=== PATIENT | male | born 1980 | race Caucasian/White ===

== ENCOUNTER 2017-09-04 16:27 | Emergency (ER) | payer BC, SELFPAY ==
[2017-09-04 16:35] VITALS: BP 156/90; PULSE 98; RESP 14; TEMP 36.9; O2SAT 99; BMI 26.4
== END 2017-09-04 16:48 | disposition left against medical advice (07) ==
LOC: ER 16:39 → UTC 16:42
PROVIDERS: Emergency Provider Nurse Practitioner; Family Provider Family Medicine
DX: Z53.29 Procedure and treatment not carried out because of patient's decision for other reasons (principal)

== ENCOUNTER 2017-11-12 14:42 | Emergency (ER) | payer BC, SELFPAY ==
[2017-11-12 14:46] VITALS: BP 137/70; PULSE 94; RESP 20; TEMP 36.4; O2SAT 96; BMI 27.7
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
[2017-11-12 15:53] VITALS: BP 130/81; PULSE 78; RESP 18; TEMP 36.7; O2SAT 98
== END 2017-11-12 15:53 | disposition home or self-care (01) ==
PROVIDERS: Emergency Provider Emergency Medicine; Family Provider Family Medicine; PCP Family Medicine
DX: S29.019A Strain of muscle and tendon of unspecified wall of thorax, initial encounter (principal); V49.3XXA Car occupant (driver) (passenger) injured in unspecified nontraffic accident, initial encounter; Y92.488 Other paved roadways as the place of occurrence of the external cause
CPT/HCPCS: 96372; 99281

== ENCOUNTER 2019-01-23 15:54 | Emergency (ER) | payer BC, SELFPAY ==
[2019-01-23 15:59] VITALS: BP 138/90; PULSE 99; RESP 18; TEMP 36.8; O2SAT 95; BMI 25.7
[2019-01-23 16:08] VITALS: BP 138/90; PULSE 99; RESP 18; TEMP 36.8; O2SAT 95; BMI 25.7
--- NOTE | 2019-01-23 16:09 | XR_ITS ---
XR hand RT min 3V HISTORY: Pain following injury ITS.REASON: nail went through hand ORDERING PHYSICIAN: Shanice Gaona APRN PATIENT AGE: 38 years COMPARISON: None FINDINGS: No fracture or dislocation. No lytic or blastic change. There is normal mineralization.. The joint spaces are well-preserved. No significant degenerative/arthritic changes. No erosive changes evident.. No radio opaque foreign body apparent IMPRESSION: Negative, no acute finding
--- NOTE | 2019-01-23 16:32 | HMH.EDUTC ---
[facility] [place] Disposition Clinical Impression: Puncture wound Disposition: Home, Self-Care Condition on Discharge: Good Instructions: DI for Puncture Wound, Amoxicillin and Clavulanic Acid Additional Instructions: The doctor has checked you carefully, but problems can develop later. If you notice any problems or new symptoms, get medical treatment right away. How can you care for yourself at home? Keep the wound dry for the first 24 to 48 hours. After this, you can shower if your doctor okays it. Pat the wound dry. Don't soak the wound, such as in a bathtub. Your doctor will tell you when it's safe to get the wound wet. If your doctor told you how to care for your wound, follow your doctor's instructions. If you did not get instructions, follow this general advice: After the first 24 to 48 hours, wash the wound with clean water 2 times a day. Don't use hydrogen peroxide or alcohol, which can slow healing. You may cover the wound with a thin layer of petroleum jelly, such as Vaseline, and a non-stick bandage. Apply more petroleum jelly and replace the bandage as needed. Prop up the sore area on pillows anytime you sit or lie down during the next 3 days. Try to keep it above the level of your heart. This helps reduce swelling. Avoid any activity that could cause your wound to get worse. Over the counter pain medicine, such as Ibuprofen or Tylenol as directed on package for pain and fever If your doctor prescribed antibiotics, take them as directed. Do not stop taking them just because you feel better. You need to take the full course of antibiotics. When should you call for help? You have new pain, or your pain gets worse. The wound starts to bleed, and blood soaks through the bandage. Oozing small amounts of blood is normal. The skin near the wound is cold or pale or changes colour. You have tingling, weakness, or numbness near the wound. You have trouble moving the area near the wound. You have symptoms of infection, such as: Increased pain, swelling, warmth, or redness around the wound. Red streaks leading from the wound. Pus draining from the wound. A fever. Watch closely for changes in your health, and be sure to contact your doctor or nurse call line if: The wound is not closing (getting smaller). You do not get better as expected. Follow up with family doctor in the next 48-72 hours or immediately if no improvement or any worsening of symptoms Straight to the ER if any life threatening symptoms Prescriptions: Amoxicillin/Potassium Clav [Augmentin 500mg tab] 500 mg PO TID #21 tab Referrals: Mark Echols MD [Primary Care Provider] - As needed Time of Disposition: 16:57 Medical Decision Making - Keny Inquiry Pt receiving controlled substance: No Keny was queried for this patient: No Vital Signs: 01/23/19 15:59 01/23/19 16:08 Temperature 98.2 F 98.2 F Temperature Source Oral Oral Pulse Rate [Left Radial] 99 H 99 H Respiratory Rate 18 18 Blood Pressure [Right Arm] 138/90 138/90 Blood Pressure Mean [Right Arm] 106 106 Blood Pressure Source [Right Arm] Automatic Cuff Automatic Cuff Blood Pressure Position [Right Arm] Sitting Sitting 02 Sat by Pulse Oximetry 95 95 Oxygen Delivery Method Room Air Room Air Orders (Tests/Meds): ED MEDICATIONS Generic Name Dose Route Start Last Admin Trade Name Freq PRN Reason Stop Dose Admin Tetanus/Reduced Diphtheria/Acell Pertussis 0.5 ml 01/23/19 16:32 Adacel Tdap 0.5ml Syringe IM 01/23/19 16:33 .ONCE ONE ORDERS Category Date Time Status XR hand RT min 3V Stat Exams 01/23/19 16:09 Taken - Radiology Data #1 Image(s): Hand Image Reviewed: Yes I reviewed the patient's radiology image Preliminary Findings: No Fracture Seen Medical Decision Narrative: Puncture wound site irrigated and cleaned well with Hybacleanse and saline patient tolerated well [facility] [place] HPI - General Stated complaint: AO 01/23/19 @
--- NOTE | 2019-01-23 16:37 | ED_ITS ---
[facility] [place] Clinical Impression: Puncture wound Disposition: Home, Self-Care Condition on Discharge: Good Instructions: DI for Puncture Wound, Amoxicillin and Clavulanic Acid Additional Instructions: The doctor has checked you carefully, but problems can develop later. If you notice any problems or new symptoms, get medical treatment right away. How can you care for yourself at home? * Keep the wound dry for the first 24 to 48 hours. After this, you can shower if your doctor okays it. Pat the wound dry. * Don't soak the wound, such as in a bathtub. Your doctor will tell you when it's safe to get the wound wet. * If your doctor told you how to care for your wound, follow your doctor's instructions. If you did not get instructions, follow this general advice: * After the first 24 to 48 hours, wash the wound with clean water 2 times a day. Don't use hydrogen peroxide or alcohol, which can slow healing. * You may cover the wound with a thin layer of petroleum jelly, such as Vaseline, and a non-stick bandage. * Apply more petroleum jelly and replace the bandage as needed. * Prop up the sore area on pillows anytime you sit or lie down during the next 3 days. Try to keep it above the level of your heart. This helps reduce swelling. * Avoid any activity that could cause your wound to get worse. * Over the counter pain medicine, such as Ibuprofen or Tylenol as directed on package for pain and fever * If your doctor prescribed antibiotics, take them as directed. Do not stop taking them just because you feel better. You need to take the full course of antibiotics. When should you call for help? You have new pain, or your pain gets worse. * The wound starts to bleed, and blood soaks through the bandage. Oozing small amounts of blood is normal. * The skin near the wound is cold or pale or changes colour. * You have tingling, weakness, or numbness near the wound. * You have trouble moving the area near the wound. * You have symptoms of infection, such as: Increased pain, swelling, warmth, or redness around the wound. Red streaks leading from the wound. * Pus draining from the wound. A fever. Watch closely for changes in your health, and be sure to contact your doctor or nurse call line if: * The wound is not closing (getting smaller). * You do not get better as expected. * Follow up with family doctor in the next 48-72 hours or immediately if no improvement or any worsening of symptoms Straight to the ER if any life threatening symptoms Prescriptions: Amoxicillin/Potassium Clav [Augmentin 500mg tab] 500 mg PO TID #21 tab Referrals: Mark Echols MD [Primary Care Provider] - As needed Time of Disposition: 16:57 Medical Decision Making - Keny Inquiry Pt receiving controlled substance: No Keny was queried for this patient: No Vital Signs: 01/23/19 15:59 01/23/19 16:08 Temperature 98.2 F 98.2 F Temperature Source Oral Oral Pulse Rate [Left Radial] 99 H 99 H Respiratory Rate 18 18 Blood Pressure [Right Arm] 138/90 138/90 Blood Pressure Mean [Right Arm] 106 106 Blood Pressure Source [Right Arm] Automatic Cuff Automatic Cuff Blood Pressure Position [Right Arm] Sitting Sitting 02 Sat by Pulse Oximetry 95 95 Oxygen Delivery Method Room Air Room Air Orders (Tests/Meds): ED MEDICATIONS Generic Name Dose Route Start Last Admin Trade Name Freq P
[2019-01-23 17:00] VITALS: BP 138/90; PULSE 99; RESP 18; TEMP 36.8; O2SAT 95
== END 2019-01-23 17:02 | disposition home or self-care (01) ==
PROVIDERS: Emergency Provider Nurse Practitioner; PCP Family Medicine
DX: S61.431A Puncture wound without foreign body of right hand, initial encounter (principal); W22.8XXA Striking against or struck by other objects, initial encounter; Y92.89 Other specified places as the place of occurrence of the external cause; J44.9 Chronic obstructive pulmonary disease, unspecified; Z90.49 Acquired absence of other specified parts of digestive tract; F17.210 Nicotine dependence, cigarettes, uncomplicated; Z23 Encounter for immunization
CPT/HCPCS: 73130; 90471; 90715; 99201

== ENCOUNTER → 2020-01-24 07:32 | Outpatient (CLI) | payer BC, SELFPAY ==
--- NOTE | 2020-01-24 07:38 | CT_ITS ---
PROCEDURE: CT CHEST WO CON CLINICAL INDICATION: LUNG NODULE Follow-up lung nodule, solitary pulmonary nodule, abnormal chest x-ray COMPARISON: ABDPELW CT ABD PELVIS W/ CONTRAST from 08/17/2015 XR CHEST 2V from 09/01/2019 TECHNIQUE: Axial images obtained with sagittal and coronal reformats. All CT scans at the facility use one or more dose reduction, viz: automated exposure control, ma/kV adjustment per patient size (including targeted exams where dose is matched to indication, i.e. head), or iterative reconstruction technique. FINDINGS: HEART AND MEDIASTINAL STRUCTURES: Calcification is present within the central aspect of the isthmus with some low-density changes of the isthmus suggesting an isthmus nodule of the thyroid gland. Ultrasound may confirm. No mediastinal or hilar mass. There are few small mediastinal lymph nodes measuring up to 1.5 x 1 cm in the right paratracheal region. LUNGS AND PLEURAL SPACES: Changes of COPD. There is a 5 mm nodule in the lingula. This is nonspecific. On the radiograph there was a question of a left upper lobe nodule. This actually represents hypertrophy of the anterior aspect of the 2nd rib and not a true pulmonary nodule. BONY STRUCTURES: No acute bony abnormalities apparent. UPPER ABDOMEN: Unremarkable. ADDITIONAL FINDINGS: Mild bilateral gynecomastia IMPRESSION: 1. Radiographic abnormality corresponds to hypertrophy of the left 2nd rib. 2. There is a 5 mm nodule in the lingula. Consider 6-12 month follow-up to confirm stability in this patient with smoking history. 3. COPD. 4. Other nonacute findings as described above Dictated by: Yrn Vanegas MD 01/25/2020 10:09 Electronically signed by Yrn Vanegas MD in [place] 01/25/2020 10:09
== END ==
LOC: RAD 07:33
PROVIDERS: PCP Family Medicine; Visit Provider Internal Medicine
DX: R91.1 Solitary pulmonary nodule (principal)
CPT/HCPCS: 71250

== ENCOUNTER 2021-03-15 09:34 | Emergency (ER) | payer OTHER, SELFPAY ==
[2021-03-15 09:39] VITALS: BP 127/79; PULSE 97; RESP 19; TEMP 36.8; O2SAT 97; BMI 27.7
--- NOTE | 2021-03-15 09:59 | HMH.EDUTC ---
[facility] [place] Disposition Clinical Impression: Acute bronchitis Qualifiers: Bronchitis organism: unspecified organism Qualified Code(s): J20.9 - Acute bronchitis, unspecified Disposition: Home, Self-Care Condition on Discharge: Good Instructions: DI for Acute Bronchitis Additional Instructions: Drink plenty of fluids. Take tylenol or ibuprofen for pain or fever. Take the medications as directed. Follow up with your regular doctor. GO TO THE ER FOR ANY WORSENING SYMPTOMS Prescriptions: Promethazine/Dextromethorphan [Promethazine-Dm Syrup] 5 ml PO Q6HP PRN #240 syrup PRN Reason: Cough Transmission Status: Received by [facility] # methylPREDNISolone [Medrol] 4 mg PO DIRECTED 6 Days #21 tab.ds.pk Transmission Status: Received by [facility] # Azithromycin [Z-Elder 250mg Tab*] 250 mg PO UD DOSE PK #6 tab Transmission Status: Received by [facility] # Referrals: Mark Echols MD [Primary Care Provider] - Forms: Work/School Release Time of Disposition: 10:08 Medical Decision Making - Medical Records Medical records reviewed: No: I reviewed the patient's medical records. - Keny Inquiry Pt receiving controlled substance: No Vital Signs: 03/15/21 09:39 03/15/21 10:10 Temperature 98.2 F 98.3 F Temperature Source Oral Pulse Rate 95 H Pulse Rate [Left] 97 H Respiratory Rate 19 16 Blood Pressure 125/82 Blood Pressure [Right Arm] 127/79 Blood Pressure Mean [Right Arm] 95 02 Sat by Pulse Oximetry 97 [facility] [place] HPI - General Stated complaint: chest congestion, sore throat Time Seen by Provider: 03/15/21 09:59 Mode of Arrival: Ambulatory Source of Information: Patient Limitations: No Limitations Description of Symptoms (Recalled from Triage Doc. by RN): pt c/o a nonproductive cough, sore throat, nasal drainage and congestion. he believes he has bronchitis. HEENT Symptoms (Recalled from RN notes): No (sore throat, nasal drainage and congestion) Resp Symptoms (Recalled from RN notes): Yes (dry cough) Skin Symptoms (Recalled from RN notes): No MS Symptoms (Recalled from RN notes): No Functional Status (Recalled from RN notes): na - History of Present Illness Provider Complaint: He states that he has had a cough and chest congestion for the past 2 days. He denies any fever, but he has felt pretty bad. He usually gets bronchitis this time of the year at least once every year. He has not been vaccinated against covid-19. - Related Data Home Medications Medication Instructions Recorded Confirmed Umeclidinium [place] [Incruse 1 puff IH DAILY 03/25/19 03/25/19 Ellipta] Previous Rx's Medication Instructions Recorded Amoxicillin [Amoxicillin 500mg 500 mg PO TID #30 cap 03/25/19 Cap] Benzonatate [Tessalon Perle 100mg 100 mg PO TID #30 cap 09/01/19 Cap] levoFLOXacin [Levaquin 500mg 500 mg PO DAILY #7 tab 09/01/19 tab] predniSONE [Prednisone 20mg 20 mg PO BID #10 tab 09/01/19 Tab] Azithromycin [Z-Elder 250mg Tab*] 250 mg PO UD DOSE PK #6 tab 03/15/21 Promethazine/Dextromethorphan 5 ml PO Q6HP PRN #240 syrup 03/15/21 [Promethazine-Dm Syrup] methylPREDNISolone [Medrol] 4 mg PO DIRECTED 6 Days #21 03/15/21 tab.ds.pk Allergies Allergy/AdvReac Type Severity Reaction Status Date / Time No Known Allergies Allergy Verified 03/15/21 09:41 - Worker's Comp Is this a Worker's Comp case?: No H History - Hepatitis A Screen Drug use history?: No High risk sexual behaviors?: No History of sexually transmitted infection?: No Currently employed?: No Childcare worker?: No Do you have indoor plumbing?: Yes Do you have electricity?: Yes Attestation statement:: This patient has been screened for Hepatitis A risk factors. I have reviewed the patient's past medical history: Yes 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: Reports:: Chronic Obstructive Pulmonary Disease (COPD) Denies:: Cancer, Diabetes Mellitus Type 1, Diabetes Mellitus Typ
[2021-03-15 10:10] VITALS: BP 125/82; PULSE 95; RESP 16; TEMP 36.8
[2021-03-15 19:09] LABS: UTC Strep Screen (Rapid) Negative (Negative)
== END 2021-03-15 10:25 | disposition home or self-care (01) ==
PROVIDERS: Emergency Provider Nurse Practitioner Family; PCP Family Medicine
DX: J20.9 Acute bronchitis, unspecified (principal); Z20.822 Contact with and (suspected) exposure to COVID-19; F17.210 Nicotine dependence, cigarettes, uncomplicated
CPT/HCPCS: 87880; 99202; G0463; U0003

== ENCOUNTER 2021-04-12 07:45 | Emergency (ER) | payer OTHER, SELFPAY ==
[2021-04-12 07:46] VITALS: BP 142/93; PULSE 96; RESP 18; TEMP 36.8; O2SAT 98; BMI 27.7
--- NOTE | 2021-04-12 08:03 | HMH.EDGENADL ---
ED Disposition Clinical Impression: Low back pain with sciatica Qualifiers: Chronicity: acute Back pain laterality: left Sciatica laterality: sciatica of left side Qualified Code(s): M54.42 - Lumbago with sciatica, left side Disposition: Home, Self-Care Condition on Discharge: Good Instructions: DI for Back Pain With Sciatica Additional Instructions: Ibuprofen for pain. Prednisone as prescribed. Additional instructions for BACK PAIN: See your physician as soon as possible for further evaluation. Return immediately if back pain becomes intolerable, or if fever, numbness or weakness of your legs, loss of control of your bowels or bladder. Prescriptions: Ibuprofen [Ibuprofen 800mg Tablet] 800 mg PO Q8HP PRN #15 tab PRN Reason: Moderate Pain Transmission Status: Received by [facility] #[id number] predniSONE [Prednisone 20mg Tab] 20 mg PO BID #10 tab Transmission Status: Pending to [facility] #[id number] Referrals: Mark Echols MD [Primary Care Provider] - - Critical Care Critical Care Time: No Attestation: On 04/12/21, the high probability of a clinically significant, sudden or life threatening deterioration of the following system(s) required my full and direct attention, intervention and personal management. The time I documented below is in addition to time spent performing reported procedures but includes the following listed in this critical care notation. Medical Decision Making - Keny Inquiry Pt receiving controlled substance: No Vital Signs: 04/12/21 07:46 Temperature 98.2 F Temperature Source Oral Pulse Rate [Right] 96 H Respiratory Rate 18 Blood Pressure [Right Arm] 142/93 H Blood Pressure Mean [Right Arm] 109 02 Sat by Pulse Oximetry 98 Oxygen Delivery Method Room Air Orders (Tests/Meds): ED MEDICATIONS Discontinued Medications Generic Name Dose Route Start Last Admin Trade Name Freq PRN Reason Stop Dose Admin Dexamethasone Sodium Phosphate 10 mg 04/12/21 08:12 Dexamethasone 4mg/Ml 1ml Vial IM 04/12/21 08:13 ONCE ONE Ketorolac Tromethamine 60 mg 04/12/21 08:12 Ketorolac 60mg/2ml Vial IM 04/12/21 08:13 ONCE ONE General Adult HPI - General Chief complaint: Back Pain/Injury Stated complaint: back pain, no accident Time Seen by Provider: 08/19/21 08:03 Mode of Arrival: Family Vehicle Limitations: No Limitations Description of Symptoms (Recalled from ER Triage Doc. by RN): Patient c/o left lower back pain that radiates down his left leg since yesterday. Patient denies any recent injury. Patient this same thing happened two weeks ago but resolved on its own. - History of Present Illness HPI narrative: Complains of left lower lumbar pain for 2 days. Pain worsens with sitting down and certain movements. Pain intermittently radiates down his left leg to the knee area. Denies numbness, tingling, or weakness of the legs, numbness of groin, loss of bowel or bladder control. No injury recalled. He had a similar episode a couple of weeks ago that resolved without treatment. He says that he has discussed his current symptoms with some of his friends and they suggested that he had a pinched nerve. Denies previous back problems. - Related Data Home Medications Medication Instructions Recorded Confirmed Umeclidinium [place] [Incruse 1 puff IH DAILY 03/25/19 03/25/19 Ellipta] Previous Rx's Medication Instructions Recorded Amoxicillin [Amoxicillin 500mg 500 mg PO TID #30 cap 03/25/19 Cap] Benzonatate [Tessalon [place] 100mg 100 mg PO TID #30 cap 09/01/19 Cap] levoFLOXacin [Levaquin 500mg 500 mg PO DAILY #7 tab 09/01/19 tab] predniSONE [Prednisone 20mg 20 mg PO BID #10 tab 09/01/19 Tab] Albuterol Sulfate [Albuterol 2 puffs IH Q6HP PRN 30 Days #1 03/15/21 Sulfate Hfa] hfa.[email or web address].[email or web address] Azithromycin [Z-Elder 250mg Tab*] 250 mg PO UD DOSE PK #6 tab 03/15/21 Promethazine/Dextromethorphan 5 ml PO Q6HP P
[2021-04-12 09:10] VITALS: BP 142/93; PULSE 76; RESP 18; TEMP 36.8; O2SAT 98
== END 2021-04-12 09:19 | disposition home or self-care (01) ==
PROVIDERS: Emergency Provider Emergency Medicine; PCP Family Medicine
DX: M54.42 Lumbago with sciatica, left side (principal); J44.9 Chronic obstructive pulmonary disease, unspecified; F17.210 Nicotine dependence, cigarettes, uncomplicated
CPT/HCPCS: 99281

== ENCOUNTER 2021-05-13 19:28 | Emergency (ER) | payer OTHER, SELFPAY ==
--- NOTE | 2021-05-13 20:49 | PC.NURSE ---
Pt was triage and provided a urine sample and then walked out. Called pt on cell phone and left message to confirm he was LWBS. Pt did not have an IV in place.
[2021-05-13 20:55] VITALS: BP 154/111; PULSE 96; RESP 18; TEMP 36.8; O2SAT 96
== END 2021-05-13 20:58 | disposition left against medical advice (07) ==
LOC: ER 20:29
PROVIDERS: Emergency Provider Emergency Medicine; PCP Family Medicine
DX: Z53.21 Procedure and treatment not carried out due to patient leaving prior to being seen by health care provider (principal)
CPT/HCPCS: 99211

== ENCOUNTER → 2021-05-14 12:00 | Outpatient (CLI) | payer OTHER, SELFPAY ==
--- NOTE | 2021-05-14 12:05 | CT_ITS ---
PROCEDURE: CT ABDOMEN PELVIS WO CON CLINICAL INDICATION: FLANK PAIN Right flank pain COMPARISON: CT ABDPELW CT ABD PELVIS W/ CONTRAST from 08/17/2015 TECHNIQUE: Axial images obtained with sagittal and coronal reformats. All CT scans at the facility use one or more dose reduction, viz: automated exposure control, ma/kV adjustment per patient size (including targeted exams where dose is matched to indication, i.e. head), or iterative reconstruction technique. FINDINGS: LOWER THORAX: 6 mm nodular opacity present in the lingula not significantly changed. ABDOMEN & PELVIS: Prior cholecystectomy. No focal liver lesion. The spleen, adrenal glands, and pancreas have an unremarkable appearance. No right renal calculi evident. No ureteral dilatation. There are 2 stones in the left kidney 1 in the upper pole and 1 in the lower pole each at approximately 3 mm. The there is a 3 mm stone at the trigone of the urinary bladder on the right and could be just at the UVJ or passed into the urinary bladder. No intestinal obstruction or free air. Unremarkable appearing appendix. There are few colonic diverticula versus undescended haustra in the sigmoid region. No evidence of diverticulitis. No acute bony anomaly. IMPRESSION: 3 mm stone in the right aspect of the urinary bladder at the trigone region and may be related to small stone at the meatus of the ureterovesical junction or actually within the urinary bladder. No significant ureteral dilatation. Left nephrolithiasis. Dictated by: Yrn Vanegas MD 05/14/2021 12:59 Yrn Vanegas MD in [place] 05/14/2021 12:59
== END ==
LOC: RAD 12:03
PROVIDERS: PCP Family Medicine; Visit Provider Nurse Practitioner Family
DX: R10.9 Unspecified abdominal pain (principal)
CPT/HCPCS: 74176

== ENCOUNTER 2021-06-20 09:30 | Emergency (ER) | payer OTHER, SELFPAY ==
[2021-06-20 10:05] VITALS: BP 159/79; PULSE 98; RESP 20; TEMP 36.8; O2SAT 97; BMI 27.7
--- NOTE | 2021-06-20 10:47 | HMH.EDUTC ---
[facility] [place] Disposition Clinical Impression: Gastroenteritis Diarrhea Qualifiers: Diarrhea type: unspecified type Qualified Code(s): R19.7 - Diarrhea, unspecified Disposition: Home, Self-Care Condition on Discharge: Good Instructions: Diarrhea, Viral Gastroenteritis, DI for Viral Gastroenteritis -- Adult Additional Instructions: Drink plenty of fluids. Take tylenol or ibuprofen for pain or fever. Take the medications as directed. Follow up with your regular doctor. GO TO THE ER FOR ANY WORSENING SYMPTOMS We are going to give you supplies to bring a stool sample back if you continue to have diarrhea after another 24 hours or so. This is the way to tell if you have food poisoning or different infections in your gi tract. If your diarrhea continues, please return a sample. Your blood work was essentially normal, but this doesn't completely rule anything out. If your symptoms continue or worsen, it still could be appendicitis that is starting, so return and go to the er for any worsening symptoms. Prescriptions: Ondansetron [Zofran 4mg ODT] 4 mg PO Q8HP PRN #20 tab PRN Reason: Nausea And Vomiting Transmission Status: Received by [id number] Referrals: Mark Echols MD [Primary Care Provider] - Forms: Work/School Release Time of Disposition: 11:45 Medical Decision Making - Medical Records Medical records reviewed: No: I reviewed the patient's medical records. - Keny Inquiry Pt receiving controlled substance: No Vital Signs: 06/20/21 10:05 06/20/21 11:46 Temperature 98.3 F 98.3 F Temperature Source Oral Pulse Rate 98 H Pulse Rate [Right Brachial] 98 H Respiratory Rate 20 20 Blood Pressure 159/79 H Blood Pressure [Right Arm] 159/79 H Blood Pressure Mean [Right Arm] 105 Blood Pressure Source [Right Arm] Automatic Cuff Blood Pressure Position [Right Arm] Sitting 02 Sat by Pulse Oximetry 97 Oxygen Delivery Method Room Air - Lab Data Lab results reviewed: Yes: I reviewed the patient's lab results. Lab Results 06/20/21 11:10: WBC 7.3, RBC 5.14, Hgb 17.1, Hct 51.9, MCV 101.0 H, MCH 33.2 H, MCHC 32.9, RDW 12.6, Plt Count 304, MPV 7.3 L, Neut % (Auto) 65.7, Lymph % (Auto) 25.9, Marin % (Auto) 6.3, Eos % (Auto) 1.4, Baso % (Auto) 0.7, Neut # (Auto) 4.8, Lymph # (Auto) 1.9, Marin # (Auto) 0.5, Eos # (Auto) 0.1, Baso # (Auto) 0.1 06/20/21 11:10: Sodium 140, Potassium 4.5, Chloride 104, Carbon Dioxide 29, Anion Gap 11.5, BUN 8 L, Creatinine 0.90, Estimated Creat Clear 144, Estimated GFR 93, Est GFR ( Amer) 112, Glucose 104 H, Calcium 9.3, Total Bilirubin 0.3, AST 32, ALT 36, Alkaline Phosphatase 61, Total Protein 7.8, Albumin 4.5, Globulin 3.3 H, Albumin/Globulin Ratio 1.4, Amylase 97, Lipase 108 06/20/21 11:10: Strep Scn Rapid [facility] Negative Result diagrams: 06/20/21 11:10 06/20/21 11:10 Orders (Tests/Meds): ORDERS Category Date Time Status Strep Screen Confirmation Routine Micro 06/20/21 11:10 Received [facility] [place] HPI - General Stated complaint: vomiting, diarreha, chills Time Seen by Provider: 06/20/21 10:47 Mode of Arrival: Ambulatory Source of Information: Patient Limitations: No Limitations Description of Symptoms (Recalled from Triage Doc. by RN): PATIENT C/O STOMACH PAIN, DIARRHEA AND CHILLS THAT STARTED FRIDAY NIGHT HEENT Symptoms (Recalled from RN notes): No Resp Symptoms (Recalled from RN notes): No Skin Symptoms (Recalled from RN notes): Yes MS Symptoms (Recalled from RN notes): No Functional Status (Recalled from RN notes): WNL - History of Present Illness Provider Complaint: He c/o diarrhea and gi upset since yesterday. He denies abdominal pain. - Related Data Home Medications Medication Instructions Recorded Confirmed Fluticasone/Umeclidin/Vilanter 1 puff IH DAILY 06/20/21 06/20/21 [Trelegy Ellipta 100-62.5-25] Previous Rx's Medication Instructions Recorded Ondansetron [Zofran 4mg ODT] 4 mg PO Q
[2021-06-20 11:13] LABS: UTC Strep Screen (Rapid) Negative (Negative)
[2021-06-20 11:29] LABS: Basophils # 0.1 K/mm3 (0-0.2); Basophils % 0.7 % (0.1-2.0); Eosinophils # 0.1 K/mm3 (0.0-0.4); Eosinophils % 1.4 % (0.1-12.0); Hematocrit 51.9 % (42.0-52.0); Hemoglobin 17.1 g/dL (14.1-18.0); Lymphocytes # 1.9 K/mm3 (0.7-4.5); Lymphocytes % 25.9 % (10-50); Mean Corpuscular HGB Conc 32.9 g/dL (31.8-35.4); Mean Corpuscular Hemoglobin 33.2 pg (27.0-31.2); Mean Platelet Volume 7.3 fl (7.4-10.4); Monocytes # 0.5 K/mm3 (0.1-1.0); Monocytes % 6.3 % (1.7-9.3); Neutrophils # 4.8 K/mm3 (1.8-7.8); Neutrophils % 65.7 % (37.0-80.0); Platelet Count 304 K/mm3 (142-424); Red Blood Count 5.14 M/mm3 (4.60-6.20); Red Cell Distribution Width 12.6 % (11.5-17.5); White Blood Count 7.3 K/mm3 (4.8-10.8)
[2021-06-20 11:37] LABS: Alanine Aminotransferase 36 U/L (12-78); Albumin Level 4.5 g/dl (3.5-5.0); Albumin/Globulin Ratio 1.4 (1.1-1.8); Alkaline Phosphatase 61 U/L (38-126); Amylase 97 U/L (30-110); Anion Gap 11.5 mEq/L (5-15); Aspartate Amino Transferase 32 U/L (17-59); Bilirubin,Total 0.3 mg/dl (0.2-1.3); Blood Urea Nitrogen 8 mg/dl (9-20); Calcium 9.3 mg/dl (8.4-10.2); Carbon Dioxide 29 mmol/L (22.0-30.0); Chloride 104 mmol/L (98-107); Creatinine Clearance Estimated 144 mL/min (50-200); Estimated Glomerular Filt Rate 93 ml/min (>60); GFR (African American) 112 ML/MIN (>60); Globulin 3.3 g/dL (1.3-3.2); Glucose 104 mg/dl (74-100); Lipase 108 U/L (23-300); Potassium 4.5 mmoL/L (3.5-5.1); Sodium 140 mmol/L (136-145); Total Protein,Serum 7.8 g/dl (6.3-8.2)
[2021-06-20 11:46] VITALS: BP 159/79; PULSE 98; RESP 20; TEMP 36.8; O2SAT 97
== END 2021-06-20 11:55 | disposition home or self-care (01) ==
PROVIDERS: Emergency Provider Nurse Practitioner Family; PCP Family Medicine
DX: K52.9 Noninfective gastroenteritis and colitis, unspecified (principal); J44.9 Chronic obstructive pulmonary disease, unspecified; F17.210 Nicotine dependence, cigarettes, uncomplicated
CPT/HCPCS: 80053; 82150; 83690; 85025; 87880; 99203; C9803; G0463; U0003; U0005

== ENCOUNTER 2021-12-03 18:09 | Emergency (ER) | payer OTHER, SELFPAY ==
[2021-12-03 18:28] VITALS: BP 133/85; PULSE 94; RESP 16; TEMP 37.7; O2SAT 94; BMI 27.7
[2021-12-03 19:05] VITALS: BP 133/85; PULSE 94; RESP 16; TEMP 37.7; O2SAT 94; BMI 27.8
--- NOTE | 2021-12-03 19:10 | HMH.EDUTC ---
[facility] [place] Clinical Impression: Influenza A, COPD exacerbation Disposition: Home, Self-Care Condition on Discharge: Good Instructions: Influenza, DI for Influenza -- Adult, COPD: When to Call for Help Additional Instructions: Drink plenty of fluids. Take tylenol or ibuprofen for pain or fever. Take the medications as directed. Follow up with your regular doctor. GO TO THE ER FOR ANY WORSENING SYMPTOMS Prescriptions: Albuterol Sulfate [Albuterol Sulfate Hfa] 2 puffs IH Q6HP PRN 30 Days #1 each PRN Reason: Shortness Of Breath Transmission Status: Received by [facility] Promethazine/Dextromethorphan [Promethazine-Dm Syrup] 5 ml PO Q6HP PRN #240 ml PRN Reason: Cough Transmission Status: Received by [facility] Ondansetron [Zofran 4mg ODT] 4 mg PO Q8HP PRN #20 tab PRN Reason: Nausea Transmission Status: Received by [facility] methylPREDNISolone [Medrol] 4 mg PO DIRECTED 6 Days #21 packet Transmission Status: Received by [facility] Oseltamivir Phosphate [Tamiflu 75mg Capsule] 75 mg PO BID #10 cap Transmission Status: Received by [facility] Azithromycin [Z-Elder 250mg Tab*] 250 mg PO UD DOSE PK #6 tab Transmission Status: Received by [facility] Referrals: Mark Echols MD [Primary Care Provider] - Forms: Work/School Release Time of Disposition: 20:08 Medical Decision Making - Medical Records Medical records reviewed: No: I reviewed the patient's medical records. - Keny Inquiry Pt receiving controlled substance: No Vital Signs: 12/03/21 18:28 12/03/21 19:05 12/03/21 20:07 Temperature 99.9 F H 99.9 F H 99.9 F H Temperature Source Oral Oral Pulse Rate 94 H Pulse Rate [Radial] 94 H 94 H Respiratory Rate 16 16 16 Blood Pressure 133/85 Blood Pressure [Right Arm] 133/85 133/85 Blood Pressure Mean [Right Arm] 101 101 Blood Pressure Source [Right Arm] Automatic Cuff Blood Pressure Position [Right Arm] Sitting Sitting 02 Sat by Pulse Oximetry 94 L 94 L Oxygen Delivery Method Room Air Room Air - Lab Data Lab results reviewed: Yes: I reviewed the patient's lab results. Lab Results 12/03/21 19:06: Influenza Type A Ag Positive A, Influenza Type B Ag Negative Orders (Tests/Meds): ED MEDICATIONS Discontinued Medications Generic Name Dose Route Start Last Admin Trade Name Tania PRN Reason Stop Dose Admin Methylprednisolone Sodium Succinate 125 mg 12/03/21 20:13 12/03/21 20:10 Methylprednisolone Sod Succ 125mg Vial IM 12/03/21 20:14 125 mg ONCE ONE Administration [facility] [place] HPI - General Stated complaint: coughing and body aching Time Seen by Provider: 12/03/21 19:10 Mode of Arrival: Ambulatory Source of Information: Patient Limitations: No Limitations Description of Symptoms (Recalled from Triage Doc. by RN): PT C/O COUGH, GENERALIZED ACHES AND GENERALIZED WEAKNESS STARTING YESTERDAY. - History of Present Illness Provider Complaint: He states that since yesterday he had had body aches, chills, fever, chest congestion, cough, and a sore throat. His daughter has similar symptoms at home. - Related Data Home Medications Medication Instructions Recorded Confirmed Fluticasone/Umeclidin/Vilanter 1 puff IH DAILY 06/20/21 12/03/21 [Trelegy Ellipta 100-62.5-25] Previous Rx's Medication Instructions Recorded Albuterol Sulfate [Albuterol 2 puffs IH Q6HP PRN 30 Days #1 each 12/03/21 Sulfate Hfa] Azithromycin [Z-Elder 250mg Tab*] 250 mg PO UD DOSE PK #6 tab 12/03/21 Ondansetron [Zofran 4mg ODT] 4 mg PO Q8HP PRN #20 tab 12/03/21 Oseltamivir Phosphate [Tamiflu 75 mg PO BID #10 cap 12/03/21 75mg Capsule] Promethazine/Dextromethorphan 5 ml PO Q6HP PRN #240 ml 12/03/21 [Promethazine-Dm Syrup] methylPREDNISolone [Medrol] 4 mg PO DIRECTED 6 Days #21 12/03/21 packet Allergies Allergy/AdvReac Type Severity Reaction Status Date / Time No Known Allergi
[2021-12-03 19:20] LABS: UTC Influenza A Antigen Positive (Negative); UTC Influenza B Antigen Negative (Negative)
[2021-12-03 20:07] VITALS: BP 133/85; PULSE 94; RESP 16; TEMP 37.7; O2SAT 94
== END 2021-12-03 20:18 | disposition home or self-care (01) ==
PROVIDERS: Emergency Provider Nurse Practitioner Family; PCP Family Medicine
DX: J10.1 Influenza due to other identified influenza virus with other respiratory manifestations (principal); J44.1 Chronic obstructive pulmonary disease with (acute) exacerbation; F17.210 Nicotine dependence, cigarettes, uncomplicated
CPT/HCPCS: 87804; 96372; 99213; G0463

== ENCOUNTER 2022-04-30 07:59 | Emergency (ER) | payer OTHER, SELFPAY ==
[2022-04-30 08:19] VITALS: BP 130/85; PULSE 99; RESP 16; TEMP 36.7; O2SAT 97; BMI 27.0
--- NOTE | 2022-04-30 08:20 | EXP.UTC ---
Discharge Plan Disposition Patient Disposition: Home, Self-Care Condition: Good Prescriptions Prescriptions: New methylprednisolone 4 mg Tablets,Dose Pack 4 mg PO DIRECTED Qty: 21 0RF amoxicillin-pot clavulanate 875-125 mg Tablet 1 tab PO Q12H Qty: 20 0RF No Action ssczyjpaask-ijfterewh-vlujpefw 1 EACH blister with device 1 puff IH DAILY promethazine-DM 120 ML syrup 5 ml PO Q6HP PRN (Reason: Cough) Qty: 240 0RF azithromycin 250 MG tablet 250 mg PO UD DOSE PK Qty: 6 0RF Rx Instructions: Take two (2) tablets today, then one (1) tablet days #2 thru #5 oseltamivir 75 MG capsule 75 mg PO BID Qty: 10 0RF albuterol sulfate 8.5 GM HFA aerosol inhaler 2 puffs IH Q6HP PRN (Reason: Shortness Of Breath) 30 Days Qty: 1 5RF ondansetron 4 MG tablet,disintegrating 4 mg PO Q8HP PRN (Reason: Nausea) Qty: 20 0RF methylprednisolone 4 MG tablets,dose pack 4 mg PO DIRECTED 6 Days Qty: 21 0RF Referrals Follow up/Referrals: Mark Echols MD [Primary Care Provider] - See instructions Activity Restrictions/Add. Instructions Additional Instructions/Restrictions: Drink plenty of fluids. Take tylenol or ibuprofen for pain or fever. Take the medications as directed. Follow up with your regular doctor. GO TO THE ER FOR ANY WORSENING SYMPTOMS Don't start the oral steroids until tomorrow, since you had the shot here today. Clinical Impressions Clinical Impression: Strep throat Stand Alone Forms Stand Alone Forms: Work/School Release Discharge ED Provider: Tc Barajas [facility] [place] HPI General Stated complaint: sore throat, NUÑEZ, body aches, cough Time Seen by Provider: 04/30/22 08:20 History of Present Illness Provider Complaint: He states that for the past 2 days he has had a worsening sore throat, chills and malaise. Related Data Home Medications Medication Instructions Recorded Confirmed fluticasone fur. 100 mcg-umeclid 1 puff IH DAILY COPD 06/20/21 12/03/21 62.5 mcg-vilant 25 mcg inhalat.powder Previous Rx's Medication Instructions Recorded albuterol sulfate 90 mcg/actuation 2 puffs IH Q6HP PRN Shortness Of 12/03/21 aerosol inhaler Breath 30 days #1 ea azithromycin 250 mg tablet 250 mg PO UD DOSE PK #6 tabs 12/03/21 methylprednisolone 4 mg tablets in 4 mg PO DIRECTED 6 days #21 12/03/21 a dose pack packets ondansetron 4 mg disintegrating 4 mg PO Q8HP PRN Nausea #20 tabs 12/03/21 tablet oseltamivir 75 mg capsule 75 mg PO BID #10 caps 12/03/21 promethazine-DM 6.25 mg-15 mg/5 mL 5 ml PO Q6HP PRN Cough #240 mL 12/03/21 oral syrup amoxicillin 875 mg-potassium 1 tab PO Q12H #20 tabs 04/30/22 clavulanate 125 mg tablet methylprednisolone 4 mg tablets in 4 mg PO DIRECTED #21 tabs 04/30/22 a dose pack Allergies Allergy/AdvReac Type Severity Reaction Status Date / Time No Known Allergies Allergy Verified 04/30/22 08:22 [facility] Social History Smoking Status: Current every day smoker tobacco type: cigarettes packs per day: 1 second hand exposure: Yes alcohol intake: never current occupational status: other Travel in the last 8 weeks: None household members: spouse and children housing: house ROS Obtained: Yes All systems reviewed & no additional complaints except as documented Constitutional Constitutional: Reports chills and Reports fever(s) Eyes Eyes: Denies eye discharge ENT Ears, Nose, Mouth, and Throat: Reports as per HPI Cardiovascular Cardiovascular: Denies chest pain Respiratory Respiratory: Denies chest congestion and Reports cough Gastrointestinal Gastrointestingal: Reports nausea; Denies abdominal pain, constipation, cramping, diarrhea or vomiting Musculoskeletal Musculoskeletal: Denies arthralgias Integumentary/Breasts Skin/Breast: Denies rash Neurologic Neurologic: Denies paresthesias Physical Exam General General appearanc
[2022-04-30 08:22] LABS: UTC Strep Screen (Rapid) Negative (Negative)
[2022-04-30 09:06] VITALS: BP 130/85; PULSE 99; RESP 16; TEMP 36.7
== END 2022-04-30 09:06 | disposition home or self-care (01) ==
PROVIDERS: Emergency Provider Nurse Practitioner Family; PCP Family Medicine
DX: U07.1 COVID-19 (principal); J02.9 Acute pharyngitis, unspecified; R11.0 Nausea; R51.9 Headache, unspecified; M79.10 Myalgia, unspecified site; R53.81 Other malaise; F17.210 Nicotine dependence, cigarettes, uncomplicated; Z79.51 Long term (current) use of inhaled steroids; Z79.52 Long term (current) use of systemic steroids; Z79.899 Other long term (current) drug therapy
CPT/HCPCS: 87880; 96372; 99213; C9803; G0463; J0696; U0003; U0005

== ENCOUNTER 2022-08-03 11:21 | Emergency (ER) | payer OTHER, SELFPAY ==
[2022-08-03 11:36] VITALS: BMI 23.6
[2022-08-03 11:50] VITALS: BP 129/86; PULSE 89; RESP 19; TEMP 36.6; O2SAT 98; BMI 26.5
--- NOTE | 2022-08-03 12:20 | EXP.UTC ---
Discharge Plan Disposition Patient Disposition: Home, Self-Care Condition: Good Prescriptions Prescriptions: New sulfamethoxazole-trimethoprim [Bactrim DS] 800-160 mg tablet 1 tab PO Q12H Qty: 20 0RF Referrals Follow up/Referrals: Mark Echols MD [Primary Care Provider] - See instructions Clinical Impressions Clinical Impression: Abscess Instructions Patient Instructions: Boil [facility]charge [facility] [facility] [place] H[place] General Stated complaint: possible boil on LT arm Mode of Arrival: Ambulatory Source of Information: Patient Limitations: No Limitations Time Seen by Provider: 08/03/22 12:05 Description of Symptoms (Recalled from Triage Doc. by RN): PATIENT C/O BOIL TO LEFT AXILLA X 2 DAYS HEENT Symptoms (Recalled from RN notes): No Resp Symptoms (Recalled from RN notes): No Skin Symptoms (Recalled from RN notes): Yes MS Symptoms (Recalled from RN notes): No Functional Status (Recalled from RN notes): WNL History of Present Illness Provider Complaint: 41 yr old male presents for a boil under left arm for 2-3 days and worsening Related Data Previous Rx's Medication Instructions Recorded sulfamethoxazole 800 1 tab PO Q12H #20 tabs 08/03/22 mg-trimethoprim 160 mg tablet (Bactrim DS) Allergies Allergy/AdvReac Type Severity Reaction Status Date / Time No Known Allergies Allergy Verified 04/30/22 08:22 Worker's Comp Is this a Worker's Comp case?: No [facility] Disclaimer: The information contained in this section may have been updated after the patient was seen, as this information can be updated by other users. 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) Smoking Status: Current every day smoker tobacco type: cigarettes packs per day: 1 second hand exposure: Yes alcohol intake: never current occupational status: other Travel in the last 8 weeks: None household members: spouse and children housing: house ROS Obtained: Yes All systems reviewed & no additional complaints except as documented Constitutional Constitutional: Reports system reviewed and no additional complaints, except as documented and Reports as per HPI Eyes Eyes: Reports system reviewed and no additional complaints, except as documented ENT Ears, Nose, Mouth, and Throat: Reports system reviewed and no additional complaints, except as documented Cardiovascular Cardiovascular: Reports system reviewed and no additional complaints, except as documented Respiratory Respiratory: Reports system reviewed and no additional complaints, except as documented Gastrointestinal Gastrointestingal: Reports system reviewed and no additional complaints, except as documented Musculoskeletal Musculoskeletal: Reports system reviewed and no additional complaints, except as documented Integumentary/Breasts Skin/Breast: Reports system reviewed and no additional complaints, except as documented, Reports as per HPI, Reports redness and Reports furuncle Neurologic Neurologic: Reports system reviewed and no additional complaints, except as documented Endocrine Endocrine: Reports system reviewed and no additional complaints, except as documented Hematologic/Lymphatic Henatologic/Lymphatic: Reports system reviewed and no additional complaints, except as documented Allergic/Immunologic Allergic/Immunologic: Reports system reviewed and no additional complaints, except as documented Physical Exam General General appearance: alert and in no apparent distress Head Head exam: atraumatic, normocephalic and normal inspection Eye Eye exam: Present normal appearance and PERRL ENT ENT exam: Present normal exam, mucous membranes moist and normal external ear exam Neck Neck
[2022-08-03 12:29] VITALS: BP 129/86; PULSE 89; RESP 19; TEMP 36.6; O2SAT 98
== END 2022-08-03 12:34 | disposition home or self-care (01) ==
LOC: ER 11:38 → UTC 11:38
PROVIDERS: Emergency Provider Nurse Practitioner Family; PCP Family Medicine
DX: L02.412 Cutaneous abscess of left axilla (principal); B95.1 Streptococcus, group B, as the cause of diseases classified elsewhere; Z16.39 Resistance to other specified antimicrobial drug
CPT/HCPCS: 10060; 87070; 87077; 87186; 87205; 99283

== ENCOUNTER 2022-08-22 09:22 | Emergency (ER) | payer OTHER, SELFPAY ==
[2022-08-22 09:30] VITALS: BP 125/88; PULSE 101; RESP 18; TEMP 36.8; O2SAT 97; BMI 26.4
[2022-08-22 09:40] VITALS: BP 125/88; PULSE 101; RESP 18; TEMP 36.8; O2SAT 97; BMI 26.5
--- NOTE | 2022-08-22 10:09 | EXP.UTC ---
Discharge Plan Disposition Patient Disposition: Home, Self-Care Condition: Good Prescriptions Prescriptions: New sulfamethoxazole-trimethoprim [Bactrim DS] 800-160 mg tablet 1 tab PO Q12H Qty: 20 0RF cephalexin 500 mg capsule 500 mg PO QID 7 Days Qty: 28 0RF mupirocin 2 % ointment 1 applic topical TID 10 Days Qty: 22 0RF No Action sulfamethoxazole-trimethoprim [Bactrim DS] 800-160 mg tablet 1 tab PO Q12H Qty: 20 0RF Referrals Follow up/Referrals: Mark Echols MD [Primary Care Provider] - See instructions Sarthak Edmondson MD [Staff Physician] - See instructions (Call office for appointment) Activity Restrictions/Add. Instructions Additional Instructions/Restrictions: *Start antibiotic(s) immediately and be sure to take as ordered for the FULL length of time although you may be feeling better or start to see improvement in the next 24-48 hours *Monitor closely. Outlined redness so that you can monitor easier. Follow up immediately for new or worsening symptoms including but not limited to redness, swelling, streaking from site fever or chills. *Warm compress 15 minutes 3-4 times day *Never squeeze or pop these on your own. Seek immediate medical attention next time this occurs Apply topical antibiotic directly on opening in area on buttock *Monitor Temp. Tylenol every 4 hours as needed and ibuprofen every 6 hours as needed (as long as your primary care doctor has told you that it is ok to take both. For fever, aches, pain. ER if no less that 101 despite Tylenol and ibuprofen ?Follow up with your family doctor/primary care physician in the next 48-72 hours if no improvement Call General Surgery for appointment Clinical Impressions Clinical Impression: Abscess and cellulitis of gluteal region Instructions Patient Instructions: Cellulitis, DI for Skin Abscess Discharge ED Provider: Shanice Gaona [facility] [place] General Stated complaint: possible boil on buttocks Mode of Arrival: Ambulatory Source of Information: Patient Limitations: No Limitations Time Seen by Provider: 08/22/22 10:09 Description of Symptoms (Recalled from Triage Doc. by RN): PATIENT C/O BOIL TO BUTTOCK AND RIGHT LOWER BACK PAIN HEENT Symptoms (Recalled from RN notes): No Resp Symptoms (Recalled from RN notes): No Skin Symptoms (Recalled from RN notes): Yes MS Symptoms (Recalled from RN notes): Yes Functional Status (Recalled from RN notes): WNL History of Present Illness Provider Complaint: Patient states that he has a large boil on his right butt cheek by his crack that has been hurting warm and getting larger and hard to the touch States that also at times when he sits wrong it will shoot pain up into his right lower back area denies known injury States that he only has pain there if he sits for awhile or sits on that side Denies pain at this time worried more about the boil area Related Data Previous Rx's Medication Instructions Recorded sulfamethoxazole 800 1 tab PO Q12H #20 tabs 08/03/22 mg-trimethoprim 160 mg tablet (Bactrim DS) cephalexin 500 mg capsule 500 mg PO QID 7 days #28 caps 08/22/22 mupirocin 2 % topical ointment 1 applic topical TID 10 days #22 08/22/22 grams sulfamethoxazole 800 1 tab PO Q12H #20 tabs 08/22/22 mg-trimethoprim 160 mg tablet (Bactrim DS) Allergies Allergy/AdvReac Type Severity Reaction Status Date / Time No Known Allergies Allergy Verified 04/30/22 08:22 Worker's Comp Is this a Worker's Comp case?: No [facility] Disclaimer: The information contained in this section may have been updated after the patient was seen, as this information can be updated by other users. 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 (Reviewed 08/03/22 @ 12:27 by Ninoska Elder ([facility]), MANAGER OF REGULATORY AFFAIRS) COPD (chronic obstructive pulmonary disease) Surgical History (Reviewed 08/03/22 @ 12:27 by Ninoska Elder ([facility]), MANAGER OF REGULATORY AFFAIRS) History of cholecystectomy Social History (Updated 08/22/22 @ 09:55 by Lynn Cardoso RN) Smoking Statu
[2022-08-22 10:26] VITALS: BP 125/88; PULSE 101; RESP 18; TEMP 36.8; O2SAT 97
== END 2022-08-22 10:28 | disposition home or self-care (01) ==
LOC: ER 09:31 → UTC 09:31
PROVIDERS: Emergency Provider Nurse Practitioner; PCP Family Medicine
DX: L02.31 Cutaneous abscess of buttock (principal); L03.317 Cellulitis of buttock
CPT/HCPCS: 99212; G0463

== ENCOUNTER 2023-02-19 11:34 | Emergency (ER) | payer OTHER, SELFPAY ==
--- NOTE | 2023-02-19 11:33 | ECG_ITS ---
APPROVED REPORT Exam: Resting ECG HR:82 bpm ECG Measurements Heart Rate 82 AXES TX 127 P 58 QRSd 80 QRS 81 QT 333 T 66 QTc 371 Conclusion SINUS RHYTHM NORMAL ECG UNCONFIRMED REPORT Electronically signed by : Beau Barrios MD 02/20/2023 09:49:20
[2023-02-19 11:36] VITALS: BP 138/88; PULSE 82; RESP 16; TEMP 36.7; O2SAT 96; BMI 25.7
--- NOTE | 2023-02-19 12:00 | XR_ITS ---
FINAL REPORT CLINICAL HISTORY: chest pain COMPARISON: September 01, 2019 FINDINGS: Two views of the chest were obtained. The heart size and pulmonary vascularity are within normal limits. The mediastinum is normal. No acute pulmonary abnormality is identified. There is no pneumothorax. The bony thorax is intact. IMPRESSION: No active cardiopulmonary disease. Reviewed, Interpreted and Dictated by Jsoe Laguerre III, MD Transcribed by Cyndy Adamson Authenticated and [facility]
[2023-02-19 12:10] LABS: Basophils % 0.5 % (0.1-2.0); Eosinophils # 0.1 K/mm3 (0.0-0.4); Eosinophils % 1.3 % (0.1-12.0); Hematocrit 47.1 % (42.0-52.0); Hemoglobin 15.1 g/dL (14.1-18.0); Lymphocytes # 2.2 K/mm3 (0.7-4.5); Mean Corpuscular HGB Conc 32.1 g/dL (31.8-35.4); Mean Corpuscular Volume 96.4 fl (80-94); Mean Platelet Volume 8.3 fl (7.4-10.4); Monocytes # 0.4 K/mm3 (0.1-1.0); Monocytes % 5.5 % (1.7-9.3); Neutrophils # 4.7 K/mm3 (1.8-7.8); Neutrophils % 62.7 % (37.0-80.0); Platelet Count 305 K/mm3 (142-424); Red Blood Count 4.88 M/mm3 (4.60-6.20); Red Cell Distribution Width 12.9 % (11.5-17.5); White Blood Count 7.4 K/mm3 (4.8-10.8)
--- NOTE | 2023-02-19 12:11 | HMH.EDGENADL ---
Discharge Plan Disposition Patient Disposition: Home, Self-Care Prescriptions Prescriptions: No Action sulfamethoxazole-trimethoprim [Bactrim DS] 800-160 mg tablet 1 tab PO Q12H Qty: 20 0RF sulfamethoxazole-trimethoprim [Bactrim DS] 800-160 mg tablet 1 tab PO Q12H Qty: 20 0RF cephalexin 500 mg capsule 500 mg PO QID 7 Days Qty: 28 0RF mupirocin 2 % ointment 1 applic topical TID 10 Days Qty: 22 0RF Referrals Follow up/Referrals: Provider,Referral, MD [Referring] - See instructions Activity Restrictions/Add. Instructions Additional Instructions/Restrictions: Recommend that you follow-up with your primary care doctor to get a cervical spine MRI given your radicular symptoms in your left arm. You may also follow-up with your primary care doctor to discuss further restratification of your chest pain today and whether not you need any downstream noninvasive imaging or stress testing. Clinical Impressions Clinical Impression: Atypical chest pain, Cervical radicular pain Discharge ED Provider: Arnoldo Oliveira General Adult HPI General Chief complaint: Chest Pain Stated complaint: chest pain Time Seen by Provider: 02/19/23 11:40 Mode of Arrival: Ambulatory Source of Information: Patient Limitations: No Limitations Description of Symptoms (Recalled from ER Triage Doc. by RN): pt to the ED with intermitten midsternal chest pain that radiates to his left shoulder x 1 week. pt reports it comes and goes with no consisten factors effcting it. History of Present Illness HPI narrative: Patient is a 42-year-old male presenting today with chest discomfort. States that he intermittently has been having left anterior chest pain for the last week. Also states he has been having isolated left arm pain that he describes as burning radiating from the left lateral aspect of his neck down his arm. The arm pain is not associated with the chest pain definitively and occurs with and without the chest pain. The chest pain he does state at times is exertional. No shortness of breath no pleuritic component to this no diaphoresis associate with this. He has no cardiovascular risk factors aside from smoking and history of COPD. Patient has not had a stress test or heart cath. He denies any left upper extremity weakness. No radiation to his back. Related Data Previous Rx's Medication Instructions Recorded sulfamethoxazole 800 1 tab PO Q12H #20 tabs 08/03/22 mg-trimethoprim 160 mg tablet (Bactrim DS) cephalexin 500 mg capsule 500 mg PO QID 7 days #28 caps 08/22/22 mupirocin 2 % topical ointment 1 applic topical TID 10 days #22 08/22/22 grams sulfamethoxazole 800 1 tab PO Q12H #20 tabs 08/22/22 mg-trimethoprim 160 mg tablet (Bactrim DS) Allergies Allergy/AdvReac Type Severity Reaction Status Date / Time No Known Allergies Allergy Verified 04/30/22 08:22 [facility] Disclaimer: The information contained in this section may have been updated after the patient was seen, as this information can be updated by other users. 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) History of cholecystectomy Social History (Updated 08/22/22 @ 09:55 by Lynn Cardoso RN) Smoking Status: Never smoker second hand exposure: Yes alcohol intake: never current occupational status: other Travel in the last 8 weeks: None household members: spouse and children housing: house ROS Obtained: Yes All systems reviewed & no additional complaints except as documented Physical Exam General General appearance: alert Respiratory Respiratory exam: Present normal lung sounds bilaterally Cardiovascular Cardiovascular exam: Present regular rate, normal rhythm and other (Normal upper extremity pulses) Extremities Exam Extremities exam: Present other (Left upper e
--- NOTE | 2023-02-19 12:13 | PC.NURSE ---
pt returned from rad
[2023-02-19 12:25] LABS: Blood Urea Nitrogen 14 mg/dl (9-20); Carbon Dioxide 23 mmol/L (22.0-30.0); Chloride 105 mmol/L (98-107); Creatinine Clearance Estimated 131 mL/min (50-200); Estimated Glomerular Filt Rate 92 ml/min (>60); GFR (African American) 111 ML/MIN (>60); Glucose 132 mg/dl (74-100); Sodium 138 mmol/L (136-145)
--- NOTE | 2023-02-19 12:47 | PC.NURSE ---
CHECKED ON PT NOTHING NEEDED, CALL ROBLES AT BS
[2023-02-19 13:00] VITALS: BP 123/89; PULSE 71; O2SAT 96
[2023-02-19 13:16] LABS: Troponin I < 0.01 ng/ml (0.00-0.034)
[2023-02-19 13:30] VITALS: BP 131/89; PULSE 68; O2SAT 96
[2023-02-19 13:59] VITALS: BP 124/80; PULSE 71; RESP 16; TEMP 37.1; O2SAT 95
[2023-02-19 14:02] VITALS: BP 124/80; PULSE 87; O2SAT 98
--- NOTE | 2023-02-19 14:02 | PC.NURSE ---
ROUNDED ON PT NEEDS NOTHING CALL LIGHT AT BS
== END 2023-02-19 14:00 | disposition home or self-care (01) ==
PROVIDERS: Emergency Provider Student in an Organized Health Care Education/Training Program; PCP Family Medicine
DX: R07.89 Other chest pain (principal); M54.12 Radiculopathy, cervical region; J44.9 Chronic obstructive pulmonary disease, unspecified
CPT/HCPCS: 71046; 80048; 84484; 85025; 93005; 99284

== ENCOUNTER 2023-03-04 08:47 | Emergency (ER) | payer OTHER, SELFPAY ==
[2023-03-04 08:48] VITALS: BP 149/97; PULSE 91; RESP 18; TEMP 36.8; O2SAT 97; BMI 25.7
--- NOTE | 2023-03-04 08:58 | XR_ITS ---
FINAL REPORT CLINICAL HISTORY: pain FINDINGS: Left elbow Three views were obtained. There is no acute fracture or dislocation. The joint spaces appear normal. No joint effusion is identified. No soft tissue abnormality is identified. IMPRESSION: No acute process. Reviewed, Interpreted and Dictated by Jose Laguerre III, MD Transcribed by Marlee Antoine Authenticated and [facility]
--- NOTE | 2023-03-04 09:11 | EXP.UTC ---
Discharge Plan Disposition Patient Disposition: Home, Self-Care Condition: Good Prescriptions Prescriptions: New ibuprofen [IBU] 800 mg tablet 800 mg PO Q8HP PRN (Reason: Moderate Pain) Qty: 30 0RF No Action sulfamethoxazole-trimethoprim [Bactrim DS] 800-160 mg tablet 1 tab PO Q12H Qty: 20 0RF sulfamethoxazole-trimethoprim [Bactrim DS] 800-160 mg tablet 1 tab PO Q12H Qty: 20 0RF cephalexin 500 mg capsule 500 mg PO QID 7 Days Qty: 28 0RF mupirocin 2 % ointment 1 applic topical TID 10 Days Qty: 22 0RF Referrals Follow up/Referrals: Mark Echols MD [Primary Care Provider] - See instructions Arnoldo Palacios DO [Staff Physician] - See instructions Activity Restrictions/Add. Instructions Additional Instructions/Restrictions: Rest the extremity, Elevate the extremity as tolerated while you are resting. Take ibuprofen for pain. I sent in a prescription to your pharmacy. Follow up with Dr. Palacios (orthopedics). I put in a referral but you need to call his office and schedule an appointment. Follow up with your regular doctor. GO TO THE ER FOR ANY WORSENING SYMPTOMS Clinical Impressions Clinical Impression: Left elbow pain Instructions Patient Instructions: DI for Tendinitis Discharge ED Provider: Tc Barajas [facility] General Stated complaint: LT arm pain no known accident Mode of Arrival: Ambulatory Source of Information: Patient Limitations: No Limitations Time Seen by Provider: 03/04/23 09:11 Description of Symptoms (Recalled from Triage Doc. by RN): Patient reports possible tennis/golfer's elbow for the past month. States he wants his left elbow xrayed. HEENT Symptoms (Recalled from RN notes): No Resp Symptoms (Recalled from RN notes): No Skin Symptoms (Recalled from RN notes): No MS Symptoms (Recalled from RN notes): Yes Functional Status (Recalled from RN notes): wnl History of Present Illness Provider Complaint: He reports that he has had left elbow pain for the past 1 month. He denies any injury. He was told by his pcp that he has tennis/golfer's elbow. He has been treated with steroids and states that it has been minimally effective. States he wants his left elbow xrayed. Related Data Previous Rx's Medication Instructions Recorded sulfamethoxazole 800 1 tab PO Q12H #20 tabs 08/03/22 mg-trimethoprim 160 mg tablet (Bactrim DS) cephalexin 500 mg capsule 500 mg PO QID 7 days #28 caps 08/22/22 mupirocin 2 % topical ointment 1 applic topical TID 10 days #22 08/22/22 grams sulfamethoxazole 800 1 tab PO Q12H #20 tabs 08/22/22 mg-trimethoprim 160 mg tablet (Bactrim DS) ibuprofen 800 mg tablet (IBU) 800 mg PO Q8HP PRN Moderate Pain 03/04/23 #30 tabs Allergies Allergy/AdvReac Type Severity Reaction Status Date / Time No Known Allergies Allergy Verified 04/30/22 08:22 Worker's Comp Is this a Worker's Comp case?: No [facility] Disclaimer: The information contained in this section may have been updated after the patient was seen, as this information can be updated by other users. 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) History of cholecystectomy Social History (Updated 08/22/22 @ 09:55 by Lynn Cardoso RN) Smoking Status: Never smoker second hand exposure: Yes alcohol intake: never current occupational status: other Travel in the last 8 weeks: None household members: spouse and children housing: house ROS Obtained: Yes All systems reviewed & no additional complaints except as documented Constitutional Constitutional: Denies chills and Denies fever(s) Eyes Eyes: Denies eye discharge ENT Ears, Nose, Mouth, and Throat: Denies dizziness, Denies otalgia and Denies sore throat Cardiovascular Cardiovascular: Denies chest pain Respiratory Respiratory: Denies leyda
[2023-03-04 09:44] VITALS: BP 149/97; PULSE 91; RESP 18; TEMP 36.8; O2SAT 97
== END 2023-03-04 09:46 | disposition home or self-care (01) ==
PROVIDERS: Emergency Provider Nurse Practitioner Family; PCP Family Medicine
DX: M25.522 Pain in left elbow (principal)
CPT/HCPCS: 73080; 99212; 99214; G0463

== ENCOUNTER 2023-04-25 10:54 | Emergency (ER) | payer OTHER, SELFPAY ==
[2023-04-25 10:55] VITALS: BP 136/89; PULSE 92; RESP 17; TEMP 36.6; O2SAT 96; BMI 26.4
[2023-04-25 11:03] VITALS: BP 136/89; PULSE 98; O2SAT 95
[2023-04-25 11:10] VITALS: PULSE 90
--- NOTE | 2023-04-25 11:37 | XR_ITS ---
FINAL REPORT CLINICAL HISTORY: med mal TTP, pos external rotation injury rolled right ankle last night COMPARISON: None FINDINGS: RIGHT ANKLE 3 views of the right ankle were obtained. There is no acute fracture or dislocation. The mortise is intact. Visualized joint spaces are normally aligned. Soft tissues are unremarkable. IMPRESSION: No acute bony abnormality. Reviewed, Interpreted and Dictated by Corby Mejia MD Transcribed by Miranda Chen Authenticated and . [facility]
--- NOTE | 2023-04-25 11:40 | HMH.EDGENADL ---
Discharge Plan Disposition Patient Disposition: Eloped Condition: Undetermined Chief Complaint: Extremity Injury, Lower Prescriptions Prescriptions: No Action sulfamethoxazole-trimethoprim [Bactrim DS] 800-160 mg tablet 1 tab PO Q12H Qty: 20 0RF ibuprofen [IBU] 800 mg tablet 800 mg PO Q8HP PRN (Reason: Moderate Pain) Qty: 30 0RF sulfamethoxazole-trimethoprim [Bactrim DS] 800-160 mg tablet 1 tab PO Q12H Qty: 20 0RF cephalexin 500 mg capsule 500 mg PO QID 7 Days Qty: 28 0RF mupirocin 2 % ointment 1 applic topical TID 10 Days Qty: 22 0RF Referrals Follow up/Referrals: Mark Echols MD [Primary Care Provider] - See instructions Clinical Impressions Clinical Impression: Ankle pain Discharge ED Provider: Jeremie Schmitz General Adult HPI General Chief complaint: Extremity Injury, Lower Stated complaint: AO8/31@work@1600, pain in Rt ankle Time Seen by Provider: 04/25/23 11:00 Mode of Arrival: Family Vehicle Source of Information: Patient Limitations: No Limitations Description of Symptoms (Recalled from ER Triage Doc. by RN): Pt c/o medial ankle pain that began after stepping off a ladder at work yesterday. States he is able to bear weight on it pretty good , hoever it is painful to rotate ankle indward. Mild swelling to medial ankle. No tenderness noted to palpation. States he did take Ibuprofen 400mg this am @ 0600 and it did not relieve his pain. He does not want to jorge l this as workman's comp. History of Present Illness HPI narrative: Patient eloped prior to completion of work-up Related Data Previous Rx's Medication Instructions Recorded sulfamethoxazole 800 1 tab PO Q12H #20 tabs 08/03/22 mg-trimethoprim 160 mg tablet (Bactrim DS) cephalexin 500 mg capsule 500 mg PO QID 7 days #28 caps 08/22/22 mupirocin 2 % topical ointment 1 applic topical TID 10 days #22 08/22/22 grams sulfamethoxazole 800 1 tab PO Q12H #20 tabs 08/22/22 mg-trimethoprim 160 mg tablet (Bactrim DS) ibuprofen 800 mg tablet (IBU) 800 mg PO Q8HP PRN Moderate Pain 03/04/23 #30 tabs Allergies Allergy/AdvReac Type Severity Reaction Status Date / Time No Known Allergies Allergy Verified 04/30/22 08:22 [facility] Disclaimer: The information contained in this section may have been updated after the patient was seen, as this information can be updated by other users. 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) History of cholecystectomy Social History (Updated 08/22/22 @ 09:55 by Lynn Cardoso RN) Smoking Status: Current every day smoker tobacco type: cigarettes packs per day: 1 second hand exposure: Yes alcohol intake: never current occupational status: other Travel in the last 8 weeks: None household members: spouse and children housing: house ROS Obtained: Yes Systems reviewed as appropriate & no additional complaints except as documented Physical Exam General General appearance: alert and in no apparent distress Head Head exam: atraumatic and normocephalic Eye Eye exam: Present normal appearance Neck Neck exam: Present normal inspection Chest Chest inspection: Present normal inspection and symmetric chest wall rise Respiratory Respiratory exam: Present normal lung sounds bilaterally; Absent respiratory distress Cardiovascular Cardiovascular exam: Present regular rate and normal rhythm Abdominal Exam Abdominal exam: Present soft Neurological Exam Neurological exam: Present alert and oriented X3 Psychiatric Psychiatric exam: Present normal affect and normal mood Skin Skin exam: Present warm and dry Medical Decision Making Medical Records Medical records reviewed: Yes I reviewed the patient's medical records. Keny Inquiry Pt receiving controlled substance: No Vital Signs: 04/25/23 10:5
--- NOTE | 2023-04-25 11:48 | PC.NURSE ---
PT GOING TO RADIOLOGY VIA W/C
[2023-04-25 12:18] VITALS: BP 134/81; PULSE 102; O2SAT 97
--- NOTE | 2023-04-25 12:21 | PC.NURSE ---
Rounded on pt. No needs voiced at this time. Call light remains within reach.
[2023-04-25 12:30] VITALS: BP 131/87; PULSE 88; O2SAT 96
[2023-04-25 13:52] VITALS: BP 130/80; PULSE 85; RESP 17; TEMP 36.6; O2SAT 97
== END 2023-04-25 14:02 | disposition left against medical advice (07) ==
PROVIDERS: Emergency Provider Emergency Medicine; PCP Family Medicine
DX: M25.571 Pain in right ankle and joints of right foot (principal); X50.1XXA Overexertion from prolonged static or awkward postures, initial encounter; Y99.0 Civilian activity done for income or pay; J44.9 Chronic obstructive pulmonary disease, unspecified; F17.210 Nicotine dependence, cigarettes, uncomplicated
CPT/HCPCS: 73610; 99283

== ENCOUNTER 2023-10-29 09:01 | Emergency (ER) | payer SELFPAY ==
[2023-10-29 09:15] VITALS: BP 117/79; PULSE 80; RESP 18; TEMP 36.8; O2SAT 98; BMI 27.3
--- NOTE | 2023-10-29 09:42 | ED_ITS ---
Discharge Plan Disposition Patient Disposition: Home, Self-Care Condition: Good Prescriptions Prescriptions: No Action sulfamethoxazole-trimethoprim [Bactrim DS] 800-160 mg tablet 1 tab PO Q12H Qty: 20 0RF ibuprofen [IBU] 800 mg tablet 800 mg PO Q8HP PRN (Reason: Moderate Pain) Qty: 30 0RF sulfamethoxazole-trimethoprim [Bactrim DS] 800-160 mg tablet 1 tab PO Q12H Qty: 20 0RF cephalexin 500 mg capsule 500 mg PO QID 7 Days Qty: 28 0RF mupirocin 2 % ointment 1 applic topical TID 10 Days Qty: 22 0RF Referrals Follow up/Referrals: Bladimir Neville MD [Primary Care Provider] - See instructions Activity Restrictions/Add. Instructions Additional Instructions/Restrictions: *Monitor Temp, Over the counter Motrin or Tylenol as directed/as needed Tylenol every 4 hours and Motrin every 6 hours (as long as your family doctor has told you that you can take it) for fever or pain. and straight to ER if unable to lower temp less than 101.0 after medication given *Warm salt water gargles may help to soothe the throat *Throat Lozenges? *Warm fluids like tea with honey may help to soothe the throat? *Sleep elevated *Humidifier/Vaporizer Make sure to finish your Levaquin as prescribed *If you did not take Penicillin shot or was unable to, start taking antibiotic immediately and make sure that you take it for the FULL length of time although you should start to feel better in 24-48 hours *change toothbrush and toothpaste 24-48 hours after starting to take antibiotics so you do not reinfect yourself Monitor Temp. Tylenol and/or Ibuprofen as needed. ER if fever is no less than 101 despite alternating Tylenol and Ibuprofen * Encourage fluids, water, Gatorade, powerade, pedialyte if /toddler/or child *Cold fluids, popsicles and ice cream may feel good on his throat Follow up IMMEDIATELY for new or worsening symptoms or no Noticeable improvement over the next 48-72 hours. 911 for difficulty breathing or swallowing Clinical Impressions Clinical Impression: Strep throat Stand Alone Forms Stand Alone Forms: Work/School Release Instructions Patient Instructions: Strep Throat, Diarrhea Discharge ED Provider: Shanice Gaona [facility] [place] General Stated complaint: v/d sore throat Mode of Arrival: Ambulatory Source of Information: Patient Limitations: No Limitations Time Seen by Provider: 10/29/23 09:42 Description of Symptoms (Recalled from Triage Doc. by RN): PATIENT C/O STOMACH ACHE, DIARRHEA, SORE THROAT, AND BODY ACHES SINCE FRIDAY HEENT Symptoms (Recalled from RN notes): Yes Resp Symptoms (Recalled from RN notes): No Skin Symptoms (Recalled from RN notes): No MS Symptoms (Recalled from RN notes): No Functional Status (Recalled from RN notes): WNL History of Present Illness Provider Complaint: Patient states that he has been sick since last week seen his PCP last week and has continued to get worse Still having sore throat, hurting when he swallows, diarrhea, cramping and body aches States today his throat was hurting worse so he came in to get checked worried that he may have strep throat Related Data Previous Rx's Medication Instructions Recorded sulfamethoxazole 800 1 tab PO Q12H #20 tabs 08/03/22 mg-trimethoprim 160 mg tablet (Bactrim DS) cephalexin 500 mg capsule 500 mg PO QID 7 days #28 caps 08/22/22 mupirocin 2 % topical ointment 1 applic topical TID 10 days #22 08/22/22 grams sulfamethoxazole 800 1 tab PO Q12H #20 tabs 08/22/22 mg-trimethoprim 160 mg tablet (Bactrim DS) ibuprofen 800 mg tablet (IBU) 800 mg PO Q8HP PRN Moderate Pain 03/04/23 #30 tabs Allergies Allergy/AdvReac Type Severity Reaction Status Date / Time No Known Allergies Allergy Verified 04/30/22 08:22 Worker's Comp Is this a Worker's Comp case?: No [facility] Disclaimer: The information contained in this section may have been updated after the patient was seen, as this information can be updated by other users. 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) History of cholecystectomy Social History (Updated 08/22/22 @ 09:55 by Lynn Cardoso RN) Smoking Status: Current every day smoker tobacco type: cigarettes packs per day: 1 second hand exposure: Yes alcohol intake: never current occupational status: other Travel in the last 8 weeks: None household members: spouse and children housing: house ROS Obtained: Yes All systems reviewed & no additional complaints except as documented and Yes Systems reviewed as appropriate & no additional complaints except as documented Constitutional Constitutional: Reports system reviewed and no additional complaints, except as documented, Reports as per HPI, Reports body ache, Reports chills and Reports headache(s) ENT Ears, Nose, Mouth, and Throat: Reports system reviewed and no additional complaints, except as documented, Reports as per HPI, Reports headache(s), Reports nasal congestion and Reports sore throat Cardiovascular Cardiovascular: Reports system reviewed and no additional complaints, except as documented and Reports as per HPI Respiratory Respiratory: Reports system reviewed and no additional complaints, except as documented, Reports as per HPI and Reports cough Gastrointestinal Gastrointestingal: Reports system reviewed and no additional complaints, except as documented, as per HPI, cramping and diarrhea Genitourinary Male Genitourinary: Reports system reviewed and no additional complaints, except as documented and Reports as per HPI Neurologic Neurologic: Reports headache(s) Physical Exam General General appearance: alert and in no apparent distress ENT ENT exam: Present mucous membranes moist Expanded ENT Exam Nose exam: Absent sinus tenderness Respiratory Respiratory exam: Present normal lung sounds bilaterally; Absent respiratory distress or wheezes Cardiovascular Cardiovascular exam: Present regular rate, normal rhythm and normal heart sounds Neurological Exam Neurological exam: Present alert, oriented X3 and normal gait Medical Decision Making Keny Inquiry Pt receiving controlled substance: No Keny was queried for this patient: No Vital Signs: 10/29/23 09:15 Temperature 98.2 F Temperature Source Oral Pulse Rate [Left Brachial] 80 Respiratory Rate 18 Blood Pressure [Left Arm] 117/79 Blood Pressure Mean [Left Arm] 91 Blood Pressure Source [Left Arm] Automatic Cuff Blood Pressure Position [Left Arm] Sitting 02 Sat by Pulse Oximetry 98 Oxygen Delivery Method Room Air Lab Data Lab results reviewed: Yes I reviewed the patient's lab results.
[2023-10-29] MEDS: PENICILLIN G BENZATHINE 1,200,000 UNITS/2ML SYRINGE 1200000 UNIT IM (10:04)
[2023-10-29 10:06] VITALS: BP 117/79; PULSE 80; RESP 18; TEMP 36.8; O2SAT 98
== END 2023-10-29 10:12 | disposition home or self-care (01) ==
PROVIDERS: Emergency Provider Nurse Practitioner; PCP Family Medicine
DX: J02.0 Streptococcal pharyngitis (principal); R07.0 Pain in throat; R11.2 Nausea with vomiting, unspecified; R19.7 Diarrhea, unspecified; J44.9 Chronic obstructive pulmonary disease, unspecified; F17.210 Nicotine dependence, cigarettes, uncomplicated
CPT/HCPCS: 96372; 99212; 99214; G0463; J0561

== ENCOUNTER 2023-12-08 05:12 | Emergency (ER) | payer SELFPAY ==
--- NOTE | 2023-12-08 05:15 | HMH.EDGENADL ---
Discharge Plan Disposition Patient Disposition: Home, Self-Care Prescriptions Prescriptions: New azithromycin 250 mg tablet See Rx Instructions .ROUTE .COMPLEX Qty: 6 0RF Rx Instructions: For 250 mg dose pack: take 500 mg today (day 1), then 250 mg for 4 days (days 2-5) prednisone 50 mg tablet 50 mg PO DAILY 5 Days Qty: 5 0RF albuterol sulfate 1.25 mg/3 mL solution for nebulization 1.25 mg inhalation Q4H PRN (Reason: bronchospasm) Qty: 90 0RF No Action sulfamethoxazole-trimethoprim [Bactrim DS] 800-160 mg tablet 1 tab PO Q12H Qty: 20 0RF ibuprofen [IBU] 800 mg tablet 800 mg PO Q8HP PRN (Reason: Moderate Pain) Qty: 30 0RF sulfamethoxazole-trimethoprim [Bactrim DS] 800-160 mg tablet 1 tab PO Q12H Qty: 20 0RF cephalexin 500 mg capsule 500 mg PO QID 7 Days Qty: 28 0RF mupirocin 2 % ointment 1 applic topical TID 10 Days Qty: 22 0RF Referrals Follow up/Referrals: Bladimir Neville MD [Primary Care Provider] - See instructions Activity Restrictions/Add. Instructions Additional Instructions/Restrictions: Please take antibiotics and steroids as prescribed for treatment of COPD exacerbation. Please use albuterol nebulizer as needed. Please follow-up with your primary care provider. Please return to the emergency department if you develop any new or worsening symptoms or become concerned for your health. Clinical Impressions Clinical Impression: COPD exacerbation Stand Alone Forms Stand Alone Forms: Work/School Release Discharge ED Provider: Sumanth Gupta General Adult HPI General Chief complaint: Shortness of Breath/Dyspnea Stated complaint: SOA Time Seen by Provider: 12/08/23 05:15 History of Present Illness HPI narrative: 43-year-old male with history of COPD presents with worsening shortness of breath. He reports that he woke up yesterday and since that time has had severe wheezing, productive cough of brown sputum, tightness. He reports he has not had something this bad happened before. 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 He reports waking up in a sweat but did not check his temperature. Related Data Previous Rx's Medication Instructions Recorded sulfamethoxazole 800 1 tab PO Q12H #20 tabs 08/03/22 mg-trimethoprim 160 mg tablet (Bactrim DS) cephalexin 500 mg capsule 500 mg PO QID 7 days #28 caps 08/22/22 mupirocin 2 % topical ointment 1 applic topical TID 10 days #22 08/22/22 grams sulfamethoxazole 800 1 tab PO Q12H #20 tabs 08/22/22 mg-trimethoprim 160 mg tablet (Bactrim DS) ibuprofen 800 mg tablet (IBU) 800 mg PO Q8HP PRN Moderate Pain 03/04/23 #30 tabs albuterol sulfate 1.25 mg/3 mL 1.25 mg (3 mL) inhalation Q4H PRN 12/08/23 solution for nebulization bronchospasm #90 mL azithromycin 250 mg tablet See Rx Instructions PO .COMPLEX #6 12/08/23 tabs prednisone 50 mg tablet 50 mg PO DAILY 5 days #5 tabs 12/08/23 Allergies Allergy/AdvReac Type Severity Reaction Status Date / Time No Known Allergies Allergy Verified 12/08/23 05:29 [facility] Disclaimer: The information contained in this section may have been updated after the patient was seen, as this information can be updated by other users. 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 (Reviewed 08/03/22 @ 12:27 by Ninoska Elder ([facility]), MECH[employer]INEERING TECHNOLOGIST) COPD (chronic obstructive pulmonary disease) Surgical History (Reviewed 08/03/22 @ 12:27 by Ninoska Elder ([facility]), MECHANICAL ENGINEERING TECHNOLOGIST) History of cholecystectomy Social History (Updated 08/22/22 @ 09:55 by Lynn Cardoso RN) Smoking Status: Current every day smoker tobacco type: cigarettes packs per day: 1 second hand exposure: Yes alcohol intake: never current occupational status: other Travel in the last 8 weeks: None household members: spouse and children housing: house ROS Obtained: Yes All systems reviewed & no additional complaints except as documented Physical Exam General General appearance: alert and in no apparent distress Head Head exam: atraumatic and normocephalic Eye Eye exam: Present normal appearance, PERRL and EOMI ENT ENT exam: Present normal oropharynx and normal external ear exam Neck Neck exam: Present normal inspection and full ROM Chest Chest inspection: Present normal inspection and symmetric chest wall rise; Absent tenderness Respiratory Respiratory exam: Present wheezes (Diffuse) and prolonged expiratory phase Cardiovascular Cardiovascular exam: Present regular rate and normal rhythm Abdominal Exam Abdominal exam: Present soft; Absent distention, tenderness or guarding Extremities Exam Extremities exam: Present normal inspection; Absent edema or joint swelling Back Exam Back exam: Present normal inspection; Absent tenderness Neurological Exam Neurological exam: Present alert and oriented X3; Absent motor sensory deficit Psychiatric Psychiatric exam: Present normal affect and normal mood Skin Skin exam: Present warm, dry and normal color Lymphatic Lymphatic Findings: no adenopathy Medical Decision Making Medical Records Medical records reviewed: Yes I reviewed the patient's medical records. Keny Inquiry Pt receiving controlled substance: No Keny was queried for this patient: No Vital Signs: 12/08/23 05:16 12/08/23 05:22 12/08/23 05:29 Temperature 98.3 F Temperature Source Oral Pulse Rate 108 H Pulse Rate [Left] 110 H Respiratory Rate 18 20 Blood Pressure 140/89 Blood Pressure [Right Arm] 140/89 Blood Pressure Mean 104 Blood Pressure Mean [Right Arm] 106 Blood Pressure Source [Right Arm] Automatic Cuff Blood Pressure Position [Right Arm] Sitting 02 Sat by Pulse Oximetry 95 96 96 Oxygen Delivery Method Room Air Room Air Room Air 12/08/23 05:29 12/08/23 05:29 12/08/23 05:31 Temperature Temperature Source Pulse Rate 100 H 107 H 101 H Pulse Rate [Left] Respiratory Rate 20 Blood Pressure 101/65 L Blood Pressure [Right Arm] Blood Pressure Mean 86 Blood Pressure Mean [Right Arm] Blood Pressure Source [Right Arm] Blood Pressure Position [Right Arm] 02 Sat by Pulse Oximetry 98 Oxygen Delivery Method Room Air 12/08/23 06:10 Temperature 98.3 F Temperature Source Pulse Rate 100 H Pulse Rate [Left] Respiratory Rate 16 Blood Pressure 101/65 L Blood Pressure [Right Arm] Blood Pressure Mean Blood Pressure Mean [Right Arm] Blood Pressure Source [Right Arm] Blood Pressure Position [Right Arm] 02 Sat by Pulse Oximetry Oxygen Delivery Method Lab Data Lab results reviewed: Yes I reviewed the patient's lab results. Orders (Tests/Meds): ED MEDICATIONS Discontinued Medications Generic Name Dose Route Start Last Admin Trade Name Freq PRN Reason Stop Dose Admin Albuterol/Ipratropium 6 ml 12/08/23 05:19 12/08/23 05:29 Ipratropium/Albuterol 3 Ml Neb 12/08/23 05:20 6 ml ONCE ONE Administration Methylprednisolone Sodium Succinate 125 mg 12/08/23 05:19 12/08/23 05:30 Methylprednisolone Sod Succ 125mg Vial IM 12/08/23 05:20 125 mg ONCE ONE Administration ORDERS Category Date Time Status CXR --portable [XR chest portable] Stat Exams 12/08/23 05:19 Taken Medical Decision Narrative: 43-year-old male with history of COPD presents with shortness of breath over the last couple of days. History was obtained interactive discussion with patient. On arrival, patient is [afebrile, hemodynamically stable, satting appropriately, alert, oriented x4, GCS 15], moving all extremities spontaneously. Full physical exam performed and significant for diffuse wheezing and prolonged expiratory phase bilaterally. Differential includes but is not limited to COPD exacerbation, pneumonia, URI. Patient was given DuoNeb's x 2, 125 IM Solu-Medrol for symptomatic management and correction of underlying abnormalities. Workup initiated including chest x-ray. On re-evaluation, patient [remains afebrile, HD stable.] Reports marked symptomatic improvement. Imaging independently interpreted by me and significant for hyperinflated lungs consistent with COPD without focal opacity. See radiology read for full review of final results. Labs was considered, but deemed unnecessary due to history and exam. Given patient history, exam and workup, patient's presentation most likely represents acute COPD exacerbation. Patient observed for period time after nebulizer and remained symptomatically improved. He was discharged with prescription for prednisone and azithromycin for treatment of acute COPD exacerbation. Also prescribed additional albuterol nebulizer solution. Procedures Risk/Benefits of Procedure(s) Were Explained: Yes Critical Care Critical Care Time Critical Care Time: No
[2023-12-08 05:16] VITALS: BP 140/89; PULSE 108; RESP 18; O2SAT 95
--- NOTE | 2023-12-08 05:19 | XR_ITS ---
PROCEDURE INFORMATION: Exam: XR Chest Exam date and time: 12/08/2023 5:22 AM Age: 43 years old Clinical indication: Cough and shortness of breath; Additional info: SOA, copd, productive cough TECHNIQUE: Imaging protocol: Radiologic exam of the chest. Views: 1 view. COMPARISON: CR XR CHEST 2V 02/19/2023 12:00 PM FINDINGS: Lungs: Unremarkable. No consolidation. Pleural spaces: Unremarkable. No pleural effusion. No pneumothorax. Heart/Mediastinum: Unremarkable. No cardiomegaly. Bones/joints: Unremarkable. IMPRESSION: No acute findings.
[2023-12-08 05:22] VITALS: BP 140/89; PULSE 110; RESP 20; TEMP 36.8; O2SAT 96; BMI 27.0
[2023-12-08 05:29] VITALS: PULSE 100; PULSE 107; O2SAT 96
[2023-12-08] MEDS: IPRATROPIUM/ALBUTEROL 3 ML NEB 6 ML IH (05:29)
[2023-12-08] MEDS: METHYLPREDNISOLONE SOD SUCC 125MG VIAL 125 MG IM (05:30)
[2023-12-08 05:31] VITALS: BP 101/65; PULSE 101; RESP 20; O2SAT 98
[2023-12-08 06:10] VITALS: BP 101/65; PULSE 100; RESP 16; TEMP 36.8; O2SAT 98
== END 2023-12-08 06:17 | disposition home or self-care (01) ==
PROVIDERS: Emergency Provider Emergency Medicine; PCP Family Medicine
DX: J44.1 Chronic obstructive pulmonary disease with (acute) exacerbation (principal); R05.9 Cough, unspecified; R06.02 Shortness of breath; Z87.891 Personal history of nicotine dependence
CPT/HCPCS: 71045; 96372; 99283

== ENCOUNTER 2023-12-26 16:07 | Outpatient (CLI) | payer OTHER, SELFPAY ==
--- NOTE | 2023-12-26 16:11 | XR_ITS ---
FINAL REPORT CLINICAL HISTORY: BACK PAIN WITH RADICULOPATHY; left side FINDINGS: 5 views were obtained. There is no acute fracture. There is mild degenerative spurring. Alignment is within normal limits. The disc spaces are maintained. IMPRESSION: No acute process. Reviewed, Interpreted and Dictated by Corbin Miller MD Transcribed by Shauna Romano Authenticated and [facility]
== END 2023-12-26 23:59 | disposition home or self-care (01) ==
LOC: RAD 16:08
PROVIDERS: PCP Family Medicine; Visit Provider Physician Assistant
DX: M54.16 Radiculopathy, lumbar region (principal)
CPT/HCPCS: 72110

== ENCOUNTER 2024-02-05 08:02 | Emergency (ER) | payer OTHER, SELFPAY ==
[2024-02-05 08:15] VITALS: BP 137/88; PULSE 108; RESP 20; TEMP 36.5; O2SAT 97; BMI 26.9
--- NOTE | 2024-02-05 08:40 | EXP.UTC ---
Discharge Plan Disposition Patient Disposition: Home, Self-Care Condition: Good Prescriptions Prescriptions: New cefdinir 300 mg capsule 300 mg PO Q12H 10 Days Qty: 20 0RF No Action albuterol sulfate [Ventolin HFA] 90 mcg/actuation HFA aerosol inhaler 1 puff INHALATION DAILY Trelegy Ellipta 100-62.5-25 mcg Blister With Device 1 inh INHALATION DAILY Referrals Follow up/Referrals: Mark Echols MD [Primary Care Provider] - See instructions Activity Restrictions/Add. Instructions Additional Instructions/Restrictions: If symptoms persist or worsen, follow up with PCP. Clinical Impressions Clinical Impression: Acute pharyngitis Qualifiers: Pharyngitis/tonsillitis etiology: unspecified etiology Qualified Code(s): J02.9 - Acute pharyngitis, unspecified Stand Alone Forms Stand Alone Forms: Work/School Release Instructions Patient Instructions: DI for Pharyngitis/Tonsillopharyngitis -- Adult, DI for Diarrhea and Traveler's Diarrhea -- Adult Discharge ED Provider: Babita Padilla [facility] General Stated complaint: sore throat, dizzy, stomach pain Mode of Arrival: Ambulatory Source of Information: Patient Limitations: No Limitations Time Seen by Provider: 02/05/24 08:40 Description of Symptoms (Recalled from Triage Doc. by RN): PATIENT C/O SORE THROAT, HEAD SWIMMING, STOMACH ACHE, DIARRHEA, AND COUGH X 3 DAYS HEENT Symptoms (Recalled from RN notes): Yes Resp Symptoms (Recalled from RN notes): Yes Skin Symptoms (Recalled from RN notes): No MS Symptoms (Recalled from RN notes): No Functional Status (Recalled from RN notes): WNL History of Present Illness Provider Complaint: Pt reports that he has felt bad for the last 3 days with a sore throat, diarrhea, cough, and swimming head. He denies taking anything for his symptoms. Related Data Home Medications Medication Instructions Recorded Confirmed albuterol sulfate 90 mcg/actuation 1 puff inhalation DAILY 02/05/24 02/05/24 aerosol inhaler (Ventolin HFA) fluticasone fur. 100 mcg-umeclid 1 inh inhalation DAILY 02/05/24 02/05/24 62.5 mcg-vilant 25 mcg inhalat.powder (Trelegy Ellipta) Previous Rx's Medication Instructions Recorded cefdinir 300 mg capsule 300 mg PO Q12H 10 days #20 caps 02/05/24 Allergies Allergy/AdvReac Type Severity Reaction Status Date / Time No Known Allergies Allergy Verified 12/08/23 05:29 Worker's Comp Is this a Worker's Comp case?: No [facility] Disclaimer: The information contained in this section may have been updated after the patient was seen, as this information can be updated by other users. 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) COPD (chronic obstructive pulmonary disease) Surgical History , LEATHER SPONGER) History of cholecystectomy Social History (Updated 08/22/22 @ 09:55 by Lynn Cardoso RN) Smoking Status: Current every day smoker tobacco type: cigarettes packs per day: 1 second hand exposure: Yes alcohol intake: never current occupational status: other Travel in the last 8 weeks: None household members: spouse and children housing: house ROS Obtained: Yes All systems reviewed & no additional complaints except as documented Constitutional Constitutional: Reports system reviewed and no additional complaints, except as documented and Reports malaise Eyes Eyes: Reports system reviewed and no additional complaints, except as documented ENT Ears, Nose, Mouth, and Throat: Reports system reviewed and no additional complaints, except as documented, Reports sore throat and Reports vertigo Cardiovascular Cardiovascular: Reports system reviewed and no additional complaints, except as documented Respiratory Respiratory: Reports system reviewed and no additional complaints, except as documented and Reports non-productive cough Gastrointestinal Gastrointestingal: Reports system reviewed and no additional complaints, except as documented and loose stools Genitourinary Male Genitourinary: Reports system reviewed and no additional complaints, except as documented Musculoskeletal Musculoskeletal: Reports system reviewed and no additional complaints, except as documented Integumentary/Breasts Skin/Breast: Reports system reviewed and no additional complaints, except as documented Neurologic Neurologic: Reports system reviewed and no additional complaints, except as documented and Reports vertigo Endocrine Endocrine: Reports system reviewed and no additional complaints, except as documented Hematologic/Lymphatic Henatologic/Lymphatic: Reports system reviewed and no additional complaints, except as documented Allergic/Immunologic Allergic/Immunologic: Reports system reviewed and no additional complaints, except as documented Physical Exam General General appearance: alert Comment: ill appearing Head Head exam: atraumatic and normocephalic Eye Eye exam: Present normal appearance Expanded ENT Exam External ear exam: Present normal external inspection Nasal speculum exam: Bilateral: normal Mouth exam: Present normal external inspection Teeth exam: Present normal inspection Throat exam: Present tonsillar erythema and tonsillar exudate Comment: palate very red Neck Neck exam: Present normal inspection Chest Chest inspection: Present normal inspection and symmetric chest wall rise Respiratory Respiratory exam: Present normal lung sounds bilaterally Cardiovascular Cardiovascular exam: Present regular rate, normal rhythm and normal heart sounds Abdominal Exam Abdominal exam: Present soft and hyperactive bowel sounds Extremities Exam Extremities exam: Present normal inspection Back Exam Back exam: Present normal inspection Neurological Exam Neurological exam: Present alert and oriented X3 Psychiatric Psychiatric exam: Present normal affect and normal mood Skin Skin exam: Present warm, dry and intact Lymphatic Lymphatic Findings: no adenopathy Medical Decision Making Keny Inquiry Pt receiving controlled substance: No Keny was queried for this patient: No Vital Signs: 02/05/24 08:15 Temperature 97.7 F Temperature Source Oral Pulse Rate [Left Brachial] 108 H Respiratory Rate 20 Blood Pressure [Left Arm] 137/88 Blood Pressure Mean [Left Arm] 104 Blood Pressure Source [Left Arm] Automatic Cuff Blood Pressure Position [Left Arm] Sitting 02 Sat by Pulse Oximetry 97 Oxygen Delivery Method Room Air
[2024-02-05 08:43] LABS: UTC Strep Screen (Rapid) Negative (Negative)
[2024-02-05 08:44] LABS: UTC Influenza A Antigen Negative (Negative); UTC Influenza B Antigen Negative (Negative)
[2024-02-05 08:49] VITALS: BP 137/88; PULSE 108; RESP 20; TEMP 36.5; O2SAT 97
== END 2024-02-05 08:52 | disposition home or self-care (01) ==
PROVIDERS: Emergency Provider Nurse Practitioner Family; PCP Family Medicine
DX: J02.9 Acute pharyngitis, unspecified (principal); R19.7 Diarrhea, unspecified; R05.9 Cough, unspecified; F17.210 Nicotine dependence, cigarettes, uncomplicated
CPT/HCPCS: 87804; 87880; 99212; 99214; G0463

== ENCOUNTER 2024-05-06 16:14 | Emergency (ER) | payer OTHER, SELFPAY ==
[2024-05-06 16:34] VITALS: BP 133/76; PULSE 109; RESP 16; TEMP 36.7; O2SAT 97; BMI 26.4
[2024-05-06 16:38] LABS: UTC Strep Screen (Rapid) Negative (Negative)
--- NOTE | 2024-05-06 16:45 | ED_ITS ---
Discharge Plan Disposition Patient Disposition: Home, Self-Care Condition: Good Prescriptions Prescriptions: New azithromycin [Zithromax] 250 mg tablet 250 mg PO UD DOSE PK Qty: 6 0RF Rx Instructions: Take two (2) tablets today, then one (1) tablet days #2 thru #5 benzonatate 100 mg capsule 100 mg PO TIDP PRN (Reason: Cough) Qty: 30 0RF methylprednisolone 4 mg Tablets,Dose Pack 4 mg PO DIRECTED 6 Days Qty: 21 0RF Rx Instructions: Take 1 pack as directed for 6 days No Action albuterol sulfate [Ventolin HFA] 90 mcg/actuation HFA aerosol inhaler 1 puff INHALATION DAILY Trelegy Ellipta 100-62.5-25 mcg Blister With Device 1 inh INHALATION DAILY cefdinir 300 mg capsule 300 mg PO Q12H 10 Days Qty: 20 0RF Referrals Follow up/Referrals: Mark Echols MD [Primary Care Provider] - See instructions Activity Restrictions/Add. Instructions Additional Instructions/Restrictions: Drink plenty of fluids. Take tylenol or ibuprofen for pain or fever. Take the medications as directed. Follow up with your regular doctor. GO TO THE ER FOR ANY WORSENING SYMPTOMS Clinical Impressions Clinical Impression: Acute viral syndrome, Sinusitis, Pharyngitis Stand Alone Forms Stand Alone Forms: Work/School Release Instructions Patient Instructions: DI for Viral Syndrome Print Language Print Language: Burkinan Discharge ED Provider: Tc Barajas [facility] General Stated complaint: sore throat, diarrhea Mode of Arrival: Ambulatory Source of Information: Patient Limitations: No Limitations Time Seen by Provider: 05/06/24 16:38 Description of Symptoms (Recalled from Triage Doc. by RN): Reports nose and throat burning, cough, aches and sneezing. HEENT Symptoms (Recalled from RN notes): Yes Resp Symptoms (Recalled from RN notes): No Skin Symptoms (Recalled from RN notes): No MS Symptoms (Recalled from RN notes): No Functional Status (Recalled from RN notes): wnl Related Data Home Medications ?Medication ?Instructions ?Recorded ?Confirmed albuterol sulfate 90 mcg/actuation 1 puff inhalation DAILY 02/05/24 02/05/24 aerosol inhaler (Ventolin HFA) fluticasone fur. 100 mcg-umeclid 1 inh inhalation DAILY 02/05/24 02/05/24 62.5 mcg-vilant 25 mcg inhalat.powder (Trelegy Ellipta) Previous Rx's ?Medication ?Instructions ?Recorded cefdinir 300 mg capsule 300 mg PO Q12H 10 days #20 caps 02/05/24 azithromycin 250 mg tablet 250 mg PO UD DOSE PK #6 tabs 05/06/24 (Zithromax) benzonatate 100 mg capsule 100 mg PO TIDP PRN Cough #30 caps 05/06/24 methylprednisolone 4 mg tablets in 4 mg PO DIRECTED 6 days #21 tabs 05/06/24 a dose pack Allergies Allergy/AdvReac Type Severity Reaction Status Date / Time No Known Allergies Allergy Verified 12/08/23 05:29 Worker's Comp Is this a Worker's Comp case?: No [facility] Disclaimer: The information contained in this section may have been updated after the patient was seen, as this information can be updated by other users. 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) COPD (chronic obstructive pulmonary disease) Surgical History , STICK PULLER) History of cholecystectomy Social History (Updated 08/22/22 @ 09:55 by Lynn Cardoso RN) Smoking Status: Current every day smoker tobacco type: cigarettes packs per day: 1 second hand exposure: Yes alcohol intake: never current occupational status: other Travel in the last 8 weeks: None household members: spouse and children housing: house ROS Obtained: Yes All systems reviewed & no additional complaints except as documented Constitutional Constitutional: Denies chills, Reports fever(s) and Reports poor appetite Eyes Eyes: Denies eye discharge ENT Ears, Nose, Mouth, and Throat: Denies ear discharge, Reports otalgia, Denies hearing loss, Denies sinus pain and Reports sore throat Cardiovascular Cardiovascular: Denies chest pain and Denies dyspnea Respiratory Respiratory: Denies chest congestion, Reports cough and Denies dyspnea Gastrointestinal Gastrointestingal: Denies abdominal pain, diarrhea, nausea or vomiting Musculoskeletal Musculoskeletal: Denies arthralgias Integumentary/Breasts Skin/Breast: Denies rash Physical Exam General General appearance: alert and in no apparent distress Head Head exam: atraumatic, normocephalic and normal inspection Eye Eye exam: Present normal appearance, PERRL and EOMI ENT ENT exam: Present mucous membranes moist and normal external ear exam Expanded ENT Exam TM/Canal exam: Bilateral TM: erythema and bulging Nose exam: Absent sinus tenderness Mouth exam: Present normal external inspection; Absent drooling Teeth exam: Present normal inspection Throat exam: Present tonsillar erythema, tonsillomegaly and tonsillar exudate Neck Neck exam: Present normal inspection, full ROM and trachea midline; Absent tenderness, meningismus or lymphadenopathy Chest Chest inspection: Present normal inspection and symmetric chest wall rise; Absent tenderness Respiratory Respiratory exam: Present normal lung sounds bilaterally; Absent respiratory distress, wheezes, stridor or accessory muscle use Cardiovascular Cardiovascular exam: Present regular rate and normal rhythm; Absent systolic murmur or diastolic murmur Abdominal Exam Abdominal exam: Present soft and normal bowel sounds; Absent distention, tenderness, guarding, rebound or rigidity Extremities Exam Extremities exam: Present normal inspection and normal capillary refill; Absent calf tenderness Back Exam Back exam: Present normal inspection and full ROM; Absent tenderness, CVA tenderness (R) or CVA tenderness (L) Neurological Exam Neurological exam: Present alert, oriented X3 and CN II-XII intact Psychiatric Psychiatric exam: Present normal affect and normal mood Skin Skin exam: Present warm, dry, intact and normal color Medical Decision Making Medical Records Medical records reviewed: No I reviewed the patient's medical records. Keny Inquiry Pt receiving controlled substance: No Vital Signs: 05/06/24 16:34 Temperature 98.0 F Temperature Source Oral Pulse Rate [Radial] 109 H Respiratory Rate 16 Blood Pressure [Right Arm] 133/76 Blood Pressure Mean [Right Arm] 95 Blood Pressure Source [Right Arm] Automatic Cuff Blood Pressure Position [Right Arm] Sitting 02 Sat by Pulse Oximetry 97 Oxygen Delivery Method Room Air Lab Data Lab Results 05/06/24 16:24: Strep Scn Rapid Clinic Negative Orders (Tests/Meds): ORDERS Category Date Time Status Strep Screen Confirmation Stat Micro 05/06/24 16:24 Received
[2024-05-06 17:24] VITALS: BP 133/76; PULSE 109; RESP 16; TEMP 36.7; O2SAT 97
== END 2024-05-06 17:25 | disposition home or self-care (01) ==
PROVIDERS: Emergency Provider Nurse Practitioner Family; PCP Family Medicine
DX: J02.9 Acute pharyngitis, unspecified (principal); J01.90 Acute sinusitis, unspecified; R05.9 Cough, unspecified; B34.9 Viral infection, unspecified
CPT/HCPCS: 87635; 87880; 99212; 99214; G0463

== ENCOUNTER 2024-07-15 08:14 | Emergency (ER) | payer OTHER, SELFPAY ==
[2024-07-15 08:25] VITALS: BP 130/92; PULSE 80; RESP 17; TEMP 36.6; O2SAT 98; BMI 26.7
--- NOTE | 2024-07-15 08:44 | EXP.UTC ---
Discharge Plan Prescriptions Prescriptions: New promethazine 25 mg tablet 25 mg PO TID PRN (Reason: nausea and vomiting) Qty: 20 0RF No Action Trelegy Ellipta 100-62.5-25 mcg Blister With Device 1 inh INHALATION DAILY Referrals Follow up/Referrals: Mark Echols MD [Primary Care Provider] - See instructions Activity Restrictions/Add. Instructions Additional Instructions/Restrictions: Drink plenty of fluids. Take tylenol for pain or fever. Take the medications as directed. Follow up with your regular doctor. GO TO THE ER FOR ANY WORSENING SYMPTOMS The promethazine will make you drowsy, so don't drive or operate heavy machinery after taking it. Clinical Impressions Clinical Impression: Gastroenteritis Stand Alone Forms Stand Alone Forms: Work/School Release Instructions Patient Instructions: Viral Gastroenteritis, DI for Viral Gastroenteritis -- Child, Promethazine Print Language Print Language: Hungarian Discharge ED Provider: Tc Barajas [facility] HPI General Stated complaint: stomach pain, vomiting, diarrhea Mode of Arrival: Ambulatory Source of Information: Patient Limitations: No Limitations Time Seen by Provider: 07/15/24 08:41 Description of Symptoms (Recalled from Triage Doc. by RN): PATIENT C/O VOMITING AND DIARRHEA SINCE YESTERDAY HEENT Symptoms (Recalled from RN notes): No Resp Symptoms (Recalled from RN notes): No Skin Symptoms (Recalled from RN notes): No MS Symptoms (Recalled from RN notes): No Functional Status (Recalled from RN notes): WNL Related Data Home Medications ?Medication ?Instructions ?Recorded ?Confirmed fluticasone fur. 100 mcg-umeclid 1 inh inhalation DAILY 02/05/24 07/15/24 62.5 mcg-vilant 25 mcg inhalat.powder (Trelegy Ellipta) Previous Rx's ?Medication ?Instructions ?Recorded promethazine 25 mg tablet 25 mg PO TID PRN nausea and 07/15/24 vomiting #20 tabs Allergies Allergy/AdvReac Type Severity Reaction Status Date / Time No Known Allergies Allergy Verified 12/08/23 05:29 Worker's Comp Is this a Worker's Comp case?: No [facility] Disclaimer: The information contained in this section may have been updated after the patient was seen, as this information can be updated by other users. 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) History of cholecystectomy Social History (Updated 08/22/22 @ 09:55 by Lynn Cardoso RN) Smoking Status: Current every day smoker tobacco type: cigarettes packs per day: 1 second hand exposure: Yes alcohol intake: never current occupational status: other household members: spouse and children housing: house ROS Obtained: Yes All systems reviewed & no additional complaints except as documented Constitutional Constitutional: Denies chills, Denies fever(s) and Reports poor appetite ENT Ears, Nose, Mouth, and Throat: Denies dizziness and Denies sore throat Cardiovascular Cardiovascular: Denies dyspnea Respiratory Respiratory: Denies chest congestion, Denies cough and Denies dyspnea Gastrointestinal Gastrointestingal: Reports as per HPI; Denies abdominal pain Musculoskeletal Musculoskeletal: Denies arthralgias Integumentary/Breasts Skin/Breast: Denies rash Neurologic Neurologic: Denies dizziness Physical Exam General General appearance: alert and in no apparent distress Head Head exam: atraumatic and normocephalic Eye Eye exam: Present normal appearance, PERRL and EOMI ENT ENT exam: Present normal exam, normal oropharynx, mucous membranes moist, TM's normal bilaterally and normal external ear exam Neck Neck exam: Present normal inspection, full ROM and trachea midline; Absent tenderness, meningismus or lymphadenopathy Chest Chest inspection: Present normal inspection and symmetric chest wall rise; Absent tenderness, rash or abscess Respiratory Respiratory exam: Present normal lung sounds bilaterally; Absent respiratory distress, wheezes or stridor Cardiovascular Cardiovascular exam: Present regular rate and normal rhythm; Absent irregular rhythm, systolic murmur, diastolic murmur or JVD Abdominal Exam Abdominal exam: Present soft and normal bowel sounds; Absent distention, tenderness, guarding, rebound, rigidity, psoas sign, obturator sign, heel tap sign, Alexander's sign, Rovsing's sign or tenderness at McBurney's Point Extremities Exam Extremities exam: Present normal inspection and full ROM; Absent tenderness Back Exam Back exam: Present normal inspection and full ROM; Absent tenderness, CVA tenderness (R) or CVA tenderness (L) Neurological Exam Neurological exam: Present alert, oriented X3 and CN II-XII intact Psychiatric Psychiatric exam: Present normal affect and normal mood Skin Skin exam: Present warm, dry, intact and normal color Lymphatic Lymphatic Findings: no adenopathy Medical Decision Making Medical Records Screening: Per USPSTF and CDC recommendations, given the prevalence of disease in our region, it is our hospital?s policy to screen for HIV and viral Hepatitis for all patients aged 18 and over and those with ongoing risk factors. Keny Inquiry Pt receiving controlled substance: No Vital Signs: 07/15/24 08:25 Temperature 97.9 F Temperature Source Oral Pulse Rate [Left Brachial] 80 Respiratory Rate 17 Blood Pressure [Left Arm] 130/92 H Blood Pressure Mean [Left Arm] 104 Blood Pressure Source [Left Arm] Automatic Cuff Blood Pressure Position [Left Arm] Sitting 02 Sat by Pulse Oximetry 98 Oxygen Delivery Method Room Air
[2024-07-15 09:11] VITALS: BP 130/92; PULSE 80; RESP 17; TEMP 36.6; O2SAT 98
== END 2024-07-15 09:13 | disposition home or self-care (01) ==
PROVIDERS: Emergency Provider Nurse Practitioner Family; PCP Family Medicine
DX: K52.9 Noninfective gastroenteritis and colitis, unspecified (principal)
CPT/HCPCS: 99213; G0381

== ENCOUNTER 2024-09-07 08:04 | Emergency (ER) | payer OTHER, SELFPAY ==
[2024-09-07 08:20] VITALS: BP 142/90; PULSE 88; RESP 19; TEMP 36.7; O2SAT 97; BMI 26.9
--- NOTE | 2024-09-07 08:31 | ED_ITS ---
Discharge Plan Disposition Patient Disposition: Home, Self-Care Condition: Good Prescriptions Prescriptions: New ondansetron 4 mg tablet,disintegrating 4 mg PO Q8H PRN (Reason: nausea and vomiting) Qty: 10 0RF No Action Trelevanda Ellipta 100-62.5-25 mcg Blister With Device 1 inh INHALATION DAILY Referrals Follow up/Referrals: Mark Echols MD [Primary Care Provider] - See instructions Activity Restrictions/Add. Instructions Additional Instructions/Restrictions: Drink extra fluids with and between meals. If you have difficulty drinking, try very small amounts of water or suck on ice chips. ? Avoid fruit juices, as these do not replace minerals and can actually increase diarrhea. ? Children and adults can use sports drinks to replenish electrolytes. Younger children and infants should use products formulated for children, like oral rehydration solutions. ? Eat food in small amounts and let your stomach recover. ? Get lots of rest. You may feel tired or weak. ? No greasy or fried foods for the next 24-48 hours BRAT diet Bananas Rice Apples and [facility] ? Make sure to drink plenty of liquids ? Return if needed ? Straight to ER if any life threatening symptoms ? Zofran as prescribed ? Follow up with family doctor in the next 48-72 hours if no improvement or any worsening of symptoms Clinical Impressions Clinical Impression: Nausea vomiting and diarrhea Stand Alone Forms Stand Alone Forms: Work/School Release Instructions Patient Instructions: Nausea and Vomiting-Adult, Diarrhea Print Language Print Language: Indonesian Discharge ED Provider: Shanice Gaona [facility] General Stated complaint: diarrhea, stomach pain Mode of Arrival: Ambulatory Source of Information: Patient Limitations: No Limitations Time Seen by Provider: 09/07/24 08:31 Description of Symptoms (Recalled from Triage Doc. by RN): PATIENT C/O STOMACH ACHE, VOMITING, DIARRHEA AND CHILLS SINCE YESTERDAY HEENT Symptoms (Recalled from RN notes): No Resp Symptoms (Recalled from RN notes): No Skin Symptoms (Recalled from RN notes): No MS Symptoms (Recalled from RN notes): No Functional Status (Recalled from RN notes): WNL History of Present Illness Provider Complaint: Patient states that he thinks he has a stomach bug States that he has been having N/V/D since yesterday and chills States today he wasnt feeling well and unable to go to work today so he came in to get something for the nausea and a work note Related Data Home Medications ?Medication ?Instructions ?Recorded ?Confirmed fluticasone fur. 100 mcg-umeclid 1 inh inhalation DAILY 02/05/24 09/07/24 62.5 mcg-vilant 25 mcg inhalat.powder (Trelegy Ellipta) Previous Rx's ?Medication ?Instructions ?Recorded ondansetron 4 mg disintegrating 4 mg PO Q8H PRN nausea and 09/07/24 tablet vomiting #10 tabs Allergies Allergy/AdvReac Type Severity Reaction Status Date / Time No Known Allergies Allergy Verified 12/08/23 05:29 Worker's Comp Is this a Worker's Comp case?: No [facility] Disclaimer: The information contained in this section may have been updated after the patient was seen, as this information can be updated by other users. 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 Social History (Updated 07/15/24 @ 09:11 by Tc Barajas APRN) Smoking Status: Current every day smoker tobacco type: cigarettes packs per day: 1 second hand exposure: Yes alcohol intake: never current occupational status: other Travel in the last 8 weeks: None household members: spouse and children housing: house Have you lived/traveled outside US in past 30 days?: No Contact w/someone who lives/traveled outside US past 30 days?: No Exposure to someone with infectious disease in past 14 days?: No Do you have a fever (greater than 100.4 F or 38 C)?: No Have you tested positive for COVID-19: No Exposed to someone with COVID-19 in past 14 days?: No Do you have a sore throat?: No Do you have a cough?: No Do you have any weakness?: No Do you have any diarrhea?: Yes Are you experiencing any unusual bleeding?: No Do you have any muscle aches/pain?: No Do you have any abdominal pain?: Yes Are you experiencing loss of taste or smell?: No ROS Obtained: Yes All systems reviewed & no additional complaints except as documented and Yes Systems reviewed as appropriate & no additional complaints except as documented Constitutional Constitutional: Reports system reviewed and no additional complaints, except as documented and Reports as per HPI ENT Ears, Nose, Mouth, and Throat: Reports system reviewed and no additional complaints, except as documented and Reports as per HPI Cardiovascular Cardiovascular: Reports system reviewed and no additional complaints, except as documented and Reports as per HPI Respiratory Respiratory: Reports system reviewed and no additional complaints, except as documented and Reports as per HPI Gastrointestinal Gastrointestingal: Reports system reviewed and no additional complaints, except as documented, as per HPI, cramping, diarrhea, nausea and vomiting Physical Exam General General appearance: alert and in no apparent distress ENT ENT exam: Present normal exam, normal oropharynx, mucous membranes moist and TM's normal bilaterally Respiratory Respiratory exam: Present normal lung sounds bilaterally; Absent respiratory distress or wheezes Cardiovascular Cardiovascular exam: Present regular rate, normal rhythm and normal heart sounds Abdominal Exam Abdominal exam: Present soft and normal bowel sounds; Absent distention or tenderness Neurological Exam Neurological exam: Present alert, oriented X3 and normal gait Medical Decision Making Medical Records Screening: Per USPSTF and CDC recommendations, given the prevalence of disease in our region, it is our hospital?s policy to screen for HIV and viral Hepatitis for all patients aged 18 and over and those with ongoing risk factors. Keny Inquiry Pt receiving controlled substance: No Keny was queried for this patient: No Vital Signs: 09/07/24 08:20 Temperature 98.0 F Temperature Source Oral Pulse Rate [Left Brachial] 88 Respiratory Rate 19 Blood Pressure [Left Arm] 142/90 H Blood Pressure Mean [Left Arm] 107 Blood Pressure Source [Left Arm] Automatic Cuff Blood Pressure Position [Left Arm] Sitting 02 Sat by Pulse Oximetry 97 Oxygen Delivery Method Room Air
[2024-09-07 08:42] VITALS: BP 142/90; PULSE 88; RESP 19; TEMP 36.7; O2SAT 97
== END 2024-09-07 08:44 | disposition home or self-care (01) ==
PROVIDERS: Emergency Provider Nurse Practitioner; PCP Family Medicine
DX: R11.2 Nausea with vomiting, unspecified (principal)
CPT/HCPCS: 99212; G0381

== ENCOUNTER 2024-09-23 16:32 | Emergency (ER) | payer OTHER, SELFPAY ==
[2024-09-23 16:42] VITALS: BP 138/90; PULSE 93; RESP 18; TEMP 36.7; O2SAT 96; BMI 27.1
--- NOTE | 2024-09-23 16:56 | EXP.UTC ---
Discharge Plan Disposition Patient Disposition: Home, Self-Care Condition: Good Prescriptions Prescriptions: New methylprednisolone 4 mg Tablets,Dose Pack 4 mg PO DIRECTED 6 Days Qty: 21 0RF Rx Instructions: Take 1 pack as directed for 6 days No Action Trelegy Ellipta 100-62.5-25 mcg Blister With Device 1 inh INHALATION DAILY Referrals Follow up/Referrals: Mark Echols MD [Primary Care Provider] - See instructions Arnoldo Palacios DO [Staff Physician] - See instructions Activity Restrictions/Add. Instructions Additional Instructions/Restrictions: Rest the extremity for the next few days at least. Avoid the repetitive activities that you have been doing that has contributed to this condition. Take the medications as directed. Don't start the oral steroids (medrol dose pack) until tomorrow since you had the steroid injection here today. Get the tennis elbow strap and use it as directed. Apply an ice pack to the painful area of your elbow for 10 to 15 minutes at a time every few hours for then next few days to try to decrease the inflammation. Follow up with Dr. Palacios (orthopedics). I put in a referral but you need to call his office and schedule an appointment. His office phone number will be on this paper work. Follow up with your regular doctor. GO TO THE ER FOR ANY WORSENING SYMPTOMS Clinical Impressions Clinical Impression: Right lateral epicondylitis Stand Alone Forms Stand Alone Forms: Work/School Release Instructions Patient Instructions: Lateral Epicondylitis Print Language Print Language: Welsh Discharge ED Provider: Tc Barajas [facility] General Stated complaint: right elbow pain,no injury Mode of Arrival: Ambulatory Source of Information: Patient Time Seen by Provider: 09/23/24 16:56 Description of Symptoms (Recalled from Triage Doc. by RN): PAIN AND KNOT ON RIGHT ELBOW, THROBBING PAIN X 3 WEEKS HEENT Symptoms (Recalled from RN notes): No Resp Symptoms (Recalled from RN notes): No Skin Symptoms (Recalled from RN notes): Yes MS Symptoms (Recalled from RN notes): Yes Functional Status (Recalled from RN notes): HURTS TO BEND OR MOVE ELBOW Related Data Home Medications ?Medication ?Instructions ?Recorded ?Confirmed fluticasone fur. 100 mcg-umeclid 1 inh inhalation DAILY 02/05/24 09/23/24 62.5 mcg-vilant 25 mcg inhalat.powder (Trelegy Ellipta) Previous Rx's ?Medication ?Instructions ?Recorded methylprednisolone 4 mg tablets in 4 mg PO DIRECTED 6 days #21 tabs 09/23/24 a dose pack Allergies Allergy/AdvReac Type Severity Reaction Status Date / Time No Known Allergies Allergy Verified 12/08/23 05:29 Worker's Comp Is this a Worker's Comp case?: No [facility] Disclaimer: The information contained in this section may have been updated after the patient was seen, as this information can be updated by other users. 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 (Reviewed 08/03/22 @ 12:27 by Ninoska Elder ([facility]), [employer]) COPD (chronic obstructive pulmonary disease) Surgical History (Reviewed 08/03/22 @ 12:27 by Ninoska Elder ([facility]), [employer]) History of cholecystectomy Social History (Updated 07/15/24 @ 09:11 by Tc Barajas [employer]) Smoking Status: Current every day smoker tobacco type: cigarettes packs per day: 1 second hand exposure: Yes alcohol intake: never current occupational status: other Travel in the last 8 weeks: None household members: spouse and children housing: house Have you lived/traveled outside US in past 30 days?: No Contact w/someone who lives/traveled outside US past 30 days?: No Exposure to someone with infectious disease in past 14 days?: No Do you have a fever (greater than 100.4 F or 38 C)?: No Have you tested positive for COVID-19: No Exposed to someone with COVID-19 in past 14 days?: No Do you have a sore throat?: No Do you have a cough?: No Do you have any weakness?: No Do you have any diarrhea?: No Are you experiencing any unusual bleeding?: No Do you have any muscle aches/pain?: No Do you have any abdominal pain?: No Are you experiencing loss of taste or smell?: No ROS Obtained: Yes All systems reviewed & no additional complaints except as documented Constitutional Constitutional: Denies chills and Denies fever(s) Eyes Eyes: Denies eye discharge ENT Ears, Nose, Mouth, and Throat: Denies dizziness, Denies otalgia and Denies sore throat Cardiovascular Cardiovascular: Denies chest pain Respiratory Respiratory: Denies shortness of breath, Denies chest congestion, Denies cough, Denies stridor and Denies wheezing Gastrointestinal Gastrointestingal: Denies nausea or vomiting Musculoskeletal Musculoskeletal: Reports as per HPI Integumentary/Breasts Skin/Breast: Denies redness, Denies rash and Denies wounds Neurologic Neurologic: Denies dizziness and Denies paresthesias Allergic/Immunologic Allergic/Immunologic: Denies wheezing Physical Exam General General appearance: alert and in no apparent distress Head Head exam: atraumatic, normocephalic and normal inspection Eye Eye exam: Present normal appearance, PERRL and EOMI ENT ENT exam: Present normal exam, normal oropharynx, mucous membranes moist, TM's normal bilaterally and normal external ear exam Neck Neck exam: Present normal inspection, full ROM and trachea midline; Absent meningismus or lymphadenopathy Chest Chest inspection: Present normal inspection and symmetric chest wall rise; Absent tenderness Respiratory Respiratory exam: Present normal lung sounds bilaterally; Absent respiratory distress Cardiovascular Cardiovascular exam: Present regular rate and normal rhythm; Absent JVD Abdominal Exam Abdominal exam: Present soft and normal bowel sounds; Absent distention, tenderness or guarding Extremities Exam Extremities exam: Present normal capillary refill; Absent calf tenderness Expanded Upper Extremity Exam Right: Shoulder exam: Present normal inspection and full ROM; Absent tenderness Arm exam: Present normal inspection and full ROM; Absent tenderness or swelling Elbow exam: Present tenderness; Absent full ROM, swelling, abrasion, laceration, ecchymosis, deformity, crepitus, dislocation, erythema, effusion, pain w/ pronation/supination or tenderness over radial head Forearm/Wrist exam: Present normal inspection and full ROM; Absent tenderness, tenderness over anatomical snuff box or pain with axial thumb loading Hand exam: Present normal inspection and full ROM; Absent tenderness Neuromotor exam: Normal wrist extension, thumb opposition, thumb IP flexion, thumb adduction and fingers 2-5 abduction Neurosensory exam: Normal radial nerve, ulnar nerve and median nerve Vascular exam: Normal capillary refill, radial pulse and ulnar pulse Back Exam Back exam: Present normal inspection; Absent tenderness Neurological Exam Neurological exam: Present alert and oriented X3 Psychiatric Psychiatric exam: Present normal affect and normal mood Skin Skin exam: Present warm, dry, intact and normal color Lymphatic Lymphatic Findings: no adenopathy Medical Decision Making Medical Records Medical records reviewed: No I reviewed the patient's medical records. Screening: Per USPSTF and CDC recommendations, given the prevalence of disease in our region, it is our hospital?s policy to screen for HIV and viral Hepatitis for all patients aged 18 and over and those with ongoing risk factors. [place]y Inquiry Pt receiving controlled substance: No Vital Signs: 09/23/24 16:42 Temperature 98.0 F Temperature Source Oral Pulse Rate [Left Radial] 93 H Respiratory Rate 18 Blood Pressure [Left Arm] 138/90 Blood Pressure Mean [Left Arm] 106 02 Sat by Pulse Oximetry 96 Procedures Risk/Benefits of Procedure(s) Were Explained: Yes Orthopedic Splinting/Casting Injury #1: Side: right Upper Extremity Injury Location: elbow Upper Extremity Immobilizer: Varun wrap, sling and applied by nurse/dr garcia Post Cast/Splinting Neuro Status: intact and no change Post Cast/Splinting Vasc Status: intact and no change
[2024-09-23] MEDS: DEXAMETHASONE 4MG/ML 1ML VIAL 10 MG IM (17:54)
[2024-09-23 18:06] VITALS: BP 138/90; PULSE 93; RESP 18; TEMP 36.7
== END 2024-09-23 18:21 | disposition home or self-care (01) ==
PROVIDERS: Emergency Provider Nurse Practitioner Family; PCP Family Medicine
DX: M77.11 Lateral epicondylitis, right elbow (principal)
CPT/HCPCS: 99212; G0381; J1100

== ENCOUNTER 2024-10-27 07:52 | Emergency (ER) | payer SELFPAY ==
[2024-10-27 07:59] VITALS: BP 141/95; PULSE 111; O2SAT 95
[2024-10-27 08:00] VITALS: BP 144/94; PULSE 111; O2SAT 95
[2024-10-27 08:06] VITALS: BP 141/95; PULSE 108; RESP 16; TEMP 36.9; O2SAT 95; BMI 27.7
--- NOTE | 2024-10-27 08:17 | HMH.EDGENADL ---
Discharge Plan Disposition Patient Disposition: Home, Self-Care Prescriptions Prescriptions: New ondansetron 4 mg tablet,disintegrating 4 mg PO Q8H PRN (Reason: nausea and vomiting) 4 Days Qty: 12 0RF No Action Trelegy Ellipta 100-62.5-25 mcg Blister With Device 1 inh INHALATION DAILY Referrals Follow up/Referrals: Mark Echols MD [Primary Care Provider] - See instructions Activity Restrictions/Add. Instructions Additional Instructions/Restrictions: At this time it was felt you are safe to be discharged home. If new or worsening symptoms please do not hesitate to return the emergency department. Please take your medications as prescribed. Clinical Impressions Clinical Impression: Acute viral syndrome Stand Alone Forms Stand Alone Forms: Work/School Release Instructions Patient Instructions: DI for Acute Abdominal Pain Print Language Print Language: [place] Discharge ED Provider: Sarbjit Joyner General Adult HPI General Chief complaint: Abdominal Pain Stated complaint: abd pain diarrhea Time Seen by Provider: 10/27/24 07:55 History of Present Illness HPI narrative: Patient is a 43-year-old male past medical history of previous cholecystectomy presents emergency department for evaluation of abdominal discomfort and diarrhea. Onset was acute over the last 48 hours multiple sick contacts at home. Otherwise he has COPD at baseline that is managed with Trelegy. 1 episode nonbloody nonbilious vomiting. No other acute complaints at this time. Please note that above description of symptoms, in this electronic medical record under categorization of recalled from ER triage doctor by RN are reflective of an initial nursing assessment, however, is not reflective of my full history and physical exam that was personally taken and clarified. Consequentially, this preceding description of symptoms, which may include the patient's categorized chief complaint in the EMR, do not reflect my personal clinical impression, and the ultimate description of history of present illness and patient stated complaints should be deferred to this section of the note. Unless stated otherwise or congruent with this section of the note, additional signs, symptoms, or incongruence should be interpreted as inaccurate with my clinical impression. Related Data Home Medications ?Medication ?Instructions ?Recorded ?Confirmed fluticasone fur. 100 mcg-umeclid 1 inh inhalation DAILY 02/05/24 10/27/24 62.5 mcg-vilant 25 mcg inhalat.powder (Trelegy Ellipta) Previous Rx's ?Medication ?Instructions ?Recorded ondansetron 4 mg disintegrating 4 mg PO Q8H PRN nausea and 10/27/24 tablet vomiting 4 days #12 tabs Allergies Allergy/AdvReac Type Severity Reaction Status Date / Time No Known Allergies Allergy Verified 10/27/24 08:25 [facility] Disclaimer: The information contained in this section may have been updated after the patient was seen, as this information can be updated by other users. 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 , [employer]) COPD (chronic obstructive pulmonary disease) Surgical History , [employer]) History of cholecystectomy Social History (Updated 07/15/24 @ 09:11 by Tc Barajas APRN) Smoking Status: Current every day smoker tobacco type: cigarettes packs per day: 1 second hand exposure: Yes alcohol intake: never current occupational status: other Travel in the last 8 weeks: None household members: spouse and children housing: house Have you lived/traveled outside US in past 30 days?: No Contact w/someone who lives/traveled outside US past 30 days?: No Exposure to someone with infectious disease in past 14 days?: No Do you have a fever (greater than 100.4 F or 38 C)?: No Have you tested positive for COVID-19: No Exposed to someone with COVID-19 in past 14 days?: No Do you have a sore throat?: No Do you have a cough?: No Do you have any weakness?: No Do you have any diarrhea?: Yes Are you experiencing any unusual bleeding?: No Do you have any muscle aches/pain?: No Do you have any abdominal pain?: Yes Are you experiencing loss of taste or smell?: No Other 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 Have you received the Flu Vaccine for this season: No Have you received the Pneumonia Vaccine: No ROS Obtained: Yes Systems reviewed as appropriate & no additional complaints except as documented Physical Exam General General appearance: alert and in no apparent distress Head Head exam: atraumatic and normocephalic Eye Eye exam: Present PERRL and EOMI ENT ENT exam: Present mucous membranes moist Neck Neck exam: Present normal inspection Chest Chest inspection: Present normal inspection and symmetric chest wall rise Respiratory Respiratory exam: Present normal lung sounds bilaterally; Absent respiratory distress Cardiovascular Cardiovascular exam: Present regular rate and normal rhythm Abdominal Exam Abdominal exam: Present soft; Absent tenderness, guarding, rebound or rigidity Extremities Exam Extremities exam: Present normal inspection Neurological Exam Neurological exam: Present alert Psychiatric Psychiatric exam: Present normal affect Skin Skin exam: Present warm and dry Medical Decision Making Medical Records Screening: Per USPSTF and CDC recommendations, given the prevalence of disease in our region, it is our hospital?s policy to screen for HIV and viral Hepatitis for all patients aged 18 and over and those with ongoing risk factors. Keny Inquiry Pt receiving controlled substance: No Vital Signs: 10/27/24 07:59 10/27/24 08:00 10/27/24 08:06 Temperature 98.4 F Temperature Source Oral Pulse Rate 111 H 111 H Pulse Rate [Right] 108 H Respiratory Rate 16 Blood Pressure 141/95 H 144/94 H Blood Pressure [Right Arm] 141/95 H Blood Pressure Mean [Right Arm] 110 Blood Pressure Source [Right Arm] Automatic Cuff Blood Pressure Position [Right Arm] Sitting 02 Sat by Pulse Oximetry 95 95 95 Oxygen Delivery Method Room Air Room Air Room Air 10/27/24 10:14 Temperature Temperature Source Pulse Rate 94 H Pulse Rate [Right] Respiratory Rate Blood Pressure 141/103 H Blood Pressure [Right Arm] Blood Pressure Mean [Right Arm] Blood Pressure Source [Right Arm] Blood Pressure Position [Right Arm] 02 Sat by Pulse Oximetry 95 Oxygen Delivery Method Room Air Lab Data Lab Results 10/27/24 08:02: WBC 5.8, RBC 4.80, Hgb 15.2, Hct 44.8, MCV 93.3, MCH 31.7 H, MCHC 33.9, RDW 12.1, Plt Count 299, MPV 9.6, Neut % (Auto) 65.3, Lymph % (Auto) 25.1, [facility] % (Auto) 8.2, Eos % (Auto) 0.7, Baso % (Auto) 0.5, Neut # (Auto) 3.8, Lymph # (Auto) 1.5, [facility] # (Auto) 0.5, Eos # (Auto) 0.0, Baso # (Auto) 0.0, Sodium 139, Potassium 4.0, Chloride 110 H, Carbon Dioxide 18 L, Anion Gap 10.9, BUN 15, Creatinine 0.90, Estimated Creat Clear 140, Estimated GFR 91, Est GFR ( Amer) 110, Glucose 100, Calcium 9.1, Total Bilirubin 0.4, AST 27, ALT 27, Alkaline Phosphatase 62, Total Protein 7.3, Albumin 4.5, Globulin 2.8, Albumin/Globulin Ratio 1.6, Lipase 90 10/27/24 08:22: SARS-CoV-2 (PCR) Not detected, Influenza A Untype (PCR) Not detected, Influenza Type B (PCR) Not detected 10/27/24 08:02 10/27/24 08:02 Orders (Tests/Meds): ED MEDICATIONS Discontinued Medications Generic Name Dose Route Start Last Admin Trade Name Freq PRN Reason Stop Dose Admin Acetaminophen 1,000 mg 10/27/24 08:19 10/27/24 08:20 Acetaminophen 500mg Tab PO 10/27/24 08:20 Not Given ONCE ONE Lactated Ringer's 1,000 mls @ 999 mls/hr 10/27/24 08:15 10/27/24 08:30 Lactated Ringer's 1000 Ml Bag IV 10/27/24 09:15 999 mls/hr .Q1H1M ONE Administration Ketorolac Tromethamine 30 mg 10/27/24 08:19 10/27/24 08:30 Ketorolac 30mg/Ml Vial IV 10/27/24 08:20 30 mg ONCE ONE Administration Ondansetron HCl 4 mg 10/27/24 08:20 10/27/24 08:31 Ondansetron 4mg/2ml Vial IV 10/27/24 08:21 4 mg ONCE ONE Administration ORDERS Category Date Time Status CBC w/Auto Diff [Complete Blood Count Auto Diff] Stat Lab 10/27/24 08:02 Completed CMP [Comprehensive Metabolic Panel] Stat Lab 10/27/24 08:02 Completed Lipase Stat Lab 10/27/24 08:02 Completed Rapid PCR Covid and Flu A/B Stat Lab 10/27/24 08:22 Completed Medical Decision Narrative: In summary patient is a 43-year-old male with past medical history described above who presents emergency department for evaluation of abdominal discomfort and diarrhea. Patient is hemodynamically stable nontoxic-appearing upon arrival, afebrile. Differential diagnosis includes gastroenteritis, pancreatitis, among others. Workup will be conducted with hematologic labs, viral swab. No dysuria so urinalysis will be deferred. Patient has a nonfocal abdominal exam and imaging was considered and will be deferred. Initial inventions include crystalloid bolus, Zofran, Toradol. Initial work reviewed by me, hematologic labs are nonactionable no JONH or critical electrolyte O'Tasneem no elevated lipase no significant leukocytosis. Viral swab negative. Patient was ready to leave upon repeat evaluation, I feel that essentially all emergent pathology has been ruled out patient is appropriate for outpatient management at this time will be discharged with a course of Zofran and a work excuse. Critical Care Critical Care Time Critical Care Time: No
[2024-10-27 08:21] LABS: Basophils % 0.5 % (0.1-2.0); Eosinophils % 0.7 % (0.1-12.0); Hematocrit 44.8 % (42.0-52.0); Hemoglobin 15.2 g/dL (14.1-18.0); Lymphocytes # 1.5 K/mm3 (0.7-4.5); Lymphocytes % 25.1 % (10-50); Mean Corpuscular HGB Conc 33.9 g/dL (31.8-35.4); Mean Corpuscular Hemoglobin 31.7 pg (27.0-31.2); Mean Corpuscular Volume 93.3 fl (80-94); Mean Platelet Volume 9.6 fl (7.4-10.4); Monocytes # 0.5 K/mm3 (0.1-1.0); Monocytes % 8.2 % (1.7-9.3); Neutrophils # 3.8 K/mm3 (1.8-7.8); Neutrophils % 65.3 % (37.0-80.0); Platelet Count 299 K/mm3 (142-424); Red Cell Distribution Width 12.1 % (11.5-17.5); White Blood Count 5.8 K/mm3 (4.8-10.8)
--- NOTE | 2024-10-27 08:24 | PC.NURSE ---
SWABBED PT FOR COVID/FLU AND SENT TO LAB, NO NEEDS AT THIS TIME AND CALL LIGHT IN REACH
[2024-10-27 08:30] LABS: Coronavirus 19, PCR Not Detected (NotDetected); Influenza A, PCR Not Detected (NotDetected); Influenza B, PCR Not Detected (NotDetected)
[2024-10-27] MEDS: LACTATED RINGERS 1000ML 1,000 ML 999 ML IV (08:30)
[2024-10-27] MEDS: KETOROLAC 30MG/ML VIAL 30 MG IV (08:30)
[2024-10-27] MEDS: ONDANSETRON 4MG/2ML VIAL 4 MG IV (08:31)
[2024-10-27 08:39] LABS: Anion Gap 10.9 mEq/L (5-15); Creatinine Clearance Estimated 140 mL/min (50-200); Estimated Glomerular Filt Rate 91 ml/min (>60); GFR (African American) 110 ML/MIN (>60)
[2024-10-27 08:57] LABS: Albumin/Globulin Ratio 1.6 (1.1-1.8); Globulin 2.8 g/dL (1.3-3.2)
--- NOTE | 2024-10-27 09:48 | PC.NURSE ---
ROUNDED ON THE PT. THE PT VOICES THAT HE DOES NOT NEED ANYTHING AT THIS TIME. CALL LIGHT IS WITHIN REACH OF THE PT.
--- NOTE | 2024-10-27 10:08 | PC.NURSE ---
Per Michelle in lab cmp did not run so they are rerunning, will be 15 minutes
[2024-10-27 10:14] VITALS: BP 141/103; PULSE 94; O2SAT 95
--- NOTE | 2024-10-27 10:15 | PC.NURSE ---
ROUNDED ON THE PT. THE PT VOICES THAT HE DOES NOT NEED ANYTHING AT THIS TIME. CALL LIGHT IS WITHIN REACH OF THE PT.
[2024-10-27 10:18] LABS: Alanine Aminotransferase 27 U/L (12-78); Albumin Level 4.5 g/dl (3.5-5.0); Alkaline Phosphatase 62 U/L (38-126); Aspartate Amino Transferase 27 U/L (17-59); Bilirubin,Total 0.4 mg/dl (0.2-1.3); Blood Urea Nitrogen 15 mg/dl (9-20); Calcium 9.1 mg/dl (8.4-10.2); Carbon Dioxide 18 mmol/L (22.0-30.0); Chloride 110 mmol/L (98-107); Glucose 100 mg/dl (74-100); Lipase 90 U/L (23-300); Sodium 139 mmol/L (136-145); Total Protein,Serum 7.3 g/dl (6.3-8.2)
[2024-10-27 11:38] VITALS: BP 137/95; PULSE 91; RESP 16; TEMP 36.8; O2SAT 98
== END 2024-10-27 11:40 | disposition home or self-care (01) ==
PROVIDERS: Emergency Provider Emergency Medicine; PCP Family Medicine
DX: B34.9 Viral infection, unspecified (principal); R10.9 Unspecified abdominal pain; R19.7 Diarrhea, unspecified; F17.210 Nicotine dependence, cigarettes, uncomplicated
CPT/HCPCS: 80053; 83690; 85025; 87636; 96361; 96374; 96375; 99283; J1885; J2405; J7120

== ENCOUNTER 2024-12-28 13:41 | Emergency (ER) | payer SELFPAY ==
[2024-12-28 13:49] VITALS: BP 154/81; PULSE 100; RESP 18; TEMP 36.6; O2SAT 97; BMI 27.0
--- NOTE | 2024-12-28 13:55 | ED_ITS ---
<Statement entered by Arnoldo Oliveira MD - 12/29/24 21:46> I was consulted by the JOSE, and we discussed the complexity of the problems being addressed. I approved the treatment and management plan for this patient's care in the emergency department, thus performing a substantive portion of the medical decision making. Arnoldo Oliveira MD, MISAEL, FACEP Discharge Plan Disposition Patient Disposition: Home, Self-Care Condition: Good Prescriptions Prescriptions: New methocarbamol 750 mg tablet 750 mg PO Q6H PRN (Reason: muscle spasm) Qty: 20 0RF prednisone 50 mg tablet 50 mg PO DAILY 5 Days Qty: 5 0RF lidocaine 5 % adhesive patch,medicated 1 patch topical DAILY Qty: 30 0RF Rx Instructions: leave on most painful area for up to 12 hrs No Action Trelegy Ellipta 100-62.5-25 mcg Blister With Device 1 inh INHALATION DAILY Referrals Follow up/Referrals: Mark Echols MD [Primary Care Provider] - See instructions Activity Restrictions/Add. Instructions Additional Instructions/Restrictions: Please follow-up with your PCP within 48 hours for recheck. You likely need an MRI as an outpatient. If you have any new or worsening signs or symptoms follow-up with your PCP sooner or return to the ER as needed. Clinical Impressions Clinical Impression: Acute low back pain with sciatica Qualifiers: Back pain laterality: left Sciatica laterality: sciatica of left side Qualified Code(s): M54.42 - Lumbago with sciatica, left side Stand Alone Forms Stand Alone Forms: Work/School Release Instructions Patient Instructions: DI for Back Pain With Sciatica Print Language Print Language: Greek Discharge ED Provider: Arnoldo Oliveira General Adult HPI General Chief complaint: Back Pain/Injury Stated complaint: Left side pain from lower back-foot Time Seen by Provider: 12/28/24 13:55 Mode of Arrival: Ambulatory Source of Information: Patient Description of Symptoms (Recalled from ER Triage Doc. by RN): pt c/o lower L back pain that radiates distal to his knee. pt reports the pain is 10/10 and sharp/shootins. pt denies any injury. pt has not taken anything for the pain today. pt states it came on suddenly last night. History of Present Illness HPI narrative: Patient presents for evaluation of left low back pain. Patient states that he for started having some low back pain that started on Friday. It hurt for a little while but went away and patient had no recurrence. The same thing happened yesterday but it seemed to be more intense. Then today when patient got out of bed he had back pain that has been present all day but the pain started radiating down his right leg. He denies any trauma or known injury. He has no known history of spine or disc disease. He denies any loss of motor or sensory loss of bowel or bladder function or saddle anesthesia. He states the pain is sharp and stabbing and radiates from his left low back down his right leg to about the knee. He denies any chest pain shortness of breath fever chills hemoptysis hematochezia melena nausea vomit diarrhea. Related Data Home Medications ?Medication ?Instructions ?Recorded ?Confirmed fluticasone fur. 100 mcg-umeclid 1 inh inhalation DAILY 02/05/24 12/28/24 62.5 mcg-vilant 25 mcg inhalat.powder (Trelegy Ellipta) Previous Rx's ?Medication ?Instructions ?Recorded lidocaine 5 % topical patch 1 patch topical DAILY #30 ea 12/28/24 methocarbamol 750 mg tablet 750 mg PO Q6H PRN muscle spasm #20 12/28/24 tabs prednisone 50 mg tablet 50 mg PO DAILY 5 days #5 tabs 12/28/24 Allergies Allergy/AdvReac Type Severity Reaction Status Date / Time No Known Allergies Allergy Verified 10/27/24 08:25 [facility] Disclaimer: The information contained in this section may have been updated after the patient was seen, as this information can be updated by other users. 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: No Exposed to someone with COVID-19 in past 14 days?: No Do you have a sore throat?: No Do you have a cough?: No Do you have any weakness?: No Do you have any diarrhea?: No Are you experiencing any unusual bleeding?: No Do you have any muscle aches/pain?: Yes Do you have any abdominal pain?: No Are you experiencing loss of taste or smell?: No Other 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 Have you received the Flu Vaccine for this season: No Have you received the Pneumonia Vaccine: No ROS Obtained: Yes Systems reviewed as appropriate & no additional complaints except as documented Physical Exam General General appearance: alert and in no apparent distress Respiratory Respiratory exam: Present normal lung sounds bilaterally Cardiovascular Cardiovascular exam: Present regular rate Neurological Exam Neurological exam: Present alert and oriented X3 Medical Decision Making Medical Records Medical records reviewed: Yes I reviewed the patient's medical records. Screening: Per USPSTF and CDC recommendations, given the prevalence of disease in our region, it is our hospital?s policy to screen for HIV and viral Hepatitis for all patients aged 18 and over and those with ongoing risk factors. Keny Inquiry Pt receiving controlled substance: No Vital Signs: 12/28/24 13:49 12/28/24 14:30 12/28/24 14:57 Temperature 97.8 F Temperature Source Oral Pulse Rate 68 Pulse Rate [Left] 100 H Respiratory Rate 18 Blood Pressure 134/87 153/99 H Blood Pressure [Right Arm] 154/81 H Blood Pressure Mean [Right Arm] 105 Blood Pressure Source [Right Arm] Automatic Cuff Blood Pressure Position [Right Arm] Sitting 02 Sat by Pulse Oximetry 97 96 96 Oxygen Delivery Method Room Air 12/28/24 16:27 Temperature 98.6 F Temperature Source Pulse Rate 82 Pulse Rate [Left] Respiratory Rate 18 Blood Pressure 153/99 H Blood Pressure [Right Arm] Blood Pressure Mean [Right Arm] Blood Pressure Source [Right Arm] Blood Pressure Position [Right Arm] 02 Sat by Pulse Oximetry Oxygen Delivery Method Lab Data Lab results reviewed: Yes I reviewed the patient's lab results. Lab Results 12/28/24 14:37: WBC 7.4, RBC 4.98, Hgb 16.1, Hct 46.3, MCV 93.0, MCH 32.3 H, MCHC 34.8, RDW 12.4, Plt Count 303, MPV 9.2, Neut % (Auto) 59.8, Lymph % (Auto) 28.9, [place] % (Auto) 8.7, Eos % (Auto) 1.6, Baso % (Auto) 0.7, Neut # (Auto) 4.4, Lymph # (Auto) 2.1, [place] # (Auto) 0.6, Eos # (Auto) 0.1, Baso # (Auto) 0.1, ESR 1, Sodium 138, Potassium 4.0, Chloride 107, Carbon Dioxide 26, Anion Gap 9.0, BUN 16, Creatinine 0.90, Estimated Creat Clear 135, Estimated GFR 91, Est GFR ( Amer) 110, Glucose 97, Calcium 9.2, Total Bilirubin 0.4, AST 31, ALT 36, Alkaline Phosphatase 64, Total Creatine Kinase 103, C-Reactive Protein 1.2, Total Protein 7.3, Albumin 4.5, Globulin 2.8, Albumin/Globulin Ratio 1.6 12/28/24 14:37 12/28/24 14:37 Orders (Tests/Meds): ED MEDICATIONS Discontinued Medications Generic Name Dose Route Start Last Admin Trade Name Chemoq PRN Reason Stop Dose Admin Acetaminophen 1,000 mg 12/28/24 14:17 12/28/24 14:42 Acetaminophen 500mg Tab PO 12/28/24 14:18 1,000 mg ONCE ONE Administration Dexamethasone Sodium Phosphate 10 mg 12/28/24 14:17 12/28/24 14:42 Dexamethasone 4mg/Ml 5ml Mdv IV 12/28/24 14:18 10 mg ONCE ONE Administration Diphenhydramine HCl 50 mg 12/28/24 14:17 12/28/24 14:43 Diphenhydramine 50mg/Ml Vial IV 12/28/24 14:18 50 mg ONCE ONE Administration Ketorolac Tromethamine 15 mg 12/28/24 14:17 12/28/24 14:44 Ketorolac 30mg/Ml Vial IV 12/28/24 14:18 15 mg ONCE ONE Administration Lidocaine 1 each 12/28/24 14:17 12/28/24 14:44 Lidocaine 5% Transdermal Patch TD 12/28/24 14:18 1 each ONCE ONE Administration Methocarbamol 500 mg 12/28/24 14:17 12/28/24 14:44 Methocarbamol 500mg Tablet PO 12/28/24 14:18 500 mg ONCE ONE Administration ORDERS Category Date Time Status CBC w/Auto Diff [Complete Blood Count Auto Diff] Stat Lab 12/28/24 14:37 Completed CK [Creatine Kinase] Stat Lab 12/28/24 14:37 Completed CMP [Comprehensive Metabolic Panel] Stat Lab 12/28/24 14:37 Completed CRP [C-Reactive Protein] Stat Lab 12/28/24 14:37 Completed ESR [Erythrocyte Sedimentation Rate] Stat Lab 12/28/24 14:37 Completed Medical Decision Narrative: In summary patient is a 44-year-old male who presents to the emergency department for evaluation of low back pain with sciatica on the left. Patient is hemodynamically stable upon arrival, afebrile. Physical exam is remarkable for tenderness to palpation in the left SI joint posterior superior iliac spine and paraspinous musculature. He has no midline spinal tenderness. He has full range of motion of all 4 extremities he is neurovascularly intact in all 4 extremities. He has positive pulses are strong and brisk in all 4 extremities. Patient is able to ambulate in the ER.. Differential diagnosis includes sciatica versus degenerative disc disease. Initial workup will be conducted with hematologic labs. I did consider imaging however patient has no red flags suggestive of central neurologic impairment thus deferred. Initial interventions include Tylenol Decadron Benadryl Lidoderm Toradol Robaxin. Initial workup reviewed by me and his hematologic labs are nonactionable.. Upon repeat evaluation patient reports significant improvement in his pain and again is amatory and neurovascular intact in all 4 extremities prior to discharge. Given this patient is appropriate for discharge with prescription for prednisone Lidoderm and Robaxin and close follow-up with his PCP for further workup of his sciatica with possibly an MRI if he has continued symptoms. Patient given strict return precautions. Patient verbalized understanding and agreement. Critical Care Critical Care Time Critical Care Time: No
[2024-12-28 14:30] VITALS: BP 134/87; PULSE 68; O2SAT 96
[2024-12-28] MEDS: DEXAMETHASONE 4MG/ML 5ML MDV 10 MG IV (14:42)
[2024-12-28] MEDS: ACETAMINOPHEN 500MG TAB 1000 MG PO (14:42)
[2024-12-28] MEDS: diphenhydrAMINE 50MG/ML VIAL 50 MG IV (14:43)
[2024-12-28] MEDS: LIDOCAINE 5% TRANSDERMAL PATCH 1 EACH TD (14:44)
[2024-12-28] MEDS: KETOROLAC 30MG/ML VIAL 15 MG IV (14:44)
[2024-12-28] MEDS: METHOCARBAMOL 500MG TABLET 500 MG PO (14:44)
[2024-12-28 14:48] LABS: Basophils # 0.1 K/mm3 (0-0.2); Basophils % 0.7 % (0.1-2.0); Eosinophils # 0.1 Kmm3 (0.0-0.4); Eosinophils % 1.6 % (0.1-12.0); Hematocrit 46.3 % (42.0-52.0); Hemoglobin 16.1 g/dL (14.1-18.0); Immature Granulocytes # 0.02 10^3uL; Immature Granulocytes % 0.3 %; Lymphocytes # 2.1 K/mm3 (0.7-4.5); Lymphocytes % 28.9 % (10-50); Mean Corpuscular HGB Conc 34.8 g/dL (31.8-35.4); Mean Corpuscular Hemoglobin 32.3 pg (27.0-31.2); Mean Platelet Volume 9.2 fl (7.4-10.4); Monocytes # 0.6 K/mm3 (0.1-1.0); Monocytes % 8.7 % (1.7-9.3); Neutrophils # 4.4 K/mm3 (1.8-7.8); Neutrophils % 59.8 % (37.0-80.0); Nucleated Red Blood Cells # 0 10^3/uL; Nucleated Red Blood Cells % 0 %; Platelet Count 303 K/mm3 (142-424); Red Blood Count 4.98 M/mm3 (4.60-6.20); Red Cell Distribution Width 12.4 % (11.5-17.5); Red Cell Distribution Width-SD 42.5 fL; White Blood Count 7.4 K/mm3 (4.8-10.8)
[2024-12-28 14:51] LABS: Albumin Level 4.5 g/dl (3.5-5.0); Chloride 107 mmol/L (98-107)
[2024-12-28 14:52] LABS: Sodium 138 mmol/L (136-145)
[2024-12-28 14:54] LABS: Alanine Aminotransferase 36 U/L (12-78); Albumin/Globulin Ratio 1.6 (1.1-1.8); Alkaline Phosphatase 64 U/L (38-126); Aspartate Amino Transferase 31 U/L (17-59); Bilirubin,Total 0.4 mg/dl (0.2-1.3); Carbon Dioxide 26 mmol/L (22.0-30.0); Globulin 2.8 g/dL (1.3-3.2); Total Protein,Serum 7.3 g/dl (6.3-8.2)
[2024-12-28 14:55] LABS: Calcium 9.2 mg/dl (8.4-10.2); Creatine Kinase 103 U/L (55-170); Glucose 97 mg/dl (74-100)
[2024-12-28 14:57] VITALS: BP 153/99; O2SAT 96
[2024-12-28 14:59] LABS: Blood Urea Nitrogen 16 mg/dl (9-20)
[2024-12-28 15:00] LABS: C-Reactive Protein 1.2 mg/L (0-4); Creatinine Clearance Estimated 135 mL/min (50-200); Estimated Glomerular Filt Rate 91 ml/min (>60); GFR (African American) 110 ML/MIN (>60)
[2024-12-28 15:14] LABS: Erythrocyte Sedimentation Rate 1 mm/hr (0-15)
[2024-12-28 16:27] VITALS: BP 153/99; PULSE 82; RESP 18; TEMP 37; O2SAT 95
== END 2024-12-28 16:28 | disposition home or self-care (01) ==
PROVIDERS: Physician Assistant; Emergency Provider Student in an Organized Health Care Education/Training Program; PCP Family Medicine
DX: M54.42 Lumbago with sciatica, left side (principal)
CPT/HCPCS: 80053; 82550; 85025; 85651; 86140; 96374; 96375; 99284; J1100; J1200; J1885

== ENCOUNTER 2025-01-01 11:01 | Emergency (ER) | payer SELFPAY ==
[2025-01-01 11:10] VITALS: BP 162/96; PULSE 112; O2SAT 95
[2025-01-01 11:12] VITALS: BP 162/96; PULSE 108; RESP 16; TEMP 36.9; O2SAT 95; BMI 27.0
--- NOTE | 2025-01-01 11:35 | XR_ITS ---
PROCEDURE INFORMATION: Exam: XR Pelvis Exam date and time: 01/01/2025 11:33 AM Age: 44 years old Clinical indication: Hip pain; Left hip; Additional info: Left hip/si joint pain TECHNIQUE: Imaging protocol: Radiologic exam of the pelvis. Views: 1 or 2 view. COMPARISON: CT ABDOMEN PELVIS WO CON 05/14/2021 12:28 PM FINDINGS: Bones/joints: No visible fracture or dislocation. Sacroiliac joints are congruent. Soft tissues: Unremarkable. IMPRESSION: No visible fracture or dislocation.
[2025-01-01] MEDS: DEXAMETHASONE 4MG TABLET 10 MG PO (11:42)
[2025-01-01] MEDS: METHOCARBAMOL 500MG TABLET 1000 MG PO (11:42)
[2025-01-01] MEDS: IBUPROFEN 800 MG TABLET PO (11:42)
[2025-01-01] MEDS: ACETAMINOPHEN 500MG TAB 1000 MG PO (11:42)
[2025-01-01] MEDS: LIDOCAINE 5% TRANSDERMAL PATCH 1 EACH TD (11:43)
[2025-01-01 12:00] VITALS: BP 189/115; PULSE 94; O2SAT 93
--- NOTE | 2025-01-01 12:17 | ED_ITS ---
Discharge Plan Disposition Patient Disposition: Home, Self-Care Condition: Good Prescriptions Prescriptions: New lidocaine 5 % ointment 1 applic topical DAILY PRN (Reason: skin irritation) Qty: 30 0RF No Action Trelegy Ellipta 100-62.5-25 mcg Blister With Device 1 inh INHALATION DAILY methocarbamol 750 mg tablet 750 mg PO Q6H PRN (Reason: muscle spasm) Qty: 20 0RF prednisone 50 mg tablet 50 mg PO DAILY 5 Days Qty: 5 0RF lidocaine 5 % adhesive patch,medicated 1 patch topical DAILY Qty: 30 0RF Rx Instructions: leave on most painful area for up to 12 hrs Referrals Follow up/Referrals: Mark Echols MD [Primary Care Provider] - See instructions Activity Restrictions/Add. Instructions Additional Instructions/Restrictions: Continue taking the Robaxin every 6 hours. Additionally, take Tylenol and ibuprofen every 6 hours for the next 4 days. Apply [id number] pain relief patches which can be found at the drugstore. If it is not cost prohibitive, please continuous pickling line pickler the lidocaine ointment from the pharmacy. You will need to see a primary care provider to have physical therapy arranged. See the website below for Sciatica exercises: [email or web address] Clinical Impressions Clinical Impression: Sciatica of left side Instructions Patient Instructions: Sciatica (Alternative Therapy), DI for Sciatica Print Language Print Language: Yakut Discharge ED Provider: Alessandra Slade General Adult HPI General Chief complaint: PAIN Stated complaint: Left leg pain Time Seen by Provider: 01/01/25 11:20 Mode of Arrival: Wheelchair Source of Information: Patient Description of Symptoms (Recalled from ER Triage Doc. by RN): patient states his left hip is hurting down to his left leg 06/03 pain History of Present Illness HPI narrative: Beau Lieberman is a 44 y/o male presenting with left leg pain. Patient reports being seen in our emergency department on December 28 for the same complaint. He states his pain has not gotten any better. Patient complains of pain in his left buttock, hip that radiates down his left leg. He is now also feeling it significantly in his left calf. He has difficulty finding positions that are comfortable to sit or lie in. Patient denies fevers or chills. He denies back pain, bowel or bladder incontinence, numbness. Patient currently does not have insurance and is self-pay. He reports not being able to continuous pickling line pickler lidocaine patches due to the cost. He states he was discharged from the ER a few days prior with muscle relaxers. He has been taking these. He has not been taking Tylenol and ibuprofen consistently. Related Data Home Medications ?Medication ?Instructions ?Recorded ?Confirmed fluticasone fur. 100 mcg-umeclid 1 inh inhalation DAILY 02/05/24 12/28/24 62.5 mcg-vilant 25 mcg inhalat.powder (Trelegy Ellipta) Previous Rx's ?Medication ?Instructions ?Recorded lidocaine 5 % topical patch 1 patch topical DAILY #30 ea 12/28/24 methocarbamol 750 mg tablet 750 mg PO Q6H PRN muscle spasm #20 12/28/24 tabs prednisone 50 mg tablet 50 mg PO DAILY 5 days #5 tabs 12/28/24 lidocaine 5 % topical ointment 1 applic topical DAILY PRN skin 01/01/25 irritation #30 grams Allergies Allergy/AdvReac Type Severity Reaction Status Date / Time No Known Allergies Allergy Verified 10/27/24 08:25 [facility] Disclaimer: The information contained in this section may have been updated after the patient was seen, as this information can be updated by other users. 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 (Reviewed 08/03/22 @ 12:27 by Ninoska Elder ([facility]), SENIOR NUCLEAR MEDICINE TECHNOLOGIST) COPD (chronic obstructive pulmonary disease) Surgical History (Reviewed 08/03/22 @ 12:27 by Ninoska Elder ([facility]), SENIOR NUCLEAR MEDICINE TECHNOLOGIST) History of cholecystectomy Social History Smoking Status: Current every day smoker tobacco type: cigarettes packs per day: 1 second hand exposure: Yes alcohol intake: never current occupational status: other Travel in the last 8 weeks?: None household members: spouse and children housing: house Have you lived/traveled outside US in past 30 days?: No Contact w/someone who lives/traveled outside US past 30 days?: No Exposure to someone with infectious disease in past 14 days?: No Do you have a fever (greater than 100.4 F or 38 C)?: No Have you tested positive for COVID-19?: No Exposed to someone with COVID-19 in past 14 days?: No Do you have a sore throat?: No Do you have a cough?: No Do you have any weakness?: No Do you have any diarrhea?: No Are you experiencing any unusual bleeding?: No Do you have any muscle aches/pain?: No Do you have any abdominal pain?: No Are you experiencing loss of taste or smell?: No Other 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 Have you received the Flu Vaccine for this season: No Have you received the Pneumonia Vaccine: No ROS Obtained: Yes All systems reviewed & no additional complaints except as documented Physical Exam General General appearance: alert and in distress Respiratory Respiratory exam: Absent respiratory distress or accessory muscle use Cardiovascular Cardiovascular exam: Present regular rate, normal rhythm and normal heart sounds Extremities Exam Extremities exam: Present tenderness (Left SI joint, left glute) and other (Positive straight leg raise on left); Absent full ROM, edema, joint swelling or calf tenderness Neurological Exam Neurological exam: Present alert and normal gait; Absent motor sensory deficit Medical Decision Making Medical Records Medical records reviewed: Yes I reviewed the patient's medical records. Screening: Per USPSTF and CDC recommendations, given the prevalence of disease in our region, it is our hospital?s policy to screen for HIV and viral Hepatitis for all patients aged 18 and over and those with ongoing risk factors. Keny Inquiry Pt receiving controlled substance: No Vital Signs: 01/01/25 11:10 01/01/25 11:12 01/01/25 12:00 Temperature 98.4 F Temperature Source Oral Pulse Rate 112 H 94 H Pulse Rate [Right Radial] 108 H Respiratory Rate 16 Blood Pressure 162/96 H 189/115 H Blood Pressure [Right Arm] 162/96 H Blood Pressure Mean [Right Arm] 118 Blood Pressure Source Blood Pressure Source [Right Arm] Automatic Cuff Blood Pressure Position Blood Pressure Position [Right Arm] Sitting 02 Sat by Pulse Oximetry 95 95 93 L Oxygen Delivery Method Room Air Room Air Room Air 01/01/25 12:30 Temperature 98.1 F Temperature Source Oral Pulse Rate 98 H Pulse Rate [Right Radial] Respiratory Rate 15 Blood Pressure 158/92 H Blood Pressure [Right Arm] Blood Pressure Mean [Right Arm] Blood Pressure Source Automatic Cuff Blood Pressure Source [Right Arm] Blood Pressure Position Sitting Blood Pressure Position [Right Arm] 02 Sat by Pulse Oximetry Oxygen Delivery Method Room Air Orders (Tests/Meds): ED MEDICATIONS Discontinued Medications Generic Name Dose Route Start Last Admin Trade Name Freq PRN Reason Stop Dose Admin Acetaminophen 1,000 mg 01/01/25 11:35 01/01/25 11:42 Acetaminophen 500mg Tab PO 01/01/25 11:36 1,000 mg ONCE ONE Administration Dexamethasone 10 mg 01/01/25 11:35 01/01/25 11:42 Dexamethasone 4mg Tablet PO 01/01/25 11:36 10 mg ONCE ONE Administration Ibuprofen 800 mg 01/01/25 11:36 01/01/25 11:42 Ibuprofen 800 Mg Tablet PO 01/01/25 11:37 800 mg ONCE ONE Administration Lidocaine 1 each 01/01/25 11:45 01/01/25 11:43 Lidocaine 5% Transdermal Patch TD 01/31/25 11:44 1 each Q24H LINDA Administration Methocarbamol 1,000 mg 01/01/25 11:37 01/01/25 11:42 Methocarbamol 500mg Tablet PO 01/01/25 11:38 1,000 mg ONCE ONE Administration ORDERS Category Date Time Status Pelvis XR 1-2 views [XR pelvis 1-2V] Stat Exams 01/01/25 11:35 Completed Medical Decision Narrative: In summary, this is a 44-year-old male presenting with left leg pain. Differential diagnosis includes but is not limited to, sciatica, sacroiliitis, muscular strain, DVT, among others. Patient's exam findings most consistent with sciatica. We had a lengthy discussion with regards to how sciatica is managed. In the absence of focal neurologic deficits, trauma, isolated limb swelling with risk factors, he is less likely to have other concerning diagnoses. We discussed multimodal pain control with consistently taking muscle relaxers, using a topical/patch version of lidocaine that can be purchased [id number] due to his insurance situation, scheduled Tylenol and ibuprofen as well as physical therapy. Will evaluate with the pelvis XR to ensure no abnormalities in the bone structure that may affect his symptoms. The remaining exam of his leg was unremarkable and no calf swelling was present or focal tenderness in the remaining leg. Patient did have a positive straight leg test on the left. Patient able to ambulate. Pelvic XR was reviewed by me negative for fracture, malalignment or evidence of ring disruption. Patient treated with Tylenol, ibuprofen, Robaxin, lidocaine patch. New prescription was sent for lidocaine cream in case it is cheaper for the patient. If it is not he was advised to select the highest percentage of lidocaine and [id number] medications for topical application. Patient was also advised to see his primary care provider for a referral to physical therapy. In the interim, patient was provided physical therapy resource online that demonstrates gentle stretching techniques for sciatica. Patient discharged in stable condition. Alessandra Slade MD Critical Care Critical Care Time Critical Care Time: No
[2025-01-01 12:30] VITALS: BP 158/92; PULSE 98; RESP 15; TEMP 36.7; O2SAT 99
== END 2025-01-01 12:31 | disposition home or self-care (01) ==
PROVIDERS: Emergency Provider Student in an Organized Health Care Education/Training Program; PCP Family Medicine
DX: M54.32 Sciatica, left side (principal); M79.605 Pain in left leg
CPT/HCPCS: 72170; 99283; J8540

== ENCOUNTER 2025-02-02 12:06 | Outpatient (CLI) | payer OTHER, SELFPAY ==
--- OUTSIDE RECORDS SUMMARY | 2025-01-14 11:30 | XMS_ITS ---
Author Organization [facility] Address [address] [place] [id number] Care Team Providers Care Play Reader Name Role Phone Mark Echols Primary Care Provider Allergies No Known Allergies REASON FOR VISIT check up on trelegy Medications Medication SIG (Take, Route, Frequency, Duration) Notes Start Date End Date Status Trelegy Ellipta 200-62.5-25 MCG/ACT 1 puff(s) inhaled once a day Not-Taking Promethazine-DM 6.25-15 MG/5ML 5 ml as needed Orally every 6 hrs prn 05/10/2024 Not-Taking Dicyclomine HCl 10 MG 1 cap(s) orally 4 times a day 12/11/2021 Not-Taking dexAMETHasone 2 MG 1 tablet Orally ever y 12 hrs for 5 days 05/10/2024 Not-Taking Mucinex DM 30-600 MG 1 tablet as needed Orally every 12 hrs for 10 days 05/10/2024 Not-Taking Albuterol Sulfate HFA 108 (90 Base) MCG/ACT 2 puffs qid Inhalation qid for 30 days 05/10/2024 Not-Taking Cefuroxime Axetil 500 MG 1 tablet Orally every 12 hrs for 7 day(s) 05/10/2024 Not-Taking Meloxicam 15 MG 1 tablet Orally Once a day for 30 days 01/14/2025 Active Albuterol Sulfate HFA 108 (90 Base) MCG/ACT 2 puff(s) inhaled every 6 hours Not-Taking Cyclobenzaprine HCl 5 MG 1 tablet Orally three times a day as needed Not-Taking Wixela Inhub 250-50 MCG/ACT 1 puff Inhal ation Twice a day 01/14/2025 Active Problems Problem Type SNOMED Code ICD Code Onset Dates Problem Status W/U Status Risk Notes Problem [id number] Acute left-sided low back pain with left-sided sciatica (M54.42) Active confirmed Vital Signs Blood pressure systolic 130 mm Hg 01/15/20 25 Blood pressure diastolic 88 mm Hg 025 Heart Rate 91 /min 01/14/2025 Height 72 in 01/14/2025 Weight 201.8 lbs 01/14/2025 BMI 27.37 kg/m2 01/14/2025 Encounters Encounter Location Date Provider Diagnosis [facility] [address] [place] [id number] 01/14/2025 Mark Echols Chronic obstructive pulmonary disease, unspecified COPD type J44.9 and Acute left-sided low back pain with left-sided sciatica M54.42 Assessments Encounter Date Diagnosis (ICD Code) Assessment Notes Treatment Notes Treatment Clinical Notes Section Notes 01/14/2025 Chronic obstructive pulmonary disease, unspecified COPD type (ICD-10 - J44.9) 01/14/2025 Acute left-sided low back pain with left-sided sciatica (ICD-10 - M54.42) Plan Of Treatment Medication Medication Name Sig Start Date Stop Date Notes Meloxicam 15 MG 1 tablet Orally Once a day for 30 days 01/14/2025 Trelegy Ellipta 100-62.5-25 MCG/ACT 1 puff Inhalation Once a day 12/26/2023 Wixela Inhub 250-50 MCG/ACT 1 puff Inhalation Twice a day 01/14/2025 Next Appt Details Follow Up: via phone to dannielle olson progress, Reason: Provider Name:Mark Easley ry, 02/02/2025 11:45:00 AM, [address], [address], [place], [phone], Progress Notes * Beau BALESDOB:[birth year] (44 yo M)Acc No.[id number]:01/14/2025 Progress Notes Patient: Beau BRYANT Provider: Chris Echols M.D. :1980 A ge:44 Y S ex:Male Date:01/14/2025 Address:[place], [id number] Subjective: * Chief Complaints: * 1 . Check up on trelegy. * HPI: H PI: 44 year old male presents with c/o Patient is here today for?Pt is here today for a check up on Trelegy. Pt sts he is also here to discuss a pinched nerve in his back. He was seen in the ER at [facility] 3 times in the past 2 weeks and was told he needed an MRI. * ROS: D ERMATOLOGY: no R tamara. [...] removal 10/05/15. * Hospitalization/Major Diagno stic Procedure: H -chest pain 08/04/17, [facility]-right elbow pain and swelling 09/04/17. * Family [...] , Determination:, occasional. * Medications: T aking Trelegy Ellipta 100-62.5-25 MCG/ACT Aerosol Powder Breath Activated 1 puff Inhalation Once a day , Not-Taking Albuterol Sulfate HFA 108 (90 Base) MCG/ACT Aerosol Solution 2 puff(s) inhaled every 6 hours , Not-Taking Cyclobenzaprine HCl 5 MG Tablet 1 tablet Orally three times a day as needed , Not-Taking Albuterol Sulfate HFA 108 (90 Base) MCG/ACT Aerosol Solution 2 puffs qid Inhalation qid , Not- Taking Cefuroxime Axetil 500 MG Tablet 1 tablet Orally every 12 hrs , Not-Taking dexAMETHasone 2 MG Tablet 1 tablet Orally every 12 hrs , Not-Taking Mucinex DM 30-600 MG Tablet Extended Release 12 Hour 1 tablet as needed Orally every 12 hrs , Not-Taking Promethazine-DM 6.25-15 MG/5ML Syrup 5 ml as needed Orally every 6 hrs prn , Not-Taking Dicyclomine HCl 10 MG Capsule 1 cap(s) orally 4 times a day , Not- Taking Trelegy Ellipta 200-62.5-25 MCG/ACT Aerosol Powder Breath Activated 1 puff(s) inhaled once a day , Discontinued Omeprazole 40 MG Capsule Delayed Release Take 1 capsule by mouth once daily for 90 days , Discontinued Montelukast Sodium 10 MG Tablet Take 1 tablet by mouth once daily for 90 days , Discontinued Sildenafil Citrate 20 MG Tablet TAKE 1 TO 2 TABLETS BY MOUTH ONCE DAILY NEEDED FOR 7 DAYS , Medication List reviewed and reconciled with the patient * Allergies: N .K.D.A. Objective: * Vitals: W t: 201.8, Temp: 97.8, BP: 130/88, HR: 91, Nurse: nadia, Ht: 72, BMI:27.37. * Examination: G eneral Examination: General Appearance: N AD. Heart: R SR. Lungs: c lear to auscultation. L ower back: Straight leg raising test: positive at 45 degrees on left. Gait: stands and moves slowly due to pain. ? Assessment: * Assessment: 1. C hronic obstructive pulmonary disease, unspecified COPD type - J44.9 (Primary) ?2. A cute left-sided low back pain with left-sided sciatica - M54.42 Plan: * Treatment: 2. A cute left-sided low back pain with left-sided sciatica Start Meloxicam Tablet, 15 MG, 1 tablet, Orally, Once a day, 30 days, 30, Refills 0. * Follow Up: v ia phone to report progress * Billing Information: * Visit Code: 88977 Office Visit, Est Pt., Level 3. * Procedure Codes: * Electronic signature of Haley Echols MD on 02/02/2025 at 12:12 PM EDT Sign off status: Pending * Provider: Chris Echols M.D. Date: 0 01/14/2025 Generated for Jeremie pham/Claudia/eTransmitting on: 0 02/02/2025 12:12 PM EDT History and Physical Notes * HPI (History of Present Illness) Category Sub-Category Detail Notes Category Not es HPI Patient is here today for Pt is here today for a check up on Trelegy. Pt sts he is also here to discuss a pinched nerve in his back. He was seen in the ER at [facility] 3 times in the past 2 weeks and was told he needed an MRI Examination Category Sub-Category Detail Notes Category Not es General Examination Heart: RSR Lungs: clear to auscultatio n General Appearance: NAD Lower back Straight leg raising test: positive at 45 degrees on left Gait: stands and moves slo wly due to pain
--- OUTSIDE RECORDS SUMMARY | 2025-01-29 06:00 | XMS_ITS ---
Author Organization [facility] Address [address] [facility] [address] [facility] [address] [place] [phone] Care Team Providers Care Glass Cylinder Flanger Name Role Phone Mark Echols Primary Care Provider Allergies No Known Allergies REASON FOR VISIT hurt knee, pinched nerve Encounters Encounter Location Date Provider Diagnosis [facility] [address] [facility] [address] [place] [phone] 01/29/2025 Mark Echols Plan Of Treatment Next Appt Details Provider Name:Mark Easley ry, 02/02/2025 11:45:00 AM, [address], [address], [place] [phone], Progress Notes * Beau BALESDOB:[birth year] (44 yo M)Acc No.[id number]:01/29/2025 Progress Notes Patient: Beau BRYANT Provider: Chris Echols M.D. :1980 A ge:44 Y S ex:Male Date:01/29/2025 Address:[facility] [id number] Subjective: * Chief Complaints: * 1 . [...] Diagno stic Procedure: H [facility]-chest pain 08/04/17, [facility]-right elbow pain and swelling 09/04/17. * Family [...] * Vitals: Assessment: Plan: * Treatment: * Billing Information: * Visit Code: * Procedure Codes: * Electronic signature of Haley Echols MD on 02/02/2025 at 12:12 PM EDT Sign off status: Pending * Provider: Chris Echols M.D. Date: 0 01/29/2025 Generated for Jeremie pham/Claudia/Kirsty on: 0 02/02/2025 12:12 PM EDT
--- OUTSIDE RECORDS SUMMARY | 2025-02-02 12:12 | XMS_ITS | Patient Health Record ---
[facility] Address [address] [place] [id number] Care Team Providers Care Dairy Specialist Name Role Phone Mark Echols Primary Care Provider Cyndi Beavers Unavailable [phone] AtifTelma castañeda Unavailable [phone] Allergies No Known Allergies Results Component Value [...] - 38 plat 275 100 - 400 Reason For Referral No Information Medications Medication SIG (Take, Route, Frequency, Duration) Notes Start Date End Date Status Trelegy Ellipta 200-62.5-25 MCG/ACT 1 puff(s) inhaled once a day Active Nabumetone 750 MG 2 tabs Orally daily for 30 days 02/02/2025 Active Immunizations Vaccine Route Administration Date Status Comme nts COVID 19 Moderna Unknown 03/26/2021 Administered COVID 19 Moderna Unknown 04/24/2021 Administered Tetanus Tdap-Adacel (over 7yrs) IM Intramuscular 12/08/2013 Administered Tetanus Tdap-Adacel (over 7yrs) Unknown 01/23/2019 Administered Problems Problem Type SNOMED Code ICD Code Onset Dates Problem Status W/U Status Risk Notes Problem COPD - Chronic obstructive pulmonary disease (75585935) COPD [Chronic obstructive pulmonary disease] (496) Active confirmed Problem Allergic rhinitis (07389161) ALLERGIC RHINITIS NOS (477.9) Active confirmed Problem Asthma (984859382) Asthma (J45.909) Active confirmed Problem 168898026 COPD exacerbatio n (J44.1) Active confirmed Problem 973463894 Moderate persist ent asthma without complication (J45.40) Active confirmed Problem 66899546 Acute nasopharyngitis (J00) Active confirmed Problem 19759194 Chronic obstruct myles pulmonary disease, unspecified COPD type (J44.9) Active confirmed Problem 726646220 Gastroesophageal reflux disease, esophagitis presence not specified (K21.9) Active confirmed Problem 386251636 Erectile dysfunction, unspecified erectile dysfunction type (N52.9) Active confirmed Problem 828881890 Asthmatic bronchitis, mild intermittent, uncomplicated (J45.20) Active confirmed Problem 941240721 Acute left-sided low back pain with left-sided sciatica (M54.42) Active confirmed Problem 257691353 Seasonal allergi c rhinitis, unspecified allergic rhinitis trigger (J30.2) Active confirmed Problem 829796923 Tobacco use disorder (F17.200) Active confirmed Problem 968443496 Moderate persist ent asthmatic bronchitis with acute exacerbation (J45.41) Active confirmed Problem 622410367 Gastroesophageal reflux disease, unspecified whether esophagitis present (K21.9) Active confirmed Vital Signs Heart Rate 115 /min 02/02/2025 Blood pressure diastolic 80 mm Hg 02/02/2025 Height 72 in 02/02/2025 Blood pressure systolic 130 mm Hg 02/02/2025 Weight 200 lbs 02/02/2025 BMI 27.12 kg/m2 02/02/2025 Encounters Encounter Location Date Provider Diagnosis [facility] [address] [place], [place] [id number] 05/10/2024 Cyndi Beavers Bronchitis J40 [facility] [address] [place], [place] [id number] 01/14/2025 Mark Porcupine Chronic obstructive pulmonary disease, unspecified COPD type J44.9 and Acute left-sided low back pain with left-sided sciatica M54.42 [facility] [address] [place], [place] [id number] 02/02/2025 Mark Porcupine Acute left-sided low back pain with left-sided sciatica M54.42 and Pain, joint, knee, left M25.562 [facility] [address] [place], [place] [id number] 02/11/2024 Telma Castillo Chronic obstructive pulmonary disease, unspecified COPD type J44.9 [facility] [address] [place], [place] [id number] 03/23/2024 Mark Porcupine [facility] [address] [place], [place] [id number] 03/29/2024 Mark Porcupine [facility] [address] [place], [place] [id number] 05/12/2024 Mark Porcupine [facility] [address] [place], [place] [id number] 05/19/2024 Mark Porcupine [facility] [address] [place], [place] [id number] 06/03/2024 Mark Porcupine [facility] [address] [place], [place] [id number] 09/20/2024 Mark Porcupine [facility] [address] [place], [place] [id number] 10/01/2024 Mark Porcupine [facility] [address] [place], [place] [id number] 10/15/2024 Mark Porcupine Chronic obstructive pulmonary disease, unspecified COPD type J44.9 [facility] [address] [place], [place] [id number] 11/24/2024 Mark Porcupine [facility] [address] [place], [place] [id number] 12/20/2024 Mark Porcupine [facility] [address] [place], [place] [id number] 01/11/2025 Mark Porcupine [facility] [address] [place] [id number] 02/01/2025 Markjt Echols Chronic obstructive pulmonary disease, unspecified COPD type J44.9 Assessments Encounter Date Diagnosis (ICD Code) Assessment Notes Treatment Notes Treatment Clinical Notes Section Notes 02/11/2024 Chronic obstructive pulmonary disease, unspecified COPD type (ICD-10 - J44.9) 05/10/2024 Bronchitis (ICD-10 - J40) no smoking, fluids, rest, supportive measures for fever/symptom relief 10/15/2024 Chronic obstructive pulmonary disease, unspecified COPD type (ICD-10 - J44.9) 01/14/2025 Chronic obstructive pulmonary disease, unspecified COPD type (ICD-10 - J44.9) 01/14/2025 Acute left-sided low back pain with left-sided sciatica (ICD-10 - M54.42) 02/01/2025 Chronic obstructive pulmonary disease, unspecified COPD type (ICD-10 - J44.9) 02/02/2025 Acute left-sided low back pain with left-sided sciatica (ICD-10 - M54.42) 02/02/2025 Pain, joint, knee, left (ICD-10 - M25.562) Plan Of Treatment Pending Test Test Name Order Date MRI : Spine, Lumbosacral, without contra st 01/09/2024 X ray : Spine, lumbosacral 02/02/2025 X ray : Knee, left 02/02/2025 Next Appt Details Provider Name:Mark Easley ry, 02/02/2025 11:45:00 AM, [address] [facility], [address], [place], [id number], Insurance Providers Payer Name Payer Address Payer Phone Subscriber Number Group Number Insured Name Patient Relationship to Insured Coverage Start Date Coverage End Date [employer] [facility] [address] [place], [place] [id number] Beau Lieberman Self - patient is the insured Medications Administered Medication Instructions Date of Administration Dosage Notes Dexamethasone 12/03/2018 1 mL Medical (General) History 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 History ICD Code COPD allergic rhinitis Esophageal reflux tobacco abuse, started smoking at age 11 Erectile dysfunction Surgical History Surgery Date(Month/Year) Cholecystecotmy 10/05/2015 Hospitalization History Reason Date(Month/Year) [place] [facility] [place] [facility]- [facility] 08/04/2017
--- NOTE | 2025-02-02 12:13 | XR_ITS ---
FINAL REPORT TECHNIQUE: 5 views CLINICAL HISTORY: lt side sciatica lbp COMPARISON: None FINDINGS: AP, oblique and lateral views of the lumbar spine were obtained. There is no prior exam for comparison. There is no acute fracture or malalignment. Vertebral body height is preserved. Mild anterior osteophytes are present at the L2-3 and L3-4 levels. Moderate facet sclerosis is present in the lower lumbar spine. Disc space height is preserved. No acute paraspinal abnormality. IMPRESSION: Mild to moderate degenerative changes present, with no acute process. Reviewed, Interpreted and Dictated by Corby Mejia MD Transcribed by Cyndy Adamson Authenticated and [facility]
--- NOTE | 2025-02-02 12:13 | XR_ITS ---
FINAL REPORT CLINICAL HISTORY: PAIN, COMPARISON: None FINDINGS: LEFT KNEE 3 views of the left knee were obtained. There is no acute fracture or dislocation. Visualized joint spaces are normally aligned. Soft tissues are unremarkable. There is slight protuberance of the superior tibial tubercle, without definite fracture being seen. IMPRESSION: No acute bony abnormality. Reviewed, Interpreted and Dictated by Corby Mejia MD Transcribed by Cyndy Adamson Authenticated and [facility]
== END 2025-02-02 23:59 | disposition home or self-care (01) ==
PROVIDERS: PCP Family Medicine; Visit Provider Family Medicine
DX: M92.522 Juvenile osteochondrosis of tibia tubercle, left leg (principal); M47.816 Spondylosis without myelopathy or radiculopathy, lumbar region; M51.362 Other intervertebral disc degeneration, lumbar region with discogenic back pain and lower extremity pain
CPT/HCPCS: 72110; 73562

== ENCOUNTER 2025-05-16 17:01 | Outpatient (CLI) | payer OTHER, SELFPAY ==
--- OUTSIDE RECORDS SUMMARY | 2024-05-10 12:15 | XMS_ITS ---
[facility] Address [address] [place] [id number] Care Team Providers Care Purchasing Administrator Name Role Phone Mark Echols Primary Care Provider Cyndi Beavers Unavailable [phone] Allergies No Known Allergies Results Component Value Reference Range Notes CBC Fingerstick (in house) Reviewed date:05/10/2024 08:18:07 PM Interpretation: Performing Lab: Notes/Report: wbc 6.9 3.5 - 10 lym 36.5 15 - 50 mid 8.1 2 - 15 gran 55.4 35 - 80 rbc 4.85 3.5 - 5.5 hgb 15.4 11.5 - 16.5 hct 47.7 35 - 55 mcv 98.3 75 - 100 mch 31.7 25 - 35 mchc 32.3 31 - 38 plat 275 100 - 400 REASON FOR VISIT Cough, Nasal Congestion Medications Medication SIG (Take, Route, Frequency, Duration) Notes Start Date End Date Status Mucinex DM 30-600 MG 1 tablet as needed Orally every 12 hrs; Duration: 10 days 05/10/2024 Active Cyclobenzaprine HCl 5 MG 1 tablet Orally three times a day as needed Active Albuterol Sulfate HFA 108 (90 Base) MCG/ACT 2 puff(s) inhaled every 6 hours Active Promethazine-DM 6.25-15 MG/5ML 5 ml as needed Orally every 6 hrs prn 05/10/2024 Active Albuterol Sulfate HFA 108 (90 Base) MCG/ACT 2 puffs qid Inhalation qid; Duration: 30 days 05/10/2024 Active Trelegy Ellipta 200-62.5-25 MCG/ACT 1 puff(s) inhaled once a day Not-Taking dexAMETHasone 2 MG 1 tablet Orally ever y 12 hrs; Duration: 5 days 05/10/2024 Active Dicyclomine HCl 10 MG 1 cap(s) orally 4 times a day 12/11/2021 Not-Taking Cefuroxime Axetil 500 MG 1 tablet Orally every 12 hrs; Duration: 7 day(s) 05/10/2024 Active Omeprazole 40 MG 1 cap(s) orally once a day; Duration: 90 days Active Trelegy Ellipta 100-62.5-25 MCG/ACT 1 puff Inhalation Once a day 12/26/2023 Active Sildenafil Citrate 20 MG TAKE 1 TO 2 TAB LETS BY MOUTH ONCE DAILY NEEDED FOR 15 DAYS; Duration: 15 Active Montelukast Sodium 10 MG 1 tab(s) orally once a day; Duration: 90 days Active Vital Signs Weight 201.6 lbs 05/10/2024 Blood pressure systolic 120 mm Hg 05/10/20 24 Blood pressure diastolic 80 mm Hg 024 Heart Rate 94 /min 05/10/2024 Height 72 in 05/10/2024 BMI 27.34 kg/m2 05/10/2024 Encounters Encounter Location Date Provider Diagnosis [facility] [address] [facility] [address] [place], [place] [id number] 05/10/2024 Cyndi Beavers Bronchitis J4 0 Assessments Encounter Date Diagnosis (ICD Code) Assessment Notes Treatment Notes Treatment Clinical Notes Section Notes 05/10/2024 Bronchitis (ICD-10 - J40) no smoking, fluids, rest, supportive measures for fever/symptom relief Plan Of Treatment Medication Medication Name Sig Start Date Stop Date Notes Mucinex DM 30-600 MG 1 tablet as needed Orally every 12 hrs; Duration: 10 days 05/10/2024 Promethazine-DM 6.25-15 MG/5ML 5 ml as n eeded Orally every 6 hrs prn 05/10/2024 Albuterol Sulfate HFA 108 (9 0 Base) MCG/ACT 2 puffs qid Inhalation qid; Duration: 30 days 05/10/2024 dexAMETHasone 2 MG 1 tablet Orally ever y 12 hrs; Duration: 5 days 05/10/2024 Cefuroxime Axetil 500 MG 1 tablet Orally every 12 hrs; Duration: 7 day(s) 05/10/2024 Treatment Notes Assessment Notes Bronchitis no smoking, fluids, rest, supportive measures for fever/symptom relief Next Appt Details Follow Up: prn, Reason: Progress Notes * Beau BALESDOB:[birth year] (44 yo M)Acc No.[id number]:05/10/2024 Progress Notes Patient: Beau BRYANT Provider: ADRIANA Barreto :1980 A ge:43 Y S ex:Male Date:05/10/2024 Address:[address] [place], [place] [address], [id number] Pcp:Mark Echols Subjective: * Chief Complaints: * 1 . Cough, Nasal Congestion. * HPI: E NT/respiratory: 43 year old male presents with c/o sore throat. c/o cough. c/o nasal congestion P t i s here today for c/o cough with congestion and wheezing. Pt states this started on Friday at work and he went to the [facility] on . Pt states he tested negative for Flu,covid, and strep. Pt states he is coughing up brown sputum. c/o rhinorrhea. c/o facial pain/pressure. c/o headache. c/o chest congestion c annot sleep lying down. c/o smoking 1 ppd. c/o body aches. Denies : Fever. D enies : ear pain. D enies : Chest Pain. eating less; drinking water; AT [facility] was prescribed Zithromax, MDP and cough pills; he states he may feel a little better. * ROS: D ERMATOLOGY: no R tamara. n o H mj. G ASTROENTEROLOGY: no N ausea. n o V omiting. n o D iarrhea.? U ROLOGY: no D ifficulty urinating. n o B lood in urine. * 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: C OPD, Allergic rhinitis, Esophageal reflux, Tobacco abuse, started smoking at age 11, Erectile dysfunction. * Surgical History: G alblader removal 10/05/15. * Hospitalization/Major Diagno stic Procedure: [facility]che[facility]. * Family History: F ather: alive. M other: alive. 1 sister(s) . 1 son(s) , 1 daughter(s) . . * Social History: C URRENT TOBACCO USE S moking Status: Patient does smoke, packs per day: 1, Since age of: 11, Smoking preference: cigarettes. C affeine: yes, frequency:pop. Marital Status: . Alcohol: Yes, Type: , Frequency: ,Years: , Determination:, occasional. * Medications: T aking Albuterol Sulfate HFA 108 (90 Base) MCG/ACT Aerosol Solution 2 puff(s) inhaled every 6 hours , Taking Cyclobenzaprine HCl 5 MG Tablet 1 tablet Orally three times a day as needed , Taking Trelegy Ellipta 100-62.5-25 MCG/ACT Aerosol Powder Breath Activated 1 puff Inhalation Once a day , Taking Omeprazole 40 MG Capsule Delayed Release 1 cap(s) orally once a day , Taking Montelukast Sodium 10 MG Tablet 1 tab(s) orally once a day , Taking Sildenafil Citrate 20 MG Tablet TAKE 1 TO 2 TABLETS BY MOUTH ONCE DAILY NEEDED FOR 15 DAYS , Not-Taking Dicyclomine HCl 10 MG Capsule 1 cap(s) orally 4 times a day , Not-Taking Trelegy Ellipta 200-62.5-25 MCG/ACT Aerosol Powder Breath Activated 1 puff(s) inhaled once a day , Discontinued Medrol 4 MG Tablet Therapy Pack as directed orally daily , Medication List reviewed and reconciled with the patient * Allergies: N .K.D.A. Objective: * Vitals: W t:201.6, Temp:98.3, BP:120/80, HR:94, O2 Sat:98% on RA, Nurse:HENRY, Ht: 72, BMI:27.34. * Examination: E NT/Respiratory: General Appearance: well nourished and hydrated, NAD, alert, active; frequent cough. E yes: sclera and conjunctiva clear. E ars: auditory canals normal bilaterally, tympanic membranes normal bilaterally. N ose : nares patent. Sinuses : non tender bilaterally. O ral cavity : OP erythema. N lorie : supple, no cervical lymphadenopathy. H eart : RRR. L ungs: inspiratory and expiratory wheezing with bibasilar crackles. Assessment: * Assessment: 1. B damián - J40 (Primary) Plan: * Treatment: * Labs: * L ab: CBC Fingerstick (in house) (Collection Date & Time - 05/10/2024) Value Reference Range w bc 6.9 3.5 - 10 * l ym 36.5 15 - 50 * m id 8.1 2 - 15 * g ran 55.4 35 - 80 * r bc 4.85 3.5 - 5.5 * h gb 15.4 11.5 - 16.5 * h ct 47.7 35 - 55 * m cv 98.3 75 - 100 * m ch 31.7 25 - 35 * m chc 32.3 31 - 38 * p lat 275 100 - 400 * Carleen Caban 05/10/2024 4:37:40 PM > Provider reviewed results while patient in office.Cyndi Beavers 05/10/2024 8:18:05 PM > * Procedure Codes: 9 [address] [place], [address] CAPILLARY BLOOD DRAW, 62738 CBC WITH AUTO DIFF * Follow Up: p rn * Images: Billing Information: * Visit Code: 53407 Office Visit, Est Pt., Level 3. * Procedure Codes: [address] [place]. [address] CAPILLARY BLOOD DRAW. 46143 CBC WITH AUTO DIFF. * Electronic signature of Iliana Beavers APRN on 05/17/2025 at 01:40 PM EDT Sign off status: Pending * Provider: ADRIANA Barreto Date: 0 05/10/2024 Generated for Jeremie pham/Claudia/eTransmitting on: 0 05/17/2025 01:40 PM EDT History and Physical Notes * HPI (History of Present Illness) Category Sub-Category Detail Notes Category Not es ENT/respiratory sore throat eating less; drinking water; AT [facility] was prescribed Zithromax, MDP and cough pills; he states he may feel a little better facial pain/pressure ear pain Chest Pain cough Fever headache chest congestion cannot sleep lying d own rhinorrhea nasal congestion Pt is here today for c/o cough with congestion and wheezing. Pt states this started on Friday at work and he went to the [facility] on . Pt states he tested negative for Flu,covid, and strep. Pt states he is coughing up brown sputum smoking 1 ppd body aches Examination Category Sub-Category Detail Notes Category Not es ENT/Respiratory Oral cavity : OP erythema Sinuses : non tender bilateral ly Ears: auditory canals norm al bilaterally, tympanic membranes normal bilaterally Neck : supple, no cervical lymphadenopathy Heart : RRR Lungs: inspiratory and expi ratory wheezing with bibasilar crackles General Appearance: well nourished and h ydrated, NAD, alert, active; frequent cough Nose : nares patent Eyes: sclera and conjuncti va clear
--- OUTSIDE RECORDS SUMMARY | 2025-01-14 11:30 | XMS_ITS ---
Author Organization [facility] Address [address] [place] [phone] Care Team Providers Care Home Health Travel Pt Name Role Phone Rosalba Echolsian Primary Care Provider Allergies No Known Allergies [...] y 12 hrs; Duration: 5 days 05/10/2024 Not-Taking Mucinex DM 30-600 MG 1 tablet as needed Orally every 12 hrs; Duration: 10 days 05/10/2024 Not-Taking Albuterol Sulfate HFA 108 (90 Base) MCG/ACT 2 puffs qid Inhalation qid; Duration: 30 days 05/10/2024 Not-Taking Cefuroxime Axetil 500 MG 1 tablet Orally every 12 hrs; Duration: 7 day(s) 05/10/2024 Not-Taking Meloxicam 15 MG 1 tablet Orally Once a day; Duration: 30 days 01/14/2025 Active Albuterol Sulfate HFA 108 (90 Base) MCG/ACT 2 puff(s) inhaled every 6 hours Not-Taking Cyclobenzaprine HCl 5 MG 1 tablet Orally three times a day as needed Not-Taking Wixela Inhub 250-50 MCG/ACT 1 puff Inhal ation Twice a day 01/14/2025 Active Problems Problem Type SNOMED Code ICD Code Onset Dates Problem Status W/U Status Risk Notes Problem Sciatica ([id number]) Acute left-sided low back pain with left-sided sciatica (M54.42) Active confirmed Vital Signs Weight 201.8 lbs 01/14/2025 Blood pressure systolic 130 mm Hg 01/15/20 25 Blood pressure diastolic 88 mm Hg 025 Heart Rate 91 /min 01/14/2025 Height 72 in 01/14/2025 BMI 27.37 kg/m2 01/14/2025 Encounters Encounter Location Date Provider Diagnosis [facility] [address] [place] [phone] 01/14/2025 Mark Echols Chronic obstructive pulmonary disease, [...] 15 MG 1 tablet Orally Once a day; Duration: 30 days 01/14/2025 Trelegy Ellipta 100-62.5-25 MCG/ACT 1 puff Inhalation Once a day 12/26/2023 Wixela Inhub 250-50 MCG/ACT 1 puff Inhalation Twice a day 01/14/2025 Next Appt Details Follow Up: via phone to repo rt progress, Reason: Progress Notes * Beau BALESDOB:[birth year] (44 yo M)Acc No.[id number]:01/14/2025 Progress Notes Patient: Beau BRYANT Provider: Chris Echols M.D. :1980 A ge:44 Y S ex:Male Date:01/14/2025 Address:[address] [place] [address], [id number] Subjective: * Chief Complaints: * 1 . Check up on trelegy. * HPI: H PI: 44 year old male presents with c/o Patient is here today for?Pt is here today for a check up on Trelegy. Pt sts he is also here to discuss a pinched nerve in his back. He was [facility] 3 times in the past [...] Diagno stic Procedure: H -chest pain 08/04/17, [facility]-right elbow pain and swelling 09/04/17. * Family [...] G eneral Examination: General Appearance: N AD. H eart: R SR. L ungs:?clear to auscultation. L ower back: Straight leg raising test: positive at 45 degrees on left. G ait: stands and moves slowly due to pain. Assessment: * Assessment: 1. C hronic obstructive [...] v ia phone to report progress * Images: Billing Information: * Visit Code: 63122 Office Visit, Est Pt., Level 3. * Procedure Codes: * Electronic signature of Haley Echols MD on 05/17/2025 at 01:39 PM EDT Sign off status: Pending * Provider: Chris Echols M.D. Date: 0 01/14/2025 Generated for Jeremie pham/Claudia/Kirsty on: 0 05/17/2025 01:39 PM EDT History and Physical Notes * HPI (History of Present Illness) Category Sub-Category Detail Notes Category Not es HPI Patient is here today for Pt is here today for a check up on Trelegy. Pt sts he is also here to discuss a pinched nerve in his back. He was seen in the ER at [facility] 3 times in the past [...]
--- OUTSIDE RECORDS SUMMARY | 2025-01-29 06:00 | XMS_ITS ---
Author Organization [facility] Address [address] [place] [phone] Care Team Providers Care Oil Well Engineer Name Role Phone Mark Echols Primary Care Provider Allergies No Known Allergies REASON FOR VISIT hurt knee, pinched nerve Encounters Encounter Location Date Provider Diagnosis [facility] [address] [facility] [address] [place] [phone] 01/29/2025 Mark Echols Plan Of Treatment No Information Progress Notes * Beau BALESDOB:[birth year] (44 yo M)Acc No.[id number]:01/29/2025 Progress Notes Patient: Beau BRYANT Provider: Chris Echols M.D. :1980 A ge:44 Y S ex:Male Date:01/29/2025 Address:[address] [place], [place] [address] [id number] Subjective: * Chief Complaints: * 1 . Hurt knee, pinched nerve. * ROS: D ERMATOLOGY: no R tamara. [...] 10/05/15. * Hospitalization/Major Diagno stic Procedure: H [facility]-chest pain 08/04/17, [facility]-right elbow pain and swelling 09/04/17. * Family [...] , Frequency: ,Years: , Determination:, occasional. * Allergies: N .K.D.A. Objective: * Vitals: Assessment: Plan: * Treatment: * Images: Billing Information: * Visit Code: * Procedure Codes: * Electronic signature of Haley Echols MD on 05/17/2025 at 01:39 PM EDT Sign off status: Pending * Provider: Chris Echols M.D. Date: 0 01/29/2025 Generated for Jeremie pham/Claudia/Geeitting on: 0 05/17/2025 01:39 PM EDT
--- OUTSIDE RECORDS SUMMARY | 2025-02-02 07:45 | XMS_ITS ---
Author Organization [facility] Address [address] [facility] [address] [place] [phone] Care Team Providers Care Accreditation Specialist Name Role Phone Mark Echols Primary Care Provider Allergies No Known Allergies Results Component Value Reference Range Notes X ray : Spine, lumbosacral Reviewed date:02/04/2025 09:55:08 AM Interpretation:mild to moderate degenerative changes Performing Lab: Notes/Report: mild to moderate degenerative changes X ray : Knee, left Reviewed date:02/04/2025 09:55:08 AM Interpretation:nothing acute Performing Lab: Notes/Report: nothing acute REASON FOR VISIT knee Medications Medication SIG (Take, Route, Frequency, Duration) Notes Start Date End Date Status Trelegy Ellipta 200-62.5-25 MCG/ACT 1 puff(s) inhaled once a day Active Nabumetone 750 MG 2 tabs Orally daily; Duration: 30 days 02/02/2025 Active Vital Signs Weight 200 lbs 02/02/2025 Blood pressure systolic 130 mm Hg 02/03/20 25 Blood pressure diastolic 80 mm Hg 025 Heart Rate 115 /min 02/02/2025 Height 72 in 02/02/2025 BMI 27.12 kg/m2 02/02/2025 Encounters Encounter Location Date Provider Diagnosis [facility] [address] [facility] [address] [place] [phone] 02/02/2025 Mark Echols Acute left-sided low back pain with left-sided sciatica M54.42 ; Pain, joint, knee, left M25.562 and BMI 27.0-27.9,adult Z68.27 Assessments Encounter Date Diagnosis (ICD Code) Assessment Notes Treatment Notes Treatment Clinical Notes Section Notes 02/02/2025 Acute left-sided low back pain with left-sided sciatica (ICD-10 - M54.42) Discussed starting physical therapy. Patient will call when he wants to proceed 02/02/2025 Pain, joint, knee, left (ICD-10 - M25.562) 02/02/2025 BMI 27.0-27.9,adult (ICD-10 - Z68.27) Plan Of Treatment Medication Medication Name Sig Start Date Stop Date Notes Nabumetone 750 MG 2 tabs Orally daily; Duration: 30 days 0 02/02/2025 Treatment Notes Assessment Notes Acute left-sided low back pa in with left-sided sciatica Discussed starting physical therapy. Patient will call when he wants to proceed Next Appt Details Follow Up: via phone to repo rt test results, Reason: Progress Notes * Beau BALESDOB:[birth year] (44 yo M)Acc No.[id number]:02/02/2025 Progress Notes Patient: Beau BRYANT Provider: Chris Echols M.D. :1980 A ge:44 Y S ex:Male Date:02/02/2025 Address:[address] [place] [address] [place], [id number] Subjective: * Chief Complaints: * 1 . Knee. * HPI: K nee/Barron: 44 year old male presents with c/o knee pain P t complains of lt knee pain and swelling for about 3 weeks. Pt states he has been off of work for 3 weeks as well due to the pain. Pt states there are days he cannot walk and is requesting x-ray of knee. * ROS: D ERMATOLOGY: no R tamara. n o H mj. G ASTROENTEROLOGY: no N ausea. n o V omiting. U ROLOGY: no D ifficulty urinating. n o B lood in urine. * 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: C OPD, Allergic rhinitis, Esophageal reflux, Tobacco abuse, started smoking at age 11, Erectile dysfunction. * Surgical History: C holecystecotmy 10/05/2015. * Hospitalization/Major Diagno stic Procedure: C hest Pain- [facility] 08/04/2017, [facility] Elbow Pain and Swelling- [facility] 09/04/2017. * Family History: F ather: alive. M [...] occasional. * Medications: T aking Trelegy Ellipta 200-62.5-25 MCG/ACT Aerosol Powder Breath Activated 1 puff(s) inhaled once a day , Discontinued Meloxicam 15 MG Tablet 1 tablet Orally Once a day , Discontinued Advair Diskus 250-50 MCG/ACT Aerosol Powder Breath Activated 1 puff Inhalation Twice a day , Discontinued Albuterol Sulfate HFA 108 (90 Base) MCG/ACT Aerosol Solution 2 puff(s) inhaled every 6 hours , Discontinued Cyclobenzaprine HCl 5 MG Tablet 1 tablet Orally three times a day as needed , Discontinued Albuterol Sulfate HFA 108 (90 Base) MCG/ACT Aerosol Solution 2 puffs qid Inhalation qid , Discontinued Cefuroxime Axetil 500 MG Tablet 1 tablet Orally every 12 hrs , Discontinued dexAMETHasone 2 MG Tablet 1 tablet Orally every 12 hrs , Discontinued Mucinex DM 30-600 MG Tablet Extended Release 12 Hour 1 tablet as needed Orally every 12 hrs , Discontinued Promethazine-DM 6.25-15 MG/5ML Syrup 5 ml as needed Orally every 6 hrs prn , Discontinued Dicyclomine HCl 10 MG Capsule 1 cap(s) orally 4 times a day , Medication List reviewed and reconciled with the patient * Allergies: N .K.D.A. Objective: * Vitals: W t: 200, Temp: 97.9, BP: 130/80, HR: 115, Nurse: lali, Ht: 72, BMI:27.12. * Examination: G eneral Examination: General Appearance: N AD, walking with a slight limp. ? K nee / Barron: Knee: l eft. P alpation: n o tenderness on joint lines or collateral ligaments, some tenderness over the patella tendon. C ollateral ligaments:?intact medially and laterally. R robert of motion: n ormal flexion and extension. Assessment: * Assessment: 1. A cute left-sided low back pain with left-sided sciatica - M54.42 (Primary) 2 . P ain, joint, knee, left - M25.562 3 . B IN 27.0-27.9,adult - Z68.27? Plan: * Treatment: Notes: Discussed starting physical therapy. Patient will call when he wants to proceed??2.?Pain, joint, knee, left?Imaging: X ray : Knee, left (Performed Date - 02/02/2025)?nothing acute* Kimi Servin 02/04/20 04:14:37 PM EDT > pt called about results Rebecca De La Cruz 02/04/2025 09:54:52 AM EDT > See phone encounter * Procedure Codes: G 8420 BMI<30 AND >=22 CALC & DOCU, G8783 BP SCR PRFRM RCMDD DEFIND SCR INTVL, G8752 MOST RECENT SYSTOLIC BP < 140MM HG, G8754 MOST RECENT DIASTOLIC BP < 90MM HG * Follow Up: v ia phone to report test results * Images: Billing Information: * Visit Code: 38523 Office Visit, Est Pt., Level 4. * Procedure Codes: G8420 BMI<30 AND >=22 CALC & DOCU. G8783 BP SCR PRFRM RCMDD DEFIND SCR INTVL. G8752 MOST RECENT SYSTOLIC BP < 140MM HG. G8754 MOST RECENT DIASTOLIC BP < 90MM HG. * Electronic signature of Haley Echols MD on 05/17/2025 at 01:40 PM EDT Sign off status: Pending * Provider: Chris Echols M.D. Date: 02/02/2025 Generated for Jeremie pham/Claudia/Geeitting on: 05/17/2025 01:40 PM EDT History and Physical Notes * HPI (History of Present Illness) Category Sub-Category Detail Notes Category Not es Knee/Barron knee pain Pt complains of lt knee pain and swelling for about 3 weeks. Pt states he has been off of work for 3 weeks as well due to the pain. Pt states there are days he cannot walk and is requesting x-ray of knee Examination Category Sub-Category Detail Notes Category Not es General Examination General Appearance: NAD, [place] with a slight limp Knee / Barron Palpation: no tenderness on joint lines or collateral ligaments, some tenderness over the patella tendon Knee: left Range of motion: normal flexion and e xtension Collateral ligaments: intact medially an d laterally
--- OUTSIDE RECORDS SUMMARY | 2025-02-09 09:45 | XMS_ITS ---
Author Organization Carlos Alberto Address [address] [facility] [address] [place] [id number] Care Team Providers Care Caregivers Homecare Name Role Phone Mark Echols Primary Care Provider Allergies No Known Allergies REASON FOR VISIT clearance for work Medications Medication SIG (Take, Route, Frequency, Duration) Notes Start Date End Date Status Sildenafil Citrate 20 MG take 1 to 2 tab s orally once a day PRN; Duration: 7 days Active Trelegy Ellipta 200-62.5-25 MCG/ACT 1 puff(s) inhaled once a day Active Nabumetone 750 MG 2 tabs Orally daily; Duration: 30 days 02/02/2025 Active Problems Problem Type SNOMED Code ICD Code Onset Dates Problem Status W/U Status Risk Notes Problem Arthropathy of lumbar facet joint (223558279) Lumbar facet arthropathy (M47.816) Active confirmed Vital Signs Weight 207 lbs 02/09/2025 Blood pressure systolic 132 mm Hg 02/10/20 25 Blood pressure diastolic 72 mm Hg 025 Heart Rate 91 /min 02/09/2025 Height 72 in 02/09/2025 BMI 28.07 kg/m2 02/09/2025 Encounters Encounter Location Date Provider Diagnosis [facility] [address] [place] [id number] 02/09/2025 Mark Echols Acute left-sided low back pain with left-sided sciatica M54.42 ; Lumbar facet arthropathy M47.816 and BMI 28.0-28.9,adult Z68.28 Assessments Encounter Date Diagnosis (ICD Code) Assessment Notes Treatment Notes Treatment Clinical Notes Section Notes 02/09/2025 Acute left-sided low back pain with left-sided sciatica (ICD-10 - M54.42) Xray results provided to patient. He is going to follow up with his chiropractor 02/09/2025 Lumbar facet arthropathy (ICD-10 - M47.816) 02/09/2025 BMI 28.0-28.9,adult (ICD-10 - Z68.28) Plan Of Treatment Treatment Notes Assessment Notes Acute left-sided low back pa in with left-sided sciatica Xray results provided to patient. He is going to follow up with his chiropractor Next Appt Details Follow Up: via phone to repo rt progress, Reason: Progress Notes * Beau BALESDOB:[birth year] (44 yo M)Acc No.[id number]:02/09/2025 Progress Notes Patient: Beau BRYANT Provider: Crhis Echols M.D. :1980 A ge:44 Y S ex:Male Date:02/09/2025 Address:[address] [place] [address], [id number] Subjective: * Chief Complaints: * 1 . Clearance for work. * HPI: L ower back: 44 year old male presents with c/o Low Back Pain P t here to follow up on Sciatica. Pt states he is doing better and would like to discuss going back to work.? * ROS: D ERMATOLOGY: no H mj. G ASTROENTEROLOGY: no N ausea. n o V omiting. n o D iarrhea.? U ROLOGY: no D ifficulty urinating. n o B lood in urine. * 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: C OPD, Allergic rhinitis, Esophageal reflux, Tobacco abuse, started smoking at age 11, Erectile dysfunction. * Surgical History: C holecystecotmy 10/05/2015. * Hospitalization/Major Diagno stic Procedure: C hest Pain- [facility] 08/04/2017, RT Elbow Pain and Swelling- [place] 09/04/2017. * Family History: F ather: alive. [...] 1 puff(s) inhaled once a day , Taking Nabumetone 750 MG Tablet 2 tabs Orally daily , Taking Sildenafil Citrate 20 MG Tablet take 1 to 2 tabs orally once a day PRN , Medication List reviewed and reconciled with the patient * Allergies: N .K.D.A. Objective: * Vitals: W t: 207, Temp: 98.1, BP: 132/72, HR: 91, Nurse: ROHITH, Ht: 72, BMI:28.07. * Examination: G eneral Examination: General Appearance: N AD. N eurologic Exam: g ait normal. Assessment: * Assessment: 1. A cute left-sided low back pain with left-sided sciatica - M54.42 (Primary) 2 . L umbar facet arthropathy - M47.816 3 . B [place] 28.0-28.9,adult - Z68.28? Plan: * Treatment: * Procedure Codes: G 8783 BP SCR PRFRM RCMDD DEFIND SCR INTVL, G8752 MOST RECENT SYSTOLIC BP < 140MM HG, G8754 MOST RECENT DIASTOLIC BP < 90MM HG, G8420 BMI<30 AND >=22 CALC & DOCU * Follow Up: v ia phone to report progress * Images: Billing Information: * Visit Code: 88357 Office Visit, Est Pt., Level 3. * Procedure Codes: G8783 BP SCR PRFRM RCMDD DEFIND SCR INTVL. G8752 MOST RECENT SYSTOLIC BP < 140MM HG. G8754 MOST RECENT DIASTOLIC BP < 90MM HG. G8420 BMI<30 AND >=22 CALC & DOCU. * Electronic signature of Haley Echols MD on 05/17/2025 at 01:40 PM EDT Sign off status: Pending * Provider: Chris Echols M.D. Date: 02/09/2025 Generated for Jeremie pham/Claudia/Johanransmitting on: 0 05/17/2025 01:40 PM EDT History and Physical Notes * HPI (History of Present Illness) Category Sub-Category Detail Notes Category Not es Lower back Low Back Pain Pt here to brea w up on Sciatica. Pt states he is doing better and would like to discuss going back to work Examination Category Sub-Category Detail Notes Category Not es General Examination General Appearance: NAD Neurologic Exam: gait normal
[2025-05-16 20:46] LABS: Coronavirus 19, PCR Not Detected (NotDetected); Influenza A, PCR Not Detected (NotDetected); Influenza B, PCR Not Detected (NotDetected)
--- OUTSIDE RECORDS SUMMARY | 2025-05-17 13:40 | XMS_ITS | Patient Health Record ---
[facility] Address [address] [facility] [address] [place] [id number] Care Team Providers Care Principal Statistical Scientist Name Role Phone Mark Echols Primary Care Provider [phone] Allergies No Known Allergies Results Component Value Reference Range Notes X ray : Knee, left Reviewed date:02/04/2025 09:55:08 AM Interpretation:nothing acute Performing Lab: Notes/Report: nothing acute X ray : Spine, lumbosacral Reviewed date:02/04/2025 09:55:08 AM Interpretation:mild to moderate degenerative changes Performing Lab: Notes/Report: mild to moderate degenerative changes Reason For Referral No Information Medications Medication SIG (Take, Route, Frequency, Duration) Notes Start Date End Date Status Albuterol Sulfate HFA 108 (90 Base) MCG/ACT 2 puff(s) inhaled every 6 hours Active Sildenafil Citrate 20 MG take 1 to 2 tab s orally once a day PRN; Duration: 30 days Active Trelegy Ellipta 200-62.5-25 MCG/ACT 1 puff(s) inhaled once a day Active Nabumetone 750 MG 2 tabs Orally daily; Duration: 30 days 02/02/2025 Active Immunizations Vaccine Route Administration Date Status Comme nts COVID 19 Moderna Unknown 03/26/2021 Administered COVID 19 Moderna Unknown 04/24/2021 Administered Tetanus Tdap-Adacel (over 7yrs) IM Intramuscular 12/08/2013 Administered Tetanus Tdap-Adacel (over 7yrs) Unknown 01/23/2019 Administered Problems Problem Type SNOMED Code ICD Code Onset Dates Problem Status W/U Status Risk Notes Problem COPD - Chronic obstructive pulmonary disease (49725952) COPD [Chronic obstructive pulmonary disease] (496) Active confirmed Problem Allergic rhinitis (73505363) ALLERGIC RHINITIS NOS (477.9) Active confirmed Problem Asthma (877022093) Asthma (J45.909) Active conf irmed Problem Arthropathy of lumbar facet joint (701045113) Lumbar facet arthropathy (M47.816) Active confirmed Problem Acute exacerbation of chronic obstructive airways disease (027591576) COPD exacerbation (J44.1) Active confirmed Problem Uncomplicated moderate persistent asthma (838156905) Moderate persistent asthma without complication (J45.40) Active confirmed Problem Acute nasopharyngitis (42516933) Acute nasopharyngitis (J00) Active confirmed Problem COPD - Chronic obstructive pulmonary disease (28202376) Chronic obstructive pulmonary disease, unspecified COPD type (J44.9) Active confirmed Problem Gastroesophageal reflux disease (115014794) Gastroesophageal reflux disease, esophagitis presence not specified (K21.9) Active confirmed Problem Erectile dysfunction (disorder) (996487733) Erectile dysfunction, unspecified erectile dysfunction type (N52.9) Active confirmed Problem Mild intermittent asthma (093914473) Asthmatic bronchitis, mild intermittent, uncomplicated (J45.20) Active confirmed Problem Sciatica (21231932) Acute left-s ided low back pain with left-sided sciatica (M54.42) Active confirmed Problem Seasonal allergic rhinitis (161931698) Seasonal allergic rhinitis, unspecified allergic rhinitis trigger (J30.2) Active confirmed Problem Tobacco use (698465042) Tobacco use disorder (F17.200) Active confirmed Problem Exacerbation of moderate persistent asthma (disorder) (937067554) Moderate persistent asthmatic bronchitis with acute exacerbation (J45.41) Active confirmed Problem Gastroesophageal reflux disease (984582365) Gastroesophageal reflux disease, unspecified whether esophagitis present (K21.9) Active confirmed Vital Signs Heart Rate 91 /min 02/09/2025 Blood pressure diastolic 72 mm Hg 02/09/2025 Height 72 in 02/09/2025 Blood pressure systolic 132 mm Hg 02/09/2025 Weight 207 lbs 02/09/2025 BMI 28.07 kg/m2 02/09/2025 Encounters Encounter Location Date Provider Diagnosis [facility] [address] [place] [id number] 01/14/2025 Mark Echols Chronic obstructive pulmonary disease, unspecified COPD type J44.9 and Acute left-sided low back pain with left-sided sciatica M54.42 [facility] [address] [place], [place] [id number] 02/02/2025 Mark Allerton Acute left-sided low back pain with left-sided sciatica M54.42 ; Pain, joint, knee, left M25.562 and BMI 27.0-27.9,adult Z68.27 [facility] [address] [place], [place] [id number] 02/09/2025 Mark Allerton Acute left-sided low back pain with left-sided sciatica M54.42 ; Lumbar facet arthropathy M47.816 and BMI 28.0-28.9,adult Z68.28 [facility] [address] [place], [place] [id number] 05/19/2024 Mark Allerton [facility] [address] [place] [id number] 06/03/2024 Mark Allerton [facility] [address] [place] [id number] 09/20/2024 Mark Allerton [facility] [address] [place] [id number] 10/01/2024 Mark Allerton [facility] [address] [place] [id number] 10/15/2024 Mark Allerton Chronic obstructive pulmonary disease, unspecified COPD type J44.9 [facility] [address] [place] [id number] 11/24/2024 Mark Allerton [facility] [address] [place] [id number] 12/20/2024 Mark Allerton [facility] [address] [place] [id number] 01/11/2025 Mark Allerton [facility] [address] [place] [id number] 02/01/2025 Mark Allerton Chronic obstructive pulmonary disease, unspecified COPD type J44.9 [facility] [address] [place] [id number] 02/02/2025 Mark Allerton [facility] [address] [place] [id number] 02/04/2025 Mark Allerton [facility] [address] [place] [id number] 02/14/2025 Mark Allerton [facility] [address] [place] [id number] 02/21/2025 Mark Allerton [facility] [address] [place] [id number] 02/24/2025 Mark Allerton [facility] [address] [place] [id number] 02/28/2025 Mark Allerton [facility] [address] [place] [id number] 03/11/2025 Mark Allerton [facility] [address] [place] [id number] 03/17/2025 Mark Allerton [facility] [address] [place], [place] [id number] 03/24/2025 Mark Allerton Acute left-sided low back pain with left-sided sciatica M54.42 [facility] [address] [place], [place] [id number] 04/04/2025 Mark Allerton Assessments Encounter Date Diagnosis (ICD Code) Assessment Notes Treatment Notes Treatment Clinical Notes Section Notes 10/15/2024 Chronic obstructive pulmonary disease, unspecified COPD [...] Pain, joint, knee, left (ICD-10 - M25.562) 02/09/2025 Lumbar facet arthropathy (ICD-10 - M47.816) 02/09/2025 Acute left-sided low back pain with left-sided sciatica (ICD-10 - M54.42) Xray results provided to patient. He is going to follow up with his chiropractor 03/24/2025 Acute left-sided low back pain with left-sided sciatica (ICD-10 - M54.42) 02/09/2025 BMI 28.0-28.9,adult (ICD-10 - Z68.28) 02/02/2025 BMI 27.0-27.9,adult (ICD-10 - Z68.27) Plan Of Treatment Pending Test Test Name Order Date MRI : Spine, Lumbosacral, without contra st 01/09/2024 Insurance Providers Payer Name Payer Address Payer Phone Subscriber Number Group Number Insured Name Patient Relationship to Insured Coverage Start Date Coverage End Date [employer] [facility] [address] [place], [place] [id number] Beau Lieberman Self - patient is the insured Medications Administered Medication Instructions Date of Administration Dosage Notes Dexamethasone 12/03/2018 1 mL Medical (General) History 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 History ICD Code COPD allergic rhinitis Esophageal reflux tobacco abuse, started smoking at age 11 Erectile dysfunction Surgical History Surgery Date(Month/Year) Cholecystecotmy 10/05/2015 Hospitalization History Reason Date(Month/Year) [place] [facility] [place] Chest Pain- [facility] 08/04/2017
--- OUTSIDE RECORDS SUMMARY | 2025-05-17 13:40 | XMS_ITS | Clinical Summary ---
[facility] Address [address] [place] [address] Care Team Providers Care Saturation Diver Name Role Phone Mark Echols MD Primary Care Provider [phone] Allergies No known active allergies Medications TRELEGY ELLIPTA 100-62.5-25 MCG/INH aerosol powder Inhale 1 puff Daily. 0 Active albuterol sulfate HFA 108 (90 Base) MCG/ACT inhalerIndicatio ns:Other emphysema Inhale 2 puffs Every 4 (Four) Hours As Needed for Wheezing. 6.7 g 11 0 Active pantoprazole (PROTONIX) 40 MG EC tabletIndication s:GERD without esophagitis Take 1 tablet by mouth Daily. On an empty stomach 30 min prior to breakfast 90 tablet 3 0 Active montelukast (SINGULAIR) 10 MG tabletIndication s:Non-seasonal allergic rhinitis, unspecified trigger Take 1 tablet by mouth Every Night. 30 tablet 11 0 Active Active Problems Problem Noted Date Diagnosed Date COPD 01/11/2020 Non-seasonal allergic rhinitis 01/11/2020 Tobacco abuse 01/11/2020 Lung nodule 01/11/2020 GERD without esophagitis 01/11/2020 Immunizations Immunization Administration Dates Next Due Tdap 01/23/2019 Family History Relation Name Status Comments Child 1 Alive Child 2 Alive Father Alive Mother Alive Sister Alive Social History Tobacco Use Types Packs/Day Years Used Date Smoking Tobacco: Some Days Cigarettes 0.1 20 Smokeless Tobacco: Never Alcohol Use Standard Drinks/Week Comments Yes 0 (1 standard drink = 0.6 oz pur e alcohol) social Abuse Screen Answer Date Recorded Unsafe at Home or Work/School Not on file Feels Threatened by Someone? Not on file 07/2023 Does Anyone Keep You from Co ntacting Others or Doint Things Outside the Home? Not on file 06/05/2023 Physical Sign of Abuse Present Not on file 1 Housing Stability Answer Date Recorded Current Living Arrangements Not on file 05/25 Potentially Unsafe Housing Conditions Not on damion e 06/05/2023 Family and Community Support Answer Pa e Recorded Help with Day-to-Day Activities Not on file 06/05/2023 Lonely or Isolated Not on file 06/05/2023 Employment Answer Date Recorded Do you want help finding or keeping work or a luis b? Not on file 06/05/2023 Disabilities Answer Date Recorded Concentrating, Remembering, or Making Decisions Difficulty Not on file 06/05/2023 Doing Errands Independently Difficulty Not on fi le 06/05/2023 Education Answer Date Recorded Help with school or training? Not on file Preferred Language Not on file 06/05/2023 Sex and Gender Information Value Date Recorded Sex Assigned at Not on file Legal Sex Male 2:57 PM EDT Gender Identity Not on file Sexual Orientation Not on file Last Filed Vital Signs Vital Sign Reading Time Taken Comments Blood Pressure 122/80 01/11/2020 9:15 AM EDT Pulse 98 01/11/2020 9:15 AM EDT Temperature 37 C (98.6 F) 02/22/2020 9:20 AM EDT Respiratory Rate - - Oxygen Saturation 96% 01/11/2020 9:1 5 AM EDT resting at roomair Inhaled Oxygen Concentration - - Weight 91.6 kg (202 lb) 02/22/2020 9:20 AM EDT Height 185.4 cm (6' 1 ) 02/22/2020 9:20 AM EDT Body Mass Index 26.65 02/22/2020 9:20 AM EDT Plan of Treatment Health Maintenance Due Date Last Done Comments ANNUAL PHYSICAL 01/10/2020 HEPATITIS C SCREENING 01/10/2020 COLOGUARD 11/02/2023 COLON CANCER SCREENING 5 YEA R SIGMOIDOSCOPY 11/02/2023 COLONOSCOPY 11/02/2023 COLORECTAL CANCER SCREENING 11/02/2023 CT COLONOGRAPHY 11/02/2023 FECAL OCCULT BLOOD TEST 11/02/2023 FIT Testing (1 year) 11/02/2023 INFLUENZA VACCINE 03/25/2025 TDAP/TD VACCINES (2 - Td or Tdap) 01/23/2029 019 Pneumococcal Vaccine 0-49 Aged Out No longer eligible based on patient's age to complete this topic Insurance [facility] PPO Care Teams Saturation Diver Relationship Specialty Start Date End Date Mark Echols MD [address] [facility] [address] [place] [id number] PCP - General Family Medicine 01/11/20
== END 2025-05-16 23:59 | disposition home or self-care (01) ==
LOC: LAB.DROPOF 05-17 13:38
PROVIDERS: PCP Nurse Practitioner; Visit Provider Nurse Practitioner
DX: J06.9 Acute upper respiratory infection, unspecified (principal)
CPT/HCPCS: 87631